=== PATIENT | female | born 1955 | race Caucasian/White ===

== ENCOUNTER 2019-06-17 01:18 | Day surgery (SDC) | payer OTHER, SELFPAY ==
[2019-06-10 16:11] VITALS: BMI 31.0
[2019-06-17 11:07] VITALS: BP 117/67; PULSE 71; RESP 18; TEMP 35.8; O2SAT 97; BMI 32.0
[2019-06-17] MEDS: LACTATED RINGERS 1,000 ML 150 ML IV CONT (11:16)
--- NOTE | 2019-06-17 11:41 | WPDANESEPPF ---
Anes - Initial Pre Proc Eval Procedure: Operation Date: 06/17/19 12:00 Proposed Procedures p Screening Colonoscopy - Ad Champagne MD Date/Time: 06/17/19 11:41 Surgeon: Ad Champagne MD Pre Op Diagnosis: Neoplasm Screening Patient Data Age: 64 Gender: F Height: 5 ft 4 in Weight: 84.6 kg Last Vital Signs Temp 35.8 C L 06/17/19 11:07 Pulse 71 06/17/19 11:07 Resp 18 06/17/19 11:07 BP 117/67 06/17/19 11:07 Pulse Ox 97 06/17/19 11:07 Allergies Allergy/AdvReac Type Severity Reaction Status Date / Time No Known Allergies Allergy Mild Verified 06/17/19 11:03 Home Medications Medication Instructions Recorded Confirmed Type atorvastatin 10 mg tablet 10 mg PO DAILY #30 tablet 05/02/19 06/10/19 Rx bumetanide 1 mg tablet 1 mg PO DAILY 05/02/19 06/10/19 History carvedilol 25 mg tablet 25 mg PO Q12H 05/02/19 06/10/19 History cholecalciferol (vitamin D3) 50 2,000 unit PO DAILY 05/02/19 06/10/19 History mcg (2,000 unit) tablet ramipril 2.5 mg capsule 2.5 mg PO DAILY 05/02/19 06/10/19 History calcium carbonate-vitamin D3 1 tablet PO DAILY 06/10/19 06/10/19 History [Calcium 500 + D] cholecalciferol (vitamin D3) 50 mcg PO DAILY 06/10/19 06/10/19 History [Vitamin D3] ferrous sulfate 27 mg PO DAILY 06/10/19 06/10/19 History irxlfbbl-gew-WX-lycopen-lutein 1 tablet PO DAILY 06/10/19 06/10/19 History [Centrum Silver] omega 4-iox-qno-fish oil [Fish Oil] 1 cap PO DAILY 06/10/19 06/10/19 History vitamin B complex [B 1 tablet PO DAILY 06/10/19 06/10/19 History Complex-Vitamin B12] Patient hx anesthesia problems: none Family hx anesthesia problems: none PMFSH Past Medical History Medical History (Updated 06/17/19 @ 11:45 by Silvino Mac MD) Cardiomyopathy HTN (hypertension) Hyperlipidemia Obesity Surgical History Surgical History Hx of cholecystectomy (~1980) Family History Family History Mother Hypertension Family history of elevated blood lipids Family history of neuropathy Sibling Hypertension Grandparent Family history of lung cancer Father Family history of lung cancer, Onset Age: 71 Other Family history of cardiovascular disease No family history of cardiovascular disease Social History Social History Smoking status: Never smoker Alcohol intake: current Anes - Eval Final PreProcedure Day of Procedure 06/17/19 11:41 Patient weight: obese Heart: regular rate and rhythm Lungs: clear to auscultation Airway: Mallampati scale class II Neurological: alert and oriented Last oral intake: >/= 8 hours ASA classification: III Emergent: no Anesthetic plan: proceed Anesthesia type and monitoring: general GIVS and standard monitoring Informed Consent: The patient's anesthetic plan and its attendant risks and benefits were discussed with the patient/family/POA. Questions were solicited and answers provided to the satisfaction of the patient/family/POA.
--- NOTE | 2019-06-17 12:45 | PM.HPGS ---
History of Present Illness History of Present Illness Consent: Risks, benefits, and alternatives have been discussed and questions answered. Patient agrees to proceed with procedure. Chief complaint: Neoplasm Screening Narrative: Jessy Mae is a 64 year old female her last colonoscopy 10 years ago but mother just diagnosed with colon cancer Review of Systems Constitutional: Constitutional: Denies headache(s) and Denies weakness Eyes: Eyes: Denies blurry vision ENT: Reports Normal hearing present, Denies headache(s) and Denies neck pain Cardiovascular: Cardiovascular: Denies chest pain and Denies dyspnea Respiratory: Respiratory: Denies dyspnea Gastrointestinal: Gastrointestinal: Reports no additional gastrointestinal complaints Genitourinary: Genitourinary: Denies dysuria Musculoskeletal: Musculoskeletal: Denies neck pain Integumentary/Breasts: Skin/Breast: Denies dry skin Neurologic: Reports Normal hearing present, Denies headache(s) and Denies weakness Psychiatric: Psychiatric: Denies anxiety Endocrine: Endocrine: Denies change in body appearance Hematologic/Lymphatic: Hematologic/Lymphatic: Denies easy bleeding Allergic/Immunologic: Allergic/Immunologic: Denies urticaria PMFSH Past Medical History Medical History (Updated 06/17/19 @ 12:45 by Ad Champagne MD) Cardiomyopathy Family history of colon cancer in mother HTN (hypertension) Hyperlipidemia Obesity Surgical History Surgical History Hx of cholecystectomy (~1980) Family History Family History Mother Hypertension Family history of elevated blood lipids Family history of neuropathy Sibling Hypertension Grandparent Family history of lung cancer Father Family history of lung cancer, Onset Age: 71 Other Family history of cardiovascular disease No family history of cardiovascular disease Social History Social History Smoking status: Never smoker Alcohol intake: current Meds Home Medications and Allergies Home Medications Medication Instructions Recorded Confirmed Type atorvastatin 10 mg tablet 10 mg PO DAILY #30 tablet 05/02/19 06/10/19 Rx bumetanide 1 mg tablet 1 mg PO DAILY 05/02/19 06/10/19 History carvedilol 25 mg tablet 25 mg PO Q12H 05/02/19 06/10/19 History cholecalciferol (vitamin D3) 50 2,000 unit PO DAILY 05/02/19 06/10/19 History mcg (2,000 unit) tablet ramipril 2.5 mg capsule 2.5 mg PO DAILY 05/02/19 06/10/19 History calcium carbonate-vitamin D3 1 tablet PO DAILY 06/10/19 06/10/19 History [Calcium 500 + D] cholecalciferol (vitamin D3) 50 mcg PO DAILY 06/10/19 06/10/19 History [Vitamin D3] ferrous sulfate 27 mg PO DAILY 06/10/19 06/10/19 History yaxgtvly-ewr-NX-lycopen-lutein 1 tablet PO DAILY 06/10/19 06/10/19 History [Centrum Silver] omega 3-blx-lhj-fish oil [Fish Oil] 1 cap PO DAILY 06/10/19 06/10/19 History vitamin B complex [B 1 tablet PO DAILY 06/10/19 06/10/19 History Complex-Vitamin B12] Allergies Allergy/AdvReac Type Severity Reaction Status Date / Time No Known Allergies Allergy Mild Verified 06/17/19 11:03 Vital Signs Vital Signs - 24 hr 06/17/19 11:07 Temperature 96.5 F L Pulse Rate 71 Respiratory Rate 18 Blood Pressure 117/67 Pulse Oximetry 97 Exam Const: General: comfortable and no acute distress HENMT: General nose exam: Normal nares present Eyes: General: appearance normal, both eyes and all related structures Neck: Neck: no JVD Resp: Auscultation: clear to auscultation bilaterally Cardio: Rate: regular rate Rhythm: regular rhythm GI: Inspection: non-distended GI Palp: Yes Soft to palpation Skin: General skin exam: normal color Neuro: General: gait normal Speech: normal speech Extrem: General: normal to inspection Psych: Mental Sta
[2019-06-17 13:13] VITALS: BP 90/54; PULSE 74; RESP 18
[2019-06-17 13:23] VITALS: BP 108/64; PULSE 66; RESP 15; O2SAT 98
[2019-06-17 13:33] VITALS: BP 101/58; PULSE 67; RESP 19; O2SAT 100
== END 2019-06-17 13:35 | disposition home or self-care (01) ==
PROVIDERS: PCP Family Medicine; Visit Provider Internal Medicine Gastroenterology
PROC: 0DJD8ZZ Inspection of Lower Intestinal Tract, Via Natural or Artificial Opening Endoscopic (ICD-10-PCS; CPT 45378; principal; 2019-06-17 12:00)
DX: Z12.11 Encounter for screening for malignant neoplasm of colon (principal); D12.3 Benign neoplasm of transverse colon; D12.8 Benign neoplasm of rectum; K57.30 Diverticulosis of large intestine without perforation or abscess without bleeding; I10 Essential (primary) hypertension; E78.5 Hyperlipidemia, unspecified; I42.9 Cardiomyopathy, unspecified; Z68.32 Body mass index [BMI] 32.0-32.9, adult
CPT/HCPCS: 45385; 88305; J2704; J7120

== ENCOUNTER 2021-02-23 14:19 | Outpatient (CLI) | payer MEDICARE, SELFPAY ==
--- NOTE | ~2021-02-23 | MM_ITS ---
EXAMINATION: MM screening [facility] BI w katie HISTORY: Screening TECHNIQUE: Craniocaudal and mediolateral oblique 3-D tomosynthesis images were obtained and synthetic 2-D images were generated. CAD analysis was submitted and interpreted. COMPARISON: Comparison to multiple prior studies sequentially, with oldest reviewed study dated 11/2013. BREAST PARENCHYMAL COMPOSITION: There are scattered areas of fibroglandular density. FINDINGS: There is focal architectural distortion in the lower central aspect of the right breast ant eriorly. The left breast is stable without evidence for malignancy. IMPRESSION: 1. Architectural distortion lower central aspect of the right breast. 2. Additional mammographic views and possible breast ultrasound are recommended. BI-RADS Category 0: Incomplete: Needs additional imaging evaluation. Reviewed, dictated and finalized at location A. IMPRESSION: 1. Architectural distortion lower central aspect of the right breast. 2. Additional mammographic views and possible breast ultrasound are recommended . BI-RADS Category 0: Incomplete: Needs additional imaging evaluation.
== END 2021-02-23 14:20 | disposition home or self-care (01) ==
LOC: ANHIMG 14:23
PROVIDERS: PCP Family Medicine; Visit Provider Family Medicine
DX: Z12.31 Encounter for screening mammogram for malignant neoplasm of breast (principal); R92.8 Other abnormal and inconclusive findings on diagnostic imaging of breast
CPT/HCPCS: 77063; 77067

== ENCOUNTER 2021-03-14 11:12 | Outpatient (CLI) | payer MEDICARE, SELFPAY ==
--- NOTE | ~2021-03-14 | MMUS_ITS ---
EXAMINATION: MM diagnostic [facility]ott RT w katie, US breast RT limited HISTORY: Possible right breast architectural distortion on screening mammogram TECHNIQUE: Additional 3-D tomosynthesis images of the right breast were performed and synthetic 2-D i mages were generated. CAD analysis was submitted and interpreted. High resolution limited right breas t ultrasound was performed. COMPARISON: 02/23/2021, 10/17/2018, 08/03/2017 FINDINGS: MAMMOGRAPHIC FINDINGS: There is a return to baseline fibroglandular appearance with spot compression of the right breast in the area questioned on screening mammogram. ULTRASOUND: There are small cysts in the lower outer quadrant of the breast. There is a questionable 4 mm hypoech oic mass at the 8:00 location 3 cm from the nipple. Differential also includes complicated cyst versu s fibroglandular tissue. Mildly dilated subareolar ducts are noted. IMPRESSION: 1. Probably benign sonographically detected complicated cyst versus fibroglandular tissue at the 8:00 location 3 cm from the nipple. 2. Recommend 6 month follow-up right breast ultrasound. BI-RADS category 3, probably benign findings. Reviewed, dictated and finalized at location A. 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 Probably benign sonographically detected complicated cyst versus fibroglandu lar tissue at the 8:00 location 3 cm from the nipple. 2. Recommend 6 month follow-up right breast ultrasound. BI-RADS category 3, probably benign findings.
== END 2021-03-14 11:13 | disposition home or self-care (01) ==
LOC: ANHIMG 11:14
PROVIDERS: PCP Family Medicine; Visit Provider Family Medicine
DX: R92.8 Other abnormal and inconclusive findings on diagnostic imaging of breast (principal)
CPT/HCPCS: 76642; 77061; 77065; G0279

== ENCOUNTER 2021-11-02 12:46 | Outpatient (CLI) | payer MEDICARE, SELFPAY ==
--- NOTE | ~2021-11-02 | US_ITS ---
EXAMINATION: US breast RT limited HISTORY: Six-month follow-up for probably benign cyst versus fibroglandular tissue of the right breas t TECHNIQUE: Limited right breast ultrasound is performed. FINDINGS: There is a 3 mm cyst at 8:00 location 3 cm from the nipple. The previously described questi onable hypoechoic mass at the o'clock location 3 cm from the nipple is no longer identified. IMPRESSION: Interval resolution of the previously described questionable mass of the o'clock location of the righ t breast. Routine screening mammography is recommended, due in February. BI-RADS Category 2: Benign finding(s). Reviewed, dictated and finalized at location A. IMPRESSION: Interval resolution of the previously described questionable mass of the o'cloc k location of the right breast. Routine screening mammography is recommended, d ue in February. BI-RADS Category 2: Benign finding(s).
== END 2021-11-02 12:47 | disposition home or self-care (01) ==
PROVIDERS: PCP Family Medicine; Visit Provider Family Medicine
DX: N60.01 Solitary cyst of right breast (principal)
CPT/HCPCS: 76642

== ENCOUNTER → 2022-04-05 11:02 | Outpatient (CLI) | payer MEDICARE, SELFPAY ==
--- NOTE | ~2022-04-05 | XR_ITS ---
Left Shoulder Technique: AP external rotation and Grashey views were obtained. Clinical History: Pain Findings: No fracture or dislocation is seen. Osseous alignment appears anatomic. The glenohumeral an d acromioclavicular joint spaces are preserved. Soft tissues are unremarkable. Impression: No significant abnormality seen. Reviewed, dictated and finalized at location [] CHONDRIAL DISORDERS COUNSELOR Impression: No significant abnormality seen.
== END ==
PROVIDERS: PCP Family Medicine; Visit Provider Family Medicine
DX: M25.512 Pain in left shoulder (principal)
CPT/HCPCS: 73030

== ENCOUNTER → 2022-08-24 12:02 | Outpatient (CLI) | payer MEDICARE, SELFPAY ==
--- NOTE | ~2022-08-24 | DEXA_ITS ---
Bone Density Report Name: ILEANA LUU Age: 67 Sex: Female Ethnicity: White Date of : 1955 Indication: postmenopausal; screening for osteoporosis; parental hip fracture; hysterectomy; Referring Provider: Jazmine Lozano Study: Bone densitometry was performed. Exam Date: August 24, 2022 Accession number: [id number] Bone Density: Region BMD T-score Z-score Classification AP Spine (L1, L2, L3) 1.025 0.1 1.9 Normal Femoral Neck (Left) 0.653 -1.8 -0.2 Osteopenia Total Hip (Left) 0.951 0.1 1.4 Normal Femoral Neck (Right) 0.795 -0.5 1.1 Normal Total Hip (Right) 1.008 0.5 1.9 Normal Total Hip Mean 0.980 0.3 1.7 Normal World Health Organization criteria for BMD impression classify patients as: Normal (T-score at or above -1.0), Osteopenia (T-score between -1.0 and -2.5), or Osteoporosis (T-score at or below -2.5). 10-year Fracture Risk(1): Major Osteoporotic Fracture 17% Hip Fracture 1.6% Reported Risk Factors: [place] (), Neck BMD=0.653, BMI=32.3, parental fracture (1) FRAX(R) Version 3.08. Fracture probability calculated for an untreated patient. Fracture probability may be lower if the patient has received treatment. Clinical Information Provided by Patient: Parent has had a hip fracture Has used the following medications: Vitamin D, Calcium, MTV Has the following medical conditions: Hysterectomy Patient maximum height was 64.5 Menopause Age: 55 No regular weight bearing exercise Drinks caffeinated beverages Onset of menses at age 12 Number of children 2 Impression: The patient has low bone mass, based on the Left Femoral Neck T-score. The patient has an estimated ten-year risk of hip fracture of 1.6% and an estimated ten-year risk of major fracture of 17%, based on the WHO FRAX algorithm. The patient has risk factors, including: parental hip fracture. Discussion: BONE DENSITY IS LOW AT ONE OR MORE SKELETAL SITES. This patient's lowest T-score is low at one or more skeletal sites. It meets the World Health Organization's (WHO) criteria for ?low bone mass? (T-score between -1.0 and -2.5). The patient's 10-year risk of fracture as calculated by FRAX is less than the threshold where pharmacological therapy is recommended by the National Osteoporosis Foundation (NOF). However, all treatment decisions require clinical judgment and consideration of individual patient factors, including patient preferences, comorbidities, previous drug use, risk factors not captured in the FRAX model (e.g., frailty, falls, vitamin D deficiency, increased bone turnover, interval significant decline in bone density) and possible under or overestimation of fracture risk by FRAX. The patient should follow a healthful lifestyle (good nutrition with adequate calcium and vitamin D, and appropriate weight-beari
--- NOTE | ~2022-08-24 | MM_ITS ---
EXAMINATION: MM screening [facility] BI w katie HISTORY: Screening mammogram TECHNIQUE: Craniocaudal and mediolateral oblique 3-D tomosynthesis images were obtained and synthetic 2-D images were generated. CAD analysis was submitted and interpreted. COMPARISON: 03/14/2021, 02/23/2021, 10/17/2018 BREAST PARENCHYMAL COMPOSITION: There are scattered areas of fibroglandular density. FINDINGS: There is a stable asymmetry of the breast on the mediolateral oblique view. No suspicious m ass, calcification, or architectural distortion are identified in either breast to suggest malignancy . There has been no suspicious interval change. IMPRESSION: 1. No mammographic evidence of malignancy. 2. Recommend routine screening mammography in one year. BI-RADS Category 2: Benign finding(s). Reviewed, dictated and finalized at location A.
== END ==
PROVIDERS: PCP Family Medicine; Visit Provider Family Medicine
DX: Z12.31 Encounter for screening mammogram for malignant neoplasm of breast (principal); Z78.0 Asymptomatic menopausal state; M85.852 Other specified disorders of bone density and structure, left thigh
CPT/HCPCS: 77063; 77067; 77080

== ENCOUNTER → 2022-09-15 09:09 | Outpatient (CLI) | payer MEDICARE, SELFPAY ==
--- NOTE | ~2022-09-15 | XR_ITS ---
XR chest 2V 09/15/2022 09:24 Indication: Cough for 5 days. Fever. Hypertension. Cardiomyopathy. Procedure: PA and lateral views of the chest Comparison: 11/16/2011 Findings: Borderline heart size. Pacemaker leads in expected position. No focal air space disease, pu lmonary edema, pleural effusion or suspected pneumothorax. Impression: 1: No acute cardiopulmonary disease. Reviewed, dictated and finalized at location B. Impression: 1: No acute cardiopulmonary disease.
== END ==
PROVIDERS: PCP Family Medicine; Visit Provider Family Medicine
DX: R05.9 Cough, unspecified (principal)
CPT/HCPCS: 71046

== ENCOUNTER 2022-09-15 09:22 | Outpatient (CLI) | payer MEDICARE, SELFPAY ==
[2022-09-15 11:36] LABS: Hematocrit 42.9 % (37.0-47.0); Hemoglobin 13.6 g/dL (12.0-15.0); Mean Corpuscular HGB Conc 31.7 g/dl (32-36); Mean Corpuscular Hemoglobin 30.5 pg (26-34); Mean Corpuscular Volume 96.2 fl (80-100); Mean Platelet Volume 10.4 fl (7.4-10.4); Platelet Count Result 174 k/mm3 (150-375); Red Blood Count 4.46 M/mm3 (4.2-5.4); Red Cell Distribution Width 13.3 % (11.5-14.5); White Blood Count 4.3 K/mm3 (4.5-10.0)
[2022-09-15 11:47] LABS: Alanine Aminotransferase 27 U/L (6-35); Albumin Level 4.2 g/dL (3.5-5.1); Alkaline Phosphatase 92 U/L (38-126); Anion Gap 3 mmol/L (8-16); Aspartate Amino Transferase 41 U/L (14-36); Bilirubin,Total 0.9 mg/dL (0.2-1.3); Blood Urea Nitrogen 12 mg/dL (7-17); Carbon Dioxide 31 mmol/L (22-30); Chloride 103 mmol/L (98-107); Cholesterol 132 mg/dL (0-200); Estimated Glomerular Filt Rate > 60; Glucose 102 mg/dL (65-110); HDL Direct 43 mg/dL; Potassium 4.4 mmol/L (3.4-5.0); Sodium 137 mmol/L (137-145); Triglycerides 153 mg/dL (<150)
[2022-09-15 11:58] LABS: LDL Cholesterol Direct 57 mg/dL
[2022-09-15 12:01] LABS: Hemoglobin A1C 5.5 % (<5.7)
[2022-09-21 14:55] LABS: Vitamin D 1,25 (OH)2 Total 43 pg/mL (18-72); Vitamin D2 1,25 (OH)2 <8 pg/mL; Vitamin D3 1,25 (OH)2 43 pg/mL
== END 2022-09-15 09:23 | disposition home or self-care (01) ==
LOC: ANHGOSHLAB 09:24
PROVIDERS: PCP Family Medicine; Visit Provider Family Medicine
DX: E55.9 Vitamin D deficiency, unspecified (principal); E66.9 Obesity, unspecified; E78.2 Mixed hyperlipidemia; E88.81 Metabolic syndrome and other insulin resistance; I10 Essential (primary) hypertension; R79.89 Other specified abnormal findings of blood chemistry; Z79.899 Other long term (current) drug therapy
CPT/HCPCS: 36415; 80053; 80061; 82652; 83036; 84443; 85027

== ENCOUNTER 2023-02-27 17:34 | Emergency (ER) | payer MEDICARE, SELFPAY ==
[2023-02-27 17:51] VITALS: BP 138/88; PULSE 79; RESP 16; TEMP 36.6; O2SAT 98
[2023-02-27 17:54] VITALS: BP 138/88; PULSE 79; RESP 16; TEMP 36.6; O2SAT 98
--- NOTE | 2023-02-27 19:11 | ED.GENADULT ---
HPI - General Adult General Chief complaint: Eye Problems Stated complaint: right eye red Source: patient Mode of arrival: ambulatory Limitations: no limitations History of Present Illness HPI narrative: Patient presents for evaluation of right eye irritation. Symptom onset today. She reports redness and thick yellow-green drainage from the right eye. She denies any visual disturbance. She wears glasses but not contacts. She has been in close proximity with three individuals who all have pink eye. Related Data Home Medications Medication Instructions Recorded Confirmed carvedilol 25 mg tablet (Coreg) 25 mg PO Q12H 05/02/19 01/22/23 cholecalciferol (vitamin D3) 50 2,000 unit PO DAILY 05/02/19 01/22/23 mcg (2,000 unit) tablet calcium carbonate 500 mg-vitamin 1 tablet PO DAILY 06/10/19 01/22/23 D3 5 mcg (200 unit) tablet (Calcium 500 + D) ferrous sulfate 27 mg iron tablet 27 mg PO DAILY 06/10/19 01/22/23 ecmiiogu-bqm-aters acid 0.4 1 tablet PO DAILY 06/10/19 01/22/23 mg-lycopene 300 mcg-lutein 250 mcg tablet (Centrum Silver) omega 7-pfs-qpe-fish oil 1,000 mg 1 cap PO DAILY 06/10/19 01/22/23 (120 mg-180 mg) capsule (Fish Oil) vitamin B complex (B 1 tablet PO DAILY 06/10/19 01/22/23 Complex-Vitamin B12 tablet) [facility] 02/27/23 02/27/23 sacubitril 24 mg-valsartan 26 mg tablet 02/27/23 tablet (Entresto) Allergies Allergy/AdvReac Type Severity Reaction Status Date / Time No Known Allergies Allergy Mild Verified 02/27/23 17:53 Review of Systems Review of Systems: CONSTITUTIONAL: Denies fever, chills, or sweats. EYES: Reports right eye redness with thick yellow-green drainage from the eye. Denies visual changes ENT: Denies rhinorrhea, congestion, sore throat, or otalgia. CARDIOVASCULAR: Denies chest pain, palpitations, or edema. RESPIRATORY: Denies cough or dyspnea. GASTROINTESTINAL: Denies abdominal pain, nausea, vomiting, or diarrhea. GENITOURINARY: Denies dysuria or hematuria. SKIN: Denies rash or itching. MUSCULOSKELETAL: Denies back pain, joint pain, or myalgia. NEUROLOGIC: Denies headache, numbness, dizziness, or weakness. PSYCHIATRIC: Denies anxiety or depression. [facility] Past Medical History Medical History Cardiac defibrillator in place (~02/22/20) Cardiomyopathy Family history of colon cancer in mother Hepatitis C antibody test negative (12/04/16) HTN (hypertension) Hyperlipidemia Obesity Surgical History Surgical History H/O: hysterectomy (~03/01/12) BRYON/BSO History of nephrectomy, left (~2011) Hx of cholecystectomy (~1980) Family History Family History Mother Hypertension Family history of elevated blood lipids Family history of neuropathy Sibling Hypertension Grandparent Family history of lung cancer Father Family history of lung cancer, Onset Age: 71 Other Family history of cardiovascular disease No family history of cardiovascular disease Social History Social History Smoking status: Never smoker Alcohol intake: current Substance use: never Substance use type: does not use Lack of Transportation: No Lack of Food: Never True Current Housing: I Have Housing Concerned About Future Housing: No Difficulty Paying Gas/Electric Bills: No Difficulty Paying for Meds: No Currently Unemployed: No Education: High School Diploma/GED Difficulty w/ Childcare or Family Care: No Living arrangements: with family Additional living arrangements comments: Occupation/Education: retired Gender identity (if verbalized by the patient): Female Agree to blood products: Yes Exam Narrative: GENERAL: Well-appearing, well-nourished, and in no acute distress. HEAD: Normoceph
== END 2023-02-27 19:16 | disposition home or self-care (01) ==
PROVIDERS: Emergency Provider Nurse Practitioner; PCP Family Medicine
DX: H10.9 Unspecified conjunctivitis (principal); I10 Essential (primary) hypertension; E78.5 Hyperlipidemia, unspecified; E66.9 Obesity, unspecified; Z68.32 Body mass index [BMI] 32.0-32.9, adult; Z95.810 Presence of automatic (implantable) cardiac defibrillator; Z90.5 Acquired absence of kidney
CPT/HCPCS: 99213; G0463

== ENCOUNTER 2023-09-03 09:05 | Outpatient (CLI) | payer MEDICARE, SELFPAY ==
--- NOTE | ~2023-09-03 | MM_ITS ---
EXAMINATION: MM screening [facility] BI w katie HISTORY: Screening mammogram TECHNIQUE: Craniocaudal and mediolateral oblique 3-D tomosynthesis images were obtained and synthetic 2-D images were generated. CAD analysis was submitted and interpreted. COMPARISON: 08/24/2022 bilateral screening mammogram 11/02/2021 Limited right breast ultrasound examination 03/14/2021 diagnostic right mammogram and Limited right breast ultrasound 03/12/2021 Bilateral screening mammogram examination BREAST PARENCHYMAL COMPOSITION: There are scattered areas of fibroglandular density. FINDINGS: Left pacemaker device overlies the left axillary area. Biopsy marker on the left; history of prior benign left breast stereotactic biopsy in 1999. There is no evidence of suspicious mass, calcification, or architectural distortion to suggest malignancy in e ither breast. There has been no suspicious interval change. IMPRESSION: 1. No mammographic evidence of malignancy. 2. Recommend routine screening mammography in one year. BI-RADS Category 1: Negative Reviewed, dictated and finalized at location A.
== END 2023-09-03 09:06 | disposition home or self-care (01) ==
LOC: ANHIMG 09:08
PROVIDERS: PCP Family Medicine; Visit Provider Family Medicine
DX: Z12.31 Encounter for screening mammogram for malignant neoplasm of breast (principal)
CPT/HCPCS: 77063; 77067

== ENCOUNTER 2024-05-19 13:46 | Outpatient (CLI) | payer MEDICARE, SELFPAY ==
--- OUTSIDE RECORDS SUMMARY | 2024-05-19 14:38 | XMS_ITS | Referral Summary ---
Author Organization [facility] D Address [address] [place] [address] Care Team Providers Care Mink Rancher Name Role Phone Stellakarlachata Jazmine Guardado Primary Care Provider [phone] Encounters Date Type Department Care Team Description 05/16/2024 Telephone [facility] [address] [facility] 8th [place] [address] [place] [address] Caren Spain MD 05/01/2024 8:30 AM CREDIT ADMINISTRATION SPECIALIST Ancillary Procedure [facility] [address] [place] [address] 3 [address] [place] [id number] Chronic systolic heart failure (CMS/HCC) (HCC) 04/25/2024 11:05 AM CREDIT ADMINISTRATION SPECIALIST Lab [facility] [address] [place] [address] Chronic systolic heart failure (CMS/HCC) (HCC) 04/25/2024 10:00 AM CREDIT ADMINISTRATION SPECIALIST Office Visit [facility] [address] [place] [address] Medical Office Building [address] [place] [phone] Caren Spain MD Chronic systolic heart failure (CMS/HCC) (HCC) (Primary Dx); PVC (premature ventricular contraction); LBBB (left bundle branch block); Primary osteoarthritis of both knees 03/26/2024 Orders Only [facility] [address] [facility] 8th [place] [address] [place] [address] Henrique Zuluaga MD from Last 3 Months Allergies No known active allergies Medications calcium carbonate-vitami n D3 (CALCIUM 600 + D,3,) 600 mg calcium- 200 unit capsule 0 0 5 Active multivitamin tablet tablet take 1 tablet by oral route every day with food 0 0 5 Active yrxaq-1u-fdy-epa -fish oil (OMEGA 3) 350-400 mg capsule 0 0 5 Active ferrous sulfate (IRON) 325 mg (65 mg iron) capsule, extended release 0 0 5 Active cholecalciferol (VITAMIN D3) 2,000 unit capsule 0 0 3 Active cyanocobalamin, vitamin B-12, 5,000 mcg tablet, sublingualIndica tions:Prevention of Vitamin B12 Deficiency [address] 1 tablet under the tongue nightly Active atorvastatin (LIPITOR) 10 mg tabletIndication s:hyperlipidemia Take 1 tablet (10 mg total) by mouth nightly Active sacubitriL-valsa rtan (ENTRESTO) 49-51 mg tabletIndication s:chronic heart failure Take 1 tablet by mouth 2 (two) times a day 60 tablet 11 4 07/24/19 25 Active spironolactone (ALDACTONE) 25 mg tablet Take 1 tablet (25 mg total) by mouth daily 90 tablet 3 4 08/05/19 25 Active carvediloL (COREG) 25 mg tablet TAKE 1 TABLET BY MOUTH TWICE DAILY WITH MEALS 180 tablet 3 4 Active dapagliflozin propanediol (FARXIGA) 10 mg tablet Take 1 tablet (10 mg total) by mouth daily 14 tablet 5 Active aspirin 81 mg chewable tablet Take 1 tablet (81 mg total) by mouth daily 30 tablet 4 04/25/19 25 Discontinu ed(Therapy completed) dapagliflozin propanediol (FARXIGA) 10 mg tablet Take 1 tablet (10 mg total) by mouth daily 28 tablet 4 04/25/19 25 Discontinu ed(Charanlica te order) dapagliflozin propanediol (FARXIGA) 10 mg tablet Take 1 tablet (10 mg total) by mouth daily for 14 days 14 tablet 4 05/13/19 25 Discontinu ed(Patient Reported) Hospital, Clinic, or Other Facility Administered Medication Ordered Dose Route Frequency Start Date End Date Status perflutren protein-a (OPTISON) 3 mL in sodium chloride 0.9% 8 mL syringe 1 - 8 mL IV Once in imaging 12/19/2023 Active perflutren protein-a (OPTISON) 3 mL in sodium chloride 0.9% 8 mL syringe 1 - 8 mL IV Once in imaging 05/01/2024 05/01/2024 Ended Active Problems Problem Noted Date Diagnosed Date PVC (premature ventricular contraction) 08/09/19 24 Assessment & Plan (10/23/2023 10:18 AM CDT): Now s/p ablation done on 10/21. Monitor on telemetry overnight. Started 81mg ASA on 7 AM. -Telemetry overnight with sinus rhythma, AsVP and rare PVCs - EP post-op eval: okay to d/c - recs: stop amiodarone, and start 81 mg ASA every day for 30 days - Outpatient follow up scheduled for 11/18 Anxiety 03/01/2023 Osteoarthritis of both knees 07/26/2022 Assessment & Plan (10/22/2023 4:50 PM CDT): Prn analgesia Osteoarthritis of knee 03/01/2022 Hyperlipidemia 09/10/2020 Assessment & Plan (10/22/2023 4:49 PM CDT): statin Assessment & Plan (03/01/2022 2:46 PM CREDIT ADMINISTRATION SPECIALIST): Well controlled with an LDL of 16 mg/dL. Continue low intensity Lipitor. Assessment & Plan (02/25/2021 11:44 AM CDT): She is on chronic lipid-lowering therapy. LDL 41 on 09/09/2020. Continue atorvastatin 10 mg daily. Assessment & Plan (09/10/2020 8:21 AM CDT): On low-dose atorvastatin, LDL is 41. Nonfasting triglycerides are elevated. Continue atorvastatin 10 mg daily. Presence of cardiac resynchr onization therapy defibrillator (SAMPLE GRADER-D) 03/04/2020 Overview (03/04/2020): Medtronic [place] HF QUAD SAMPLE GRADER-D implanted on 03/03/20 for NICM/CHF/LBBB. Toney/Victor Manuel Membreno Assessment & Plan (02/25/2021 11:45 AM CDT): Monitored through the arrhythmia Center. Assessment & Plan (09/10/2020 8:20 AM CDT): Followed through Dr. Ziegler. Chronic systolic heart failure (CMS/HCC) 020 Assessment & Plan (02/25/2021 11:43 AM CDT): Heart failure is compensated on current medications which were not changed. Assessment & Plan (09/10/2020 8:20 AM CDT): No evidence of congestive heart failure at this time. LBBB (left bundle branch block) 01/19/2017 Assessment & Plan (02/25/2021 11:44 AM CDT): Hemodynamic effect reversed with cardiac resynchronization. Assessment & Plan (09/10/2020 8:20 AM CDT): Given improvement in each ejection fraction with resynchronization therapy, left bundle branch block was a contributor to her cardiomyopathy. Assessment & Plan (01/30/2020 11:07 AM CDT): Longstanding and nonischemic. Assessment & Plan (01/27/2019 10:04 AM CDT): Longstanding and not ischemic. Assessment & Plan (01/21/2018 10:25 AM CDT): Longstanding. She has been evaluated by Dr. Ziegler in the past for consideration of resynchronization therapy, and he did not think it was indicated as long as her EF was above 35%. Assessment & Plan (01/19/2017 6:13 PM CDT): Longstanding and nonischemic. Cardiomyopathy 07/10/2014 Overview (07/28/2016): Cardiomyopathy Etiology Unknown Assessment & Plan (10/22/2023 4:49 PM CDT): Continue home meds Assessment & Plan (03/01/2022 2:45 PM CREDIT ADMINISTRATION SPECIALIST): With restored LV function. Continue Altace and carvedilol. Advised her that she could take her Bumex on an as-needed basis. Assessment & Plan (02/25/2021 11:43 AM CDT): Ejection fraction is now normal with cardiac resynchronization. Continue carvedilol 25 mg b.i.d. and ramipril 2.5 mg daily. Continue Bumex 1 mg daily. (Compliance data looks as if she has not been getting these filled but she said that somehow she ended up with a large stock of medications and did not need refills for a while, but says she is very compliant with her medications) Assessment & Plan (09/10/2020 8:20 AM CDT): Cardiomyopathy has nearly resolved with cardiac resynchronization therapy. Continue current medications, including carvedilol and Altace. 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 LV ejection fraction is now 32%. The patient has a left bundle branch block pattern with a QRS duration of 160 msec. I recommended that she undergo placement of a biventricular pacing ICD, both for the primary prevention of sudden cardiac arrest as well as for cardiac resynchronization. I explained the risks and benefits, and the patient would like to proceed. My office will make appropriate arrangements. From: Raghu Wilde AE, JP, Ellenbogen KA, Marta PAIGE III, Brenda Mckinney RA, Rancho PECK, Tara Florian, Jeremy GONZALEZ, Alexis ARANA, Enoch MARTINEZ, Elizabeth MARCOS, Page RL, Jessa FELIX, Jose MAYER, Augustus ROGER, Jesica AMES. ACC/AHA/HRS 2008 guidelines for device-based therapy of cardiac rhythm abnormalities: a report of the [place] College of Cardiology/Swedish Heart Association Task Force on Practice Guidelines (Writing Committee to Revise the ACC/AHA/NASPE 2002 Guideline Update for Implantation of Cardiac Pacemakers and Antiarrhythmia Devices). J Am Rudy Cardiol 2008;51:e1- 62. Class I: ICD therapy is indicated in patients with nonischemic DCM who have an LVEF less than or equal to 35% and who are in NYHA functional Class II or III. (Level of Evidence: B) From: Raghu Wilde AE, JP, Mya COHN, Marta PAIGE III, Brenda Mckinney RA, Rancho PECK, Tara Florian, Jeremy GONZALEZ, Alexis ARANA, Enoch MARTINEZ, lEizabeth MARCOS, Page RL, Jessa FELIX, Jose MAYER, Augustus ROGER, [place] 2012 ACCF/AHA/HRS focused update incorporated into the ACCF/AHA/HRS 2008 guidelines for device-based therapy of cardiac rhythm abnormalities: a report of the [place] College of Cardiology Foundation/Swedish Heart Association Task Force on Practice Guidelines and the Heart Rhythm Society. J Am Rudy Cardiol 2013;61:e6-75. Class I: SAMPLE GRADER is indicated for patients who have LVEF less than or equal to 35%, sinus rhythm, LBBB with a QRS duration greater than or equal to 150 ms, and NYHA class II, ([phone]) III, or ambulatory IV ([phone]); symptoms on GDMT. (Level of Evidence: A for NYHA class III/IV; Level of Evidence: B for NYHA class II) Assessment & Plan (01/30/2020 11:05 AM CDT): Long history of cardiomyopathy. This is felt to be related to her chronic left bundle branch block. She is on appropriate medication. Despite this, her EF has dropped to 32%. I believe she would benefit from cardiac resynchronization therapy and will refer her back to Dr. Ziegler. Continue current medications. Assessment & Plan (01/27/2019 10:03 AM CDT): Moderate cardiomyopathy, stable. No evidence of congestive heart failure. Explained to her and her that her cardiomyopathy is not severe enough to be limiting her ability to exercise, but deconditioning will contribute to her shortness of breath. I told her I wanted her to take a 20 minutes walk or bike ride on a daily basis. Assessment & Plan (01/21/2018 10:24 AM CDT): Moderate left ventricular dysfunction persists, without symptoms or evidence of congestive heart failure. While her ejection fraction is lower this year than last year, visually her echo does not look too different. Assessment & Plan (01/19/2017 6:13 PM CDT): Echocardiogram today shows slight improvement in her ejection fraction. At this point there is no reason to consider biventricular pacing. Her ejection fraction is not so low as to account for her exertional dyspnea. I suspect that her dyspnea is more related to deconditioning and recommended that she become more active. Immunizations Name Administration Dates Next Due Influenza, Quadrivalent, Spl it, Preservative Free, Intramuscular 2018 Tdap 12/16/2018 Social History Tobacco Use Types Packs/Day Years Used Date Smoking Tobacco: Never Smokeless Tobacco: Never Tobacco Cessation:Counseling Given: Not Answered Alcohol Use Standard Drinks/Week Comments Yes 0 (1 standard drink = 0.6 oz pur e alcohol) AUDIT-C Answer Date Recorded Q1: How often do you have a drink containing alc ohol? 2-4 times a month 10/19/2023 Q2: How many drinks containi ng alcohol do you have on a typical day when you are drinking? 1 or 2 10/19/2023 Frequency of Binge Drinking Not on file 09/22 Personal Safety Answer Date Recorded Have you ever been in or are you currently in a harmful physical or emotional relationship or is someone making you feel afraid or unsafe? Denies 10/22/2023 Comments No Sex and Gender Information Value Date Recorded Sex Assigned at Not on file Legal Sex Female 4:02 PM CREDIT ADMINISTRATION SPECIALIST Gender Identity Female 02/13/2020 7:45 AM CDT Sexual Orientation Straight 02/13/2020 7: 45 AM CDT Last Filed Vital Signs Vital Sign Reading Time Taken Comments Blood Pressure 127/91 04/25/2024 9:42 AM CREDIT ADMINISTRATION SPECIALIST Pulse 65 04/25/2024 10:35 AM CREDIT ADMINISTRATION SPECIALIST Temperature 36.6 ??C (97.9 ??F) 10/23/2023 6:40 AM CD T Respiratory Rate 17 10/23/2023 6:40 AM CDT Oxygen Saturation 98% 04/25/2024 9:42 AM CREDIT ADMINISTRATION SPECIALIST Inhaled Oxygen Concentration - - Weight 85.7 kg (189 lb) 04/25/2024 9:42 AM CREDIT ADMINISTRATION SPECIALIST Height 162.6 cm (5' 4 ) 04/25/2024 9:42 AM CREDIT ADMINISTRATION SPECIALIST Body Mass Index 32.44 04/25/2024 9:42 AM CREDIT ADMINISTRATION SPECIALIST Plan of Treatment Not on file Medical Devices Implanted Type Area Vocational Teacher Device Identifier Shelf Expiration Date Model / Serial / Lot Medtronic Inc [id number] Cardiac [place] Hf 2 Chamber Df4 Inline [facility] Is4 - [id number] - [id number] Implanted:Qty: 1 on 03/03/2020 by True Ziegler MD at [facility] ICD Medtronic Inc [id number] 07/04/2021 DTP [id number] / [id number] 2S / Medtronic Cardiac Rhythm Mgmt [id number] Sprint Quattro Secure 62cm Tripolar Screw In Extendable - [id number] - [id number] Implanted:Qty: 1 on 03/03/2020 by True Ziegler MD at [facility] Lead Medtronic Inc [id number] 11/11/2021 [id number] / [id number] 5V / Medtronic Cardiac Rhythm Mgmt 5076-52 Capsurefix Novus 6.2fr 2mm 52cm Bipolar Screw In Implantable Latex Free - [id number] - [id number] Implanted:Qty: 1 on 03/03/2020 by True Ziegler MD at [facility] Lead Medtronic Inc [id number] 12/23/2021 507 6-52 / [id number] / Medtronic Inc [id number] Lead Attain Stability Quad Mri Surescan Lv 88mm - [id number] - [id number] Implanted:Qty: 1 on 03/03/2020 by True Ziegler MD at [facility] Lead Medtronic Inc [id number] 08/28/2021 [id number] / [id number] 1V / [employer]iva [employer] Inc Device Vascular Closure Femoral Artery Bioabsorbable Dual Method Vascade 6-7fr Collagen 547-204d-04q - [id number] - [id number] Implanted:Qty: 1 on 10/22/2023 by Henrique Zuluaga MD at [facility] Vascular Closure Device [employer] Inc 07/24/2025 [id number] -05U / [id number] / [id number] [employer] Inc Vascade Mvp 6-12fr Venous Closure [id number] - [id number] - [id number] Implanted:Qty: 1 on 10/22/2023 by Henrique Zuluaga MD at [facility] Vascular Closure Device [employer] 06/26/2025 [id number] -[id number] / [id number] / [id number] [employer] Vascade Mvp 6-12fr Venous Closure [id number] - [id number] - [id number] Implanted:Qty: 1 on 10/22/2023 by Henrique Zuluaga MD at [facility] Vascular Closure Device [employer] 06/26/2025 [id number] -[id number] / [id number] / [id number] Procedures Procedure Name Priority Date/Time Associated Diagnosis Comments TRANSTHORACIC ECHO (TTE) COMPLETE W DOPPLER/CF W CONTRAST Routine 05/01/2024 9:27 AM CREDIT ADMINISTRATION SPECIALIST Chronic systolic heart failure (CMS/HCC) (HCC) EGFR Routine 04/25/2024 11:11 AM CREDIT ADMINISTRATION SPECIALIST Chronic systolic heart failure (CMS/HCC) (HCC) COMPREHENSIVE METABOLIC PANEL Routine 04/25/2024 11:11 AM CREDIT ADMINISTRATION SPECIALIST Chronic systolic heart failure (CMS/HCC) (HCC) DEVICE CHECK - REMOTE Routine 03/26/2024 11:47 PM CREDIT ADMINISTRATION SPECIALIST from Last 3 Months Results * TRANSTHORACIC ECHO (TTE) COMPLETE W DOPPLER/CF W CONTRAST (05/01/2024 9:27 AM CREDIT ADMINISTRATION SPECIALIST) LV EF 55 % CARDIOREPORT Anatomical Region Laterality Modality Ultrasound 05/01/2024 8:30 AM CREDIT ADMINISTRATION SPECIALIST Narrative 05/01/2024 2:40 PM CREDIT ADMINISTRATION SPECIALIST Patient name: Jessy Mae Date of test: 05/01/2024 Type of test: TTE w/Doppler [facility] #: 0 Date of : 1955 (F) Scale Model Maker: COTY Benton Referring Physician: CAREN SPAIN MD Contrast Agent: 0.4 ml Optison Administered, (2.6 ml wasted). Contrast Administered by: Kaykay Kenny RN Supervised/Interpreted by: Sebastian Colon MD Diagnosis: Location: [facility] Reason for test: Chronic Heart Failure MV Structure: Normal, ?MV Motion: Normal, ?? Mitral Annulus: Normal AV Structure: tricuspid and is Normal, ?? AV Motion: Normal Aotic root: Normal, ?TM: Normal, ?? PV: Normal Valvular Vegetations: none seen, ?Mass/Thrombi: none seen RA: Normal Measurements: ?M-Mode ?Normal ? Aotic Root: ? <3.8 ? LA: ? <3.8 ? RV: ? <2.8 ? LV(ED): ? <5.7 ? LV(ES): ? Variable ?2D Linear Normal ? Aotic Root: 3.7 cm ?<3.6 ? Ao Indexed: 1.9 cm/M2 <2.0 ? LA: ? <3.8 ? RV: ? 3.2 cm ?<4.2 ? LV(ED): ? 4.5 cm ?<5.3 ? LV(ES): ? 3.2 cm ?<3.5 ?2D Vol. ?? Normal ?Indexed ?? Indexed Normal RA: ? 32.0 ml ? 16.8 ml/M2 ?9-33 ? LA: ? 41.0 ml ? 21.5 ml/M2 ?16-34 ? RV: ? <11.6 ? LV(ED): ? 102.0 ml ??46-106 ?53.4 ml/M2 ?<62 ? LV(ES): ? 46.0 ml ?? 14-42 ? 24.1 ml/M2 ?<25 ?3D Vol. ? Indexed Normal LV(ED): ? 54.5 mL/m2 ?? <62 ? LV(ES): ? 23.6 mL/m2 ?? <24 ? LV EF: 55 % ?? (Normal: >=54%) ?? LV Septum: 1.3 cm ?(Normal: <0.9 cm) Wall Motion Scoring (1=Normal 2=Hypo 3=Akinetic 4=Dyskin./Aneurysm 0=Not visualized) Parasternal Long [place]:MAS=1 BAS=1 MIL=1 DAMON=1 Parasternal Short [place]:MAS=1 MIS=1 AK=1 MIL=1 MAL=1 MA=1 Apical 4 Chambers:=1 MIS=1 BIS=1 BAL=1 MAL=1 AL=1 AC=1 Apical 2 Chambers:AI=1 AK=1 BI=1 BA=1 MA=1 AA=1 AC=1 LV Global Longitudinal Strain: RV Global Longitudinal Strain: LV Function: Normal LV Ejection Fraction, ??(EF=55%) RV Function: Normal Septal Motion: Normal Pericardial Effusion: none seen Atrial Septum: Normal DOPPLER/COLOR FLOW DOPPLER RESULTS: Diastolic Function: Grade I, altered relax. w/N. LA pres. Tricuspid Valve: normal TV Pulmonic Valve: normal PV AV Regurgitation: No AR seen AV Stenosis: no AV Area: ??cm2 AV Pressure Gradient (mmHg): Mean: 0, Peak:0 MV Regurgitation: No MR seen MV Stenosis: no MS MV Area: ??cm2 MV Pressure Gradient (mmHg): Mean: 0 MV ERO: ??cm Regurg. Vol.: ??ml/beat Regurg. Frac.: ??% PA Pressure: 20 mmHg DOPPLER/COLOR FOLOW DOPPLER COMMENTS: No AR seen, No MR seen, no , no MS, normal TV, normal PV. Diastolic function: Grade I, altered relax. w/N. LA pres. CONTRAST: 0.4 ml Optison Administered, (2.6 ml wasted). SUMMARY: Normal LV and RV size and systolic function. Prominent anterior epicardial fat seen. LA is normal. Concentric LV remodeling. Normal Inferior vena cava. No significant valvular abnormalities noted. Confirmed on ??05/01/2024 - 14:40:19 by Sebastian Colon MD By signing this report, the attending tribal council member certifies that he or she has personally supervised and interpreted the echocardiogram and has reviewed and or edited and agrees with the written comments contained within the report. Procedure Note Sebastian Colon MD - 05/01/2024 Patient name: Jessy Mae Date of test: 05/01/2024 Type of test: TTE w/Doppler [facility] #: 0 Date of : 1955 (F) Scale Model Maker: COTY Benton Referring Physician: CAREN SPAIN MD Contrast Agent: 0.4 ml Optison Administered, (2.6 ml wasted). Contrast Administered by: Kaykay Kenny RN Supervised/Interpreted by: Sebastian Colon MD Diagnosis: Location: [facility] Reason for test: Chronic Heart Failure MV Structure: Normal, MV Motion: Normal, Mitral Annulus: Normal AV Structure: tricuspid and is Normal, AV Motion: Normal Aotic root: Normal, TM: Normal, PV: Normal Valvular Vegetations: none seen, Mass/Thrombi: none seen RA: Normal Measurements: M-Mode Normal Aotic Root: <3.8 LA: <3.8 RV: <2.8 LV(ED): <5.7 LV(ES): Variable 2D Linear Normal Aotic Root: 3.7 cm <3.6 Ao Indexed: 1.9 cm/M2 <2.0 LA: <3.8 RV: 3.2 cm <4.2 LV(ED): 4.5 cm <5.3 LV(ES): 3.2 cm <3.5 2D Vol. Normal Indexed Indexed Normal RA: 32.0 ml 16.8 ml/M2 9-33 LA: 41.0 ml 21.5 ml/M2 16-34 RV: <11.6 LV(ED): 102.0 ml 46-106 53.4 ml/M2 <62 LV(ES): 46.0 ml 14-42 24.1 ml/M2 <25 3D Vol. Indexed Normal LV(ED): 54.5 mL/m2 <62 LV(ES): 23.6 mL/m2 <24 LV EF: 55 % (Normal: >=54%) LV Septum: 1.3 cm (Normal: <0.9 cm) Wall Motion Scoring (1=Normal 2=Hypo 3=Akinetic 4=Dyskin./Aneurysm 0=Not visualized) Parasternal Long [place]:MAS=1 BAS=1 MIL=1 DAMON=1 Parasternal Short [place]:MAS=1 MIS=1 AK=1 MIL=1 MAL=1 MA=1 Apical 4 Chambers:=1 MIS=1 BIS=1 BAL=1 MAL=1 AL=1 AC=1 Apical 2 Chambers:AI=1 AK=1 BI=1 BA=1 MA=1 AA=1 AC=1 LV Global Longitudinal Strain: RV Global Longitudinal Strain: LV Function: Normal LV Ejection Fraction, (EF=55%) RV Function: Normal Septal Motion: Normal Pericardial Effusion: none seen Atrial Septum: Normal DOPPLER/COLOR FLOW DOPPLER RESULTS: Diastolic Function: Grade I, altered relax. w/N. LA pres. Tricuspid Valve: normal TV Pulmonic Valve: normal PV AV Regurgitation: No AR seen AV Stenosis: no AV Area: cm2 AV Pressure Gradient (mmHg): Mean: 0, Peak:0 MV Regurgitation: No MR seen MV Stenosis: no MS MV Area: cm2 MV Pressure Gradient (mmHg): Mean: 0 MV ERO: cm Regurg. Vol.: ml/beat Regurg. Frac.: % PA Pressure: 20 mmHg DOPPLER/COLOR FOLOW DOPPLER COMMENTS: No AR seen, No MR seen, no , no MS, normal TV, normal PV. Diastolic function: Grade I, altered relax. w/N. LA pres. CONTRAST: 0.4 ml Optison Administered, (2.6 ml wasted). SUMMARY: Normal LV and RV size and systolic function. Prominent anterior epicardial fat seen. LA is normal. Concentric LV remodeling. Normal Inferior vena cava. No significant valvular abnormalities noted. Confirmed on 05/01/2024 - 14:40:19 by Sebastian Colon MD By signing this report, the attending tribal council member certifies that he or she has personally supervised and interpreted the echocardiogram and has reviewed and or edited and agrees with the written comments contained within the report. us Caren Spain MD CV ECHO PROCEDURES Final R esult * eGFR (04/25/2024 11:11 AM CREDIT ADMINISTRATION SPECIALIST) [facility] eGFR 70 >=60 mL/min/1. 73 m2 Comment: Interpretive Data Reference Interval Normal ?>/= 90 mL/min/1.73m2 Mildly decreased* ? 60 - 89 mL/min/1.73m2 Mildly to moderately decreased ?45 - 59 mL/min/1.73m2 Moderately to severely decreased ??30 - 44 mL/min/1.73m2 Severely decreased ?15 - 29 mL/min/1.73m2 Kidney Failure ?< 15 ??mL/min/1.73m2 *Relative to young adult level Estimated glomerular filtration rate is determined by the 2020 CKD-EPI equation recommended by the National Kidney Foundation (A Unifying Approach to GFR Estimation: Recommendations of the NKF-ASK Task Force on Reassessing the Inclusion of Race in Diagnosing Kidney Disease, JASN 2020). The CKD-EPI equation should not be used for patients with unstable renal function and has not been validated in children and those over 70. Current interpretive data was last reviewed 2021. Blood 04/25/2024 11:1 1 AM CREDIT ADMINISTRATION SPECIALIST 04/25/2024 12:02 PM CREDIT ADMINISTRATION SPECIALIST us Caren Spain MD LAB BLOOD ORDERABLES Final Result [facility] [address] [facility]. [place] [address] * Comprehensive metabolic panel (04/25/2024 11:11 AM CREDIT ADMINISTRATION SPECIALIST) Sodium 140 135 - 145 mmol/L Potassium, pl 4.5 3.3 - 4.9 mmol/L [facility] Chloride 103 97 - 110 mmol/L [facility] CO2 26 22 - 32 mmol/L [facility] Anion gap 11 2 - 15 mmol/L [facility] BUN 19 6 - 25 mg/dL [facility] Creatinine 0.90 0.60 - 1.10 mg/dL [facility] Glucose 102 70 - 199 mg/dL [facility] Comment: Interpretive Data Fasting glucose >/= 126 mg/dl is diagnostic for diabetes. ?? Fasting is defined as no caloric intake for at least 8 hours. Fasting glucose between 100 mg/dl to 125 mg/dl is diagnostic of prediabetes. In a patient with classic symptoms of hyperglycemia or hyperglycemic crisis, a random glucose >/= 200 mg/dl is diagnostic for diabetes. In the absence of unequivocal hyperglycemia, results should be confirmed by repeat testing. The classification and Diagnosis of Diabetes Diabetes Care 2021; 46: S19-S40. Current interpretive data was last revised 2022. Calcium 9.8 8.5 - 10.3 mg/dL [facility] Bilirubin, total 1.0 0.1 - 1.2 mg/dL [facility] Protein, pl 7.1 6.5 - 8.5 g/dL [facility] Albumin 4.4 3.5 - 5.0 g/dL [facility] Alk phos 86 40 - 130 Units/L [facility] ALT 18 7 - 45 Units/L [facility] AST 19 10 - 45 Units/L [facility] Blood 04/25/2024 11:1 1 AM CREDIT ADMINISTRATION SPECIALIST 04/25/2024 12:02 PM CREDIT ADMINISTRATION SPECIALIST us Caren Spain MD LAB BLOOD ORDERABLES Final Result RICK SOLOMONCH [id number] [facility]. [place] [address] * DEVICE CHECK - REMOTE (03/26/2024 11:47 PM CREDIT ADMINISTRATION SPECIALIST) Anatomical Region Laterality Modality Other 03/26/2024 11:4 7 PM CREDIT ADMINISTRATION SPECIALIST Narrative 04/02/2024 2:02 PM CREDIT ADMINISTRATION SPECIALIST Interpretation Summary: Battery and Leads (BL) Normal parameters noted on battery and lead(s) --- 7.1 yrs remaining longevity (implanted 2019). ?Lead impedance, sensing, and threshold trends stable and appropriate. ?? No short V-V intervals. Presenting Rhythm (NE) Atrial Sensing-Ventricular Pacing (-STONEWORKING BELT SANDER) --- /STONEWORKING BELT SANDER 77 to 85 bpm. Arrhythmic events (AE) Nonsustained VT event(s) identified --- Since 12/27/23: ?? One NSVT episode, 2 sec. Anticoagulation ??(AC) Anticoagulation is not clinically indicated Patient is not on anticoagulant therapy Transmission Information (TI) Device Summary Report Follow Up (FU) Patient's primary treating physician will be apprised of findings Procedure Note Henrique Zuluaga MD - 04/02/2024 Interpretation Summary: Battery and Leads (BL) Normal parameters noted on battery and lead(s) --- 7.1 yrs remaininglongevity (implanted 2019). Lead impedance, sensing, and thresholdtrends stable and appropriate. No short V-V intervals. Presenting Rhythm (NE) Atrial Sensing-Ventricular Pacing (-STONEWORKING BELT SANDER) --- /STONEWORKING BELT SANDER 77 to 85 bpm. Arrhythmic events (AE) Nonsustained VT event(s) identified --- Since 12/27/23: One NSVT episode,2 sec. Anticoagulation (AC) Anticoagulation is not clinically indicated Patient is not on anticoagulant therapy Transmission Information (TI) Device Summary Report Follow Up (FU) Patient's primary treating physician will be apprised of findings Henrique Zuluaga MD CV CARDIAC SERVI RAQUEL PROCEDURES Final Result from Last [address] [facility]ICARE [facility] Member Subscriber Plan / Payer (Ef fective 2020-) Name:Jessy Mae Relation to Subscriber:Self Name:Jessy Mae Payer ID:[id number] Group ID:Not on file Type:COMMERCIAL Address: [facility] [address] [id number] [facility]ARE [facility] Advance Directives For more information, please contact: [phone] * Full Code (Latest Code Status on File) Date Activated Date Inactivated Comments 10/22/2023 4:46 PM 10/23/2023 3:25 PM Care Teams Mink Rancher Relationship Specialty Start Date End Date Jazmine Lozano DO PCP - General Family Medicine 01/30/20
--- OUTSIDE RECORDS SUMMARY | 2024-05-19 14:38 | XMS_ITS | Encounter Summary ---
Author Organization [facility] Address [address] [place] [address] Phone Care Team Providers Care Litigator Name Role Phone Jazmine Lozano Primary Care Provider [phone]- [phone] Encounter Details Date Type Department Care Team (Late st Contact Info) Description 05/16/2024 Telephone [facility] Cardiology [address] [facility] Advanced [address] 8th [place] [address] [place] [address] Caren Louis MD [address] [place] [address] Social History Tobacco Use Types Packs/Day Years Used Date Smoking Tobacco: Never Smokeless Tobacco: Never Alcohol Use Standard Drinks/Week Comments Yes 0 [...] on file Legal Sex Female 4:02 PM MATE CHIEF Gender Identity Female 02/13/2020 7:45 AM CDT Sexual Orientation Straight 02/13/2020 7: 45 AM CDT documented as of this encounter Miscellaneous Notes * Telephone Encounter - DionisioXiomara walker - 05/19/2024 11:12 AM CST Cira with Pre [facility]est[facility]PAT calling to let you know they did not receive the last OV note nor the Echo. Pls send again. Pls also let her know if able to locate pt's most recent EKG tracing. Confirmed CHIEF * Telephone Encounter - Jennifer King - 05/16/2024 2:47 PM CST Missy Hernandez in [place] calling stating pt is having knee replacement with them in May and they need the following faxed to them at [phone] Office notes from 04/25/24 Tracing of EKG from 04/25/24 And echo 05/01/24 CHIEF documented in this encounter Plan of Treatment Not on file documented as of this encounter Visit Diagnoses Not on filedocumented in this encounter Care Teams Litigator Relationship Specialty Start Date End Date Jazmine Lozano DO PCP - General Family Medicine 01/30/20 documented as of this encounter
--- OUTSIDE RECORDS SUMMARY | 2024-05-19 14:38 | XMS_ITS | Clinical Summary ---
[facility] Organization [facility] Address [address] [place] [address] Care Team Providers Care Cinder Pitman Name Role Phone Stellakarlachata Jazmine Debby Primary Care Provider +1- [phone] Allergies No known active allergies Medications calcium carbonate-vitami n D3 (CALCIUM 600 + D,3,) 600 mg calcium- 200 unit capsule 0 0 5 Active multivitamin tablet tablet take 1 tablet by oral route every day with food 0 0 5 Active caozf-2w-abp-epa -fish oil (OMEGA 3) 350-400 mg capsule [...] daily 28 tablet 4 04/25/19 25 Discontinu ed(Duplica te order) dapagliflozin propanediol (FARXIGA) 10 mg [...] on telemetry overnight. Started 81mg ASA on 7/2 AM. -Telemetry overnight with sinus rhythma, AsVP [...] statin Assessment & Plan (03/01/2022 2:46 PM GAS MAKER): Well controlled with an LDL of 16 mg/dL. Continue low intensity Lipitor. Assessment & Plan (02/25/2021 11:44 AM CDT): She is on chronic lipid-lowering therapy. LDL 41 on 09/09/2020. Continue atorvastatin 10 mg daily. Assessment & Plan (09/10/2020 8:21 AM CDT): On low-dose atorvastatin, LDL is 41. Nonfasting triglycerides are elevated. Continue atorvastatin 10 mg daily. Presence of cardiac resynchr onization therapy defibrillator (DENTAL APPLIANCE FIXER-D) 03/04/2020 Overview (03/04/2020): Medtronic Jacumba HF QUAD DENTAL APPLIANCE FIXER-D implanted on 03/03/20 for NICM/CHF/LBBB. Toney/Victor Manuel Membreno Assessment & Plan (02/25/2021 11:45 AM CDT): Monitored through the arrhythmia Center. Assessment & Plan (09/10/2020 8:20 AM CDT): Followed through Dr. Ziegler. Chronic systolic heart failure ([facility]) 020 Assessment & Plan (02/25/2021 11:43 AM [...] meds Assessment & Plan (03/01/2022 2:45 PM GAS MAKER): With restored LV function. Continue Altace and [...] Altace. 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 LV ejection [...] KA, Marta PAIGE III, Brenda Mckinney RA, Tara Vickers AM, Jeremy GONZALEZ, Alexis ARANA, Enoch MARTINEZ, Elizabeth MARCOS, Page RL, Jessa FELIX, Jose MAYRE, Augustus ROGER, [place]. ACC/AHA/HRS 2008 guidelines for device-based therapy of cardiac rhythm abnormalities: a report of the [place] College of Cardiology/[place] Heart Association Task Force on Practice Guidelines [...] Evidence: B) From: Raghu Wilde AE, JP, Ellenbogen KA, Estes NAM III, Brenda Mckinney RA, Gillinov AM, Gregoratos G, Hammill SC, Alexis ARANA, Enoch MARTINEZ, Elizabeth MARCOS, Page RL, Jessa FELIX, Jose MAYER, Augustus ROGER, [place] 2012 ACCF/AHA/HRS focused update incorporated into the ACCF/AHA/HRS 2008 guidelines for device-based therapy of cardiac rhythm abnormalities: a report of the [place] College of Cardiology Foundation/[place] Heart Association Task Force on Practice Guidelines and the Heart Rhythm Society. J Am Rudy Cardiol 2013;61:e6-75. Class I: DENTAL APPLIANCE FIXER is indicated for patients who have LVEF [...] and recommended that she become more active. Encounters Date Type Department Care Team Description 05/16/2024 Telephone [facility] Cardiology [address] 8th [place] [address] [place] [address] Caren Spain MD 05/01/2024 8:30 AM GAS MAKER Ancillary Procedure Heart Care Mobile [address] [facility] [address] [place] [id number] Chronic systolic heart failure (CMS/HCC) (HCC) 04/25/2024 11:05 AM GAS MAKER Lab [facility] [address] [place] [address] [address] Chronic systolic heart failure (CMS/HCC) (HCC) 04/25/2024 10:00 AM GAS MAKER Office Visit [facility] Cardiology [address] [facility] [address] [place] [id number] Caren Spain MD Chronic systolic heart failure (CMS/HCC) (HCC) (Primary Dx); PVC (premature ventricular contraction); LBBB (left bundle branch block); Primary osteoarthritis of both knees 03/26/2024 Orders Only [facility] Cardiology [address] [facility] [address] 8th [place] [address] [place] [address] Henrique Zuluaga MD from Last 3 Months Immunizations Name Administration Dates Next Due Influenza, Quadrivalent, Spl it, Preservative Free, Intramuscular 2018 Tdap 12/16/2018 Surgical History Surgery Date Site/Laterality Comments CHOLECYSTECTOMY Cholecystectomy NEPHRECTOMY Left Nephrectomy HYSTERECTOMY Hysterectomy TOTAL ABDOMINAL HYSTERECTOMY Hysterectomy, total INSERT / REPLACE / REMOVE PACEMAKER Medical History Medical History Date Comments Hx Other Medical Diverticulosis Hx Other Medical diverticulosis; Comments: [facility] 07/10/2014 - Hx Other Medical nephrectomy; Co mments: [facility] 07/10/2014 - Cardiomyopathy (HCC) Left bundle branch block Hyperlipidemia Arthritis Heart disease January 2009 Chronic kidney disease November 2011 Hypertension Family History Medical History Relation Name Comments Cancer Father Lucho Jyotsna Arthritis Mother Mother Cancer Mother Mother Stent Mother's Brother 2 Coronary Stent Placement; Heart disease Mother's Brother 3 Darin Zahida Anesthesia problems Neg Hx Relation Name Status Comments Father Lucho Rodriguezdredge Mother Mother Mother's Brother 1 Alive Mother's Brother 2 Mother's Brother 3 Darin Zahida Social History Tobacco Use Types Packs/Day Years [...] on file Legal Sex Female 4:02 PM GAS MAKER Gender Identity Female 02/13/2020 7:45 AM CDT Sexual Orientation Straight 02/13/2020 7: 45 AM CDT Obstetrics History Last Filed Vital Signs Vital Sign Reading Time Taken Comments Blood Pressure 127/91 04/25/2024 9:42 AM GAS MAKER Pulse 65 04/25/2024 10:35 AM GAS MAKER Temperature 36.6 ??C (97.9 ??F) 10/23/2023 6:40 AM CD T Respiratory Rate 17 10/23/2023 6:40 AM CDT Oxygen Saturation 98% 04/25/2024 9:42 AM GAS MAKER Inhaled Oxygen Concentration - - Weight 85.7 kg (189 lb) 04/25/2024 9:42 AM GAS MAKER Height 162.6 cm (5' 4 ) 04/25/2024 9:42 AM GAS MAKER Body Mass Index 32.44 04/25/2024 9:42 AM GAS MAKER Plan of Treatment Health Maintenance Due Date Last Done Comments Breast Cancer Screening-Mammogram 1955 Colon Cancer Screening-Colonoscopy 1955 Depression Screening 1955 Hepatitis C Screening 1955 Osteoporosis Screening-Bone Density Scan 1955 Pneumococcal vaccine 65+ (1 of 2 - PCV) 01/14/1962 Hepatitis B Screening 01/14/1974 Zoster Vaccine (1 of 2) 01/14/2006 Well Visit 65+ 01/14/2021 Influenza Vaccine (#1) 2023 2018 Fall Risk Assessment 10/22/2024 10/23/2023 DTaP/Tdap/Td Vaccine (2 - Td or Tdap) 12/16/2028 Medical Devices Implanted Type Area Network Security Officer Device Identifier Shelf Expiration Date Model / Serial / Lot Medtronic Inc [id number] Cardiac Jacumba Hf 2 Chamber Df4 Inline Cnctr Is4 - [id number] - [id number] Implanted:Qty: 1 on 03/03/2020 by True Ziegler MD at [facility] ICD Medtronic Inc [id number] 07/04/2021 DTP [id number] / [id number] 2S / Medtronic Cardiac Rhythm Mgmt [id number] Sprint Quattro Secure 62cm Tripolar Screw In Extendable - [id number] - [id number] Implanted:Qty: 1 on 03/03/2020 by True Ziegler MD at [facility] Lead Medtronic Inc [id number] 11/11/2021 [id number] / [id number] 5V / Medtronic Cardiac Rhythm Mgmt 5076-52 Capsurefix Novus 6.2fr 2mm 52cm Bipolar Screw In Implantable Latex Free - [id number] - [id number] Implanted:Qty: 1 on 03/03/2020 by True Ziegler MD at [facility] Lead Medtronic Inc [id number] 12/23/2021 507 6-52 / [id number] / Medtronic Inc [id number] Lead Attain Stability Quad Mri Surescan Lv 88mm - [id number] - [id number] Implanted:Qty: 1 on 03/03/2020 by True Ziegler MD at [facility] Lead Medtronic Inc [id number] 08/28/2021 [id number] 888 / [id number] 1V / [employer] Device Vascular Closure Femoral Artery Bioabsorbable Dual Method Vascade 6-7fr Collagen 847-559g-[id number] - [id number] - [id number] Implanted:Qty: 1 on 10/22/2023 by Henriqeu Zuluaga MD at [facility] Vascular Closure Device [employer] 07/24/2025 [id number] -[id number] / [id number] / [id number] [employer] Vascade Mvp 6-12fr Venous Closure [id number] - [id number] - [id number] Implanted:Qty: 1 on 10/22/2023 by Henrique Zuluaga MD at [facility] Vascular Closure Device [employer] 06/26/2025 [id number] -10U / [id number] / [id number] [employer] Vascade Mvp 6-12fr Venous Closure [id number] - [id number] - [id number] Implanted:Qty: 1 on 10/22/2023 by Henrique Zuluaag MD at [facility] Vascular Closure Device [employer] 06/26/2025 [id number] -[id number] / [id number] / [id number] Procedures Procedure Name Priority Date/Time Associated Diagnosis Comments TRANSTHORACIC ECHO (TTE) COMPLETE W DOPPLER/CF W CONTRAST Routine 05/01/2024 9:27 AM GAS MAKER Chronic systolic heart failure (CMS/HCC) (HCC) EGFR Routine 04/25/2024 11:11 AM GAS MAKER Chronic systolic heart failure (CMS/HCC) (HCC) COMPREHENSIVE METABOLIC PANEL Routine 04/25/2024 11:11 AM GAS MAKER Chronic systolic heart failure (CMS/HCC) (HCC) DEVICE CHECK - REMOTE Routine 03/26/2024 11:47 PM GAS MAKER from Last 3 Months Results * TRANSTHORACIC ECHO (TTE) COMPLETE W DOPPLER/CF W CONTRAST (05/01/2024 9:27 AM GAS MAKER) LV EF 55 % CARDIOREPORT Anatomical Region Laterality Modality Ultrasound 05/01/2024 8:30 AM GAS MAKER Narrative 05/01/2024 2:40 PM GAS MAKER Patient name: Jessy Mae Date of test: 05/01/2024 Type of test: TTE w/[facility] #: 0 Date of : 1955 (F) Explosion Welder: COTY Benton Referring Physician: CAREN SPAIN MD Contrast Agent: 0.4 ml Optison Administered, (2.6 ml wasted). Contrast Administered by: Kaykay Kenny RN Supervised/Interpreted by: Sebastian Colon MD Diagnosis: Location: [facility] Reason for test: Chronic Heart Failure MV [...] 2=Hypo 3=Akinetic 4=Dyskin./Aneurysm 0=Not visualized) Parasternal [place] Level:MAS=1 BAS=1 MIL=1 DAMON=1 Parasternal [place] Level:MAS=1 MIS=1 DE=1 MIL=1 MAL=1 MA=1 Apical 4 Chambers:=1 MIS=1 BIS=1 BAL=1 MAL=1 AL=1 AC=1 Apical 2 Chambers:AI=1 DE=1 BI=1 BA=1 MA=1 AA=1 AC=1 LV Global [...] MD By signing this report, the attending value analysis coordinator certifies that he or she has personally supervised and interpreted the echocardiogram and has reviewed and or edited and agrees with the written comments contained within the report. Procedure Note Sebastian Colon MD - 05/01/2024 Patient name: Jessy Mae Date of test: 05/01/2024 Type of test: TTE w/[facility] #: 0 Date of : 1955 (F) Explosion Welder: COTY Benton Referring Physician: CAREN SPAIN MD Contrast Agent: 0.4 ml Optison Administered, (2.6 ml wasted). Contrast Administered by: Kaykay Kenny RN Supervised/Interpreted by: Sebastian Colon MD Diagnosis: Location: [facility] Reason for test: Chronic Heart Failure MV [...] 2=Hypo 3=Akinetic 4=Dyskin./Aneurysm 0=Not visualized) Parasternal [place] Level:MAS=1 BAS=1 MIL=1 DAMON=1 Parasternal [place] Level:MAS=1 MIS=1 DE=1 MIL=1 MAL=1 MA=1 Apical 4 Chambers:=1 MIS=1 BIS=1 BAL=1 MAL=1 AL=1 AC=1 Apical 2 Chambers:AI=1 DE=1 BI=1 BA=1 MA=1 AA=1 AC=1 LV Global [...] MD By signing this report, the attending value analysis coordinator certifies that he or she has personally supervised and interpreted the echocardiogram and has reviewed and or edited and agrees with the written comments contained within the report. us Caren Spain MD CV ECHO PROCEDURES Final R esult * eGFR (04/25/2024 11:11 AM GAS MAKER) [facility] eGFR 70 >=60 mL/min/1. 73 m2 Comment: [...] reviewed 2021. Blood 04/25/2024 11:1 1 AM GAS MAKER 04/25/2024 12:02 PM GAS MAKER us Caren Spain MD LAB BLOOD ORDERABLES Final Result [facility] [address] [facility]. Department [place] [address] * Comprehensive metabolic panel (04/25/2024 11:11 AM GAS MAKER) Sodium 140 135 - 145 mmol/L Potassium, pl 4.5 3.3 - 4.9 mmol/L [facility] Chloride 103 97 - 110 mmol/L [facility] CO2 26 22 - 32 mmol/L [facility] Anion gap 11 2 - 15 mmol/L [facility] BUN 19 6 - 25 mg/dL [facility] Creatinine 0.90 0.60 - 1.10 mg/dL [facility] Glucose 102 70 - 199 mg/dL [facility] Comment: Interpretive Data Fasting glucose >/= 126 [...] classification and Diagnosis of Diabetes Diabetes Care 202; 46: S19-S40. Current interpretive data was last revised 2022. Calcium 9.8 8.5 - 10.3 mg/dL [facility] Bilirubin, total 1.0 0.1 - 1.2 mg/dL [facility] Protein, pl 7.1 6.5 - 8.5 g/dL [facility] Albumin 4.4 3.5 - 5.0 g/dL [facility] Alk phos 86 40 - 130 Units/L [facility] ALT 18 7 - 45 Units/L [facility]ICK SOLOMONW[facility] AST 19 10 - 45 Units/L [facility] Blood 04/25/2024 11:1 1 AM GAS MAKER 04/25/2024 12:02 PM GAS MAKER us Caren Spain MD LAB BLOOD ORDERABLES Final Result RICK BEASLEY [address] [facility]. Department [place] [address] * DEVICE CHECK - REMOTE (03/26/2024 11:47 PM GAS MAKER) Anatomical Region Laterality Modality Other 03/26/2024 11:4 7 PM GAS MAKER Narrative 04/02/2024 2:02 PM GAS MAKER Interpretation Summary: Battery and Leads (BL) Normal parameters noted on battery and lead(s) --- 7.1 yrs remaining longevity (implanted 2019). ?Lead impedance, sensing, and threshold trends stable and appropriate. ?? No short V-V intervals. Presenting Rhythm (MA) Atrial Sensing-Ventricular Pacing (-REWINDER OPERATOR) --- /REWINDER OPERATOR 77 to 85 bpm. Arrhythmic events (AE) [...] appropriate. No short V-V intervals. Presenting Rhythm (MA) Atrial Sensing-Ventricular Pacing (-REWINDER OPERATOR) --- /REWINDER OPERATOR 77 to 85 bpm. Arrhythmic events (AE) [...] Result from Last 3 Months Insurance MEDICARE [facility] MEDICARE [facility] MEDICARE [facility] MEDICARE AARP Advance Directives For more information, please contact: [phone] * Full Code (Latest Code Status on File) Date Activated Date Inactivated Comments 10/22/2023 4:46 PM 10/23/2023 3:25 PM Care Teams Cinder Pitman Relationship Specialty Start Date End Date Jazmine Lozano DO PCP - General Family Medicine 01/30/20
--- OUTSIDE RECORDS SUMMARY | 2024-05-19 14:38 | XMS_ITS | Data Portability ---
Author Organization [place] - [facility], Main Office Address [address] [place] [address] Care Team Providers Care Conservation Coordinator Name Role Phone SANTINO BLUM Primary Care Provider SANTINO BLUM Referring Provider [phone] Assessment Encounter Date Assessment Date Assessment LastModified by Organization Details LastModified Time 07/26/2022 07/26/2022 HPI: Patient returns. She is here for cortisone injections in both her knees. She has moderately severe osteoarthritis in the medial compartment of both knees. She does get good benefit from the injections. She wished to continue with injections. Physical exam: 67-year-old female alert pleasant. She has mild effusions of both knees. Range motion is from 0-130 degrees bilaterally. [id number]-fv-hwodrimp tenderness over both medial joint lines. ChloraPrep used on skin 20 mg Kenalog and 3 cc of 0.5% ropivacaine was injected into both knees. Risk of infection discussed. Impression: 67-year-old female who has moderately severe osteoarthritis of both knees. He continues get good relief from the injections. I will see her back in 3 months repeat injection. [email or web address] Not available 07/26/2022 16:20:56 11/03/2022 11/03/2022 HPI: Patient returns. She is here for cortisone injection in both her knees. Last shots for months ago. She does get good relief from the injections and wishes to continue with them. Physical exam: 67-year-old female alert pleasant. She walks well without limp her assistance. She has mild effusions in both knees. Range motion is from 0-135 bilaterally. Moderate tenderness over both medial joint lines to palpation. No swelling in either lower extremity. After ChloraPrep was used on skin 20 mg Kenalog and 3 cc of 0.5% ropivacaine was injected into both knees. Risk infection discussed. Impression: 67-year-old female who has severe medial compartment osteoarthritis in left knee and moderately severe medial compartment osteoarthritis in the right. She continues to get good benefit from the injections. I will see her back in 3 months repeat injection. Not available 11/03/2022 15:24:45 02/09/2023 02/09/2023 HPI: Patient returns. She is here for cortisone injection into both of her knees. Last shots were 3 months ago. She gets good benefit from the injections. She has severe medial compartment osteoarthritis in both knees. Physical exam: 68-year-old female alert. She walks well without limp or assistance. She has mild effusions in both knees. Range of motion is from 0-135 degrees bilaterally. Mild tenderness over both medial joint lines to palpation. There is no increased swelling in either lower extremity. After ChloraPrep was used on skin 20 mg Kenalog and 3 cc of 0.5% ropivacaine was injected into both knees. Impression: 68-year-old female who has severe medial compartment osteoarthritis in both knees. Shots continue to give her good relief. I will see her in 3 months. Not available 02/09/2023 15:55:07 05/16/2023 05/16/2023 HPI: Patient returns. She is here for cortisone injection into both of her knees. She has severe medial compartment osteoarthritis in both knees. Shots 3 months ago worked well for her and she wishes to continue with these. Physical exam: 68-year-old female alert pleasant. She has mild effusions in both knees. Range motion is from 0-135 degrees bilaterally. Mild tenderness over the medial joint line to palpation bilaterally. After ChloraPrep was used on skin 20 mg Kenalog and 3 cc of 0.5% ropivacaine was injected into both knees. Impression: 68-year-old female who has severe medial compartment osteoarthritis in both knees. Shots continue to give her good relief. We will see her in 3 months. Not available 05/17/2023 10:12:36 08/06/2023 08/06/2023 HPI: Patient returns. She is here for cortisone injections into both her knees. Last shots were 3 months ago. She gets good relief from the injections. She is severe medial compartment osteoarthritis in both knees. Physical exam: 68-year-old female alert pleasant. She has mild effusions in both knees. Range motion is from 0-135 degrees bilaterally. Mild tenderness over the medial joint lines to palpation. After alcohol prep 20 mg Kenalog and 3 cc of 0.5% ropivacaine was injected into both knees. Impression: 68-year-old female who has severe medial compartment osteoarthritis in both knees. Shots continue give her good relief. I will see her in 3 months. [email or web address] Not available 08/06/2023 16:03:28 Plan of Treatment Reminders Order Date Submit Date Provider Last Modified By Organization Details Last Modified Time Details Appointments None recorded. Lab None recorded. Referral None recorded. Procedures injection/a spiration joint/bursa (PROC) - in office procedure, administere d by provider 2022 023 [email or web address] In-Office Order, Internal Use Only DO Not Attach Compendium DO Not Attach Compendium, Do Not Delete/merge, [id number] 15:05:06 injection/a spiration joint/bursa (PROC) - in office procedure, administere d by provider 2022 023 [email or web address] In-Office Order, Internal Use Only DO Not Attach Compendium DO Not Attach Compendium, Do Not Delete/merge, [id number] 11:28:43 injection/a spiration joint/bursa (PROC) - in office procedure, administere d by provider 2022 023 In-Office Order, Internal Use Only DO Not Attach Compendium DO Not Attach Compendium, Do Not Delete/merge, [id number] 3 14:27:46 injection/a spiration joint/bursa (PROC) - in office procedure, administere d by provider 2023 024 [email or web address] In-Office Order, Internal Use Only DO Not Attach Compendium DO Not Attach Compendium, Do Not Delete/merge, [id number] 4 15:15:34 injection/a spiration joint/bursa (PROC) - in office procedure, administere d by provider 2023 024 [email or web address] In-Office Order, Internal Use Only DO Not Attach Compendium DO Not Attach Compendium, Do Not Delete/merge, [id number] 4 15:44:46 Surgeries None recorded. Imaging XR, knee 2022 023 [email or web address] [facility], [address], [place], [address], 16:22:06 Medication Orders Kenalog 10 mg/mL suspension for injection 2022 023 [facility]05, [address] [facility], [place], [place], [id number], 16:39:35 ropivacaine (PF) 5 mg/mL (0.5 %) injection solution 2022 023 [facility] #65713, [address], [place], [place], [id number], 14:25:52 Kenalog 10 mg/mL suspension for injection 2022 023 [facility] #91377, [address], [place], [place], [id number], 15:20:01 ropivacaine (PF) 5 mg/mL (0.5 %) injection solution 2022 023 [email or web address]212[facility], [address], [place], [place], [id number], 14:25:52 Kenalog 10 mg/mL suspension for injection 2022 023 [facility] #51564, [address], [place], [place], [id number], 15:53:58 ropivacaine (PF) 5 mg/mL (0.5 %) injection solution [address] [facility] [address] [facility]19462, [address] [facility], [place], [place], [id number], 3 15:53:58 Kenalog 10 mg/mL suspension for injection [address] [facility] #01788, [address], [place], [place], [id number], 4 15:36:20 ropivacaine (PF) 5 mg/mL (0.5 %) injection solution [address] [facility] #49479, [address] [facility], [place], [place], [id number], 4 15:36:20 Kenalog 10 mg/mL suspension for injection [address] [facility] #66873, [address] [facility], [place], [place], [id number], 4 16:04:57 Marcaine (PF) 0.5 % (5 mg/mL) injection solution [address] [facility] #68546, [address] [facility], [place], [place], [id number], 4 16:04:57 Patient TargetsNo targets recorded. Patient InstructionsNo instructions recorded. Reason for Referral None Reported. Results Created Date Observation Date Name Description Value Unit Range Abnormal Flag Note LastModifiedBy Organization Detail LastModifiedTime 11/04/19 23 XR, knee No observ ation record ed. [facility] [place] [address], [place], [address], 11/03/2022 15:23:46 Result Notes None recorded. Problems Name Problem SNOMED Code Status Onset Date Resolution Date Notes Provider Name and Address Organization Details Recorded Time Bilateral osteoarthr itis of knees 6129999204830 07 Active 2022 Sydney Michael, CHARLIE null, [place] - [facility] 3 15:03:35 Osteoarthr itis of knee 904910266 Active Not Available [facility] 3 04:53:00 Osteoarthr itis 494587544 Active Not Available [facility] 3 04:53:00 Problem Notes None recorded. Procedures Surgical History Date Name Laterality Status Provider Name and Address Organization Details Recorded Time Gallbladder Surgery completed Not Available [facility] 06/21/2022 04:43:40 Hysterectomy completed Not Available [facility] 06/21/2022 04:43:40 kidney excision completed Not Available [facility] 06/21/2022 04:43:40 Imaging Results Imaging Date Name Status LastModified by Organiz ation Details LastModified Time 11/03/2022 XR, knee completed [facility] [place] [address], [place], [address], 11/03/2022 15:23:46 Procedure Notes None recorded. Medical Equipment None Reported. Allergies No known drug allergies Medications Name Sig Start Date Stop Date Status Note LastModified by Organization Details LastModified Time carvedilol 25 mg tablet TK 1 T PO BID active Not Available Not Available No t Available atorvastati n 10 mg tablet TAKE 1 TABLET BY MOUTH DAILY active Not Available Not Available No t Available azithromyci n 250 mg tablet 02/09 completed Not Available Not Available Not Available amiodarone 200 mg tablet active Not Available Not Available Not Available benzonatate 200 mg capsule 12/31 completed Not Available Not Available Not Available bupivacaine HCl 0.5 % (5 mg/mL) injection solution In office injection administe red by the provider 01/06 completed Not Available Not Available Not Available spironolact one 25 mg tablet active Not Available Not Available Not Available Kenalog 10 mg/mL suspension for injection Take 4 mL by injection route. 2023 active ND: 0003- 0494- 20 Not Available Not Available Not Available benzonatate 100 mg capsule TAKE 1 CAPSULE BY MOUTH THREE TIMES DAILY NEEDED FOR COUGH 02/09 completed Not Available Not Available Not Available cephalexin 500 mg capsule TK ONE C PO QID TAT active Not Available Not Available No t Available erythromyci n 5 mg/gram (0.5 %) eye ointment APPLY 1/2 INCH IN EACH EYE 6 TIMES PER DAY active Not Available Not Available No t Available ramipril 2.5 mg capsule TK ONE C PO QD 02/09 completed Not Available Not Available Not Available bumetanide 1 mg tablet TK 1 T PO QD 02/09 completed Not Available Not Available Not Available methylpredn isolone 4 mg tablets in a dose pack FOLLOW PACKAGE DIRECTION S 02/09 completed Not Available Not Available Not Available fluticasone propionate 50 mcg/actuati on nasal spray,suspe nsion SHAKE LIQUID AND USE 1 SPRAY IN EACH NOSTRIL TWICE DAILY 02/09 completed Not Available Not Available Not Available ramipril 5 mg capsule 02/09 completed Not Available Not Available Not Available ramipril 10 mg capsule active Not Available Not Available N ot Available Marcaine (PF) 0.5 % (5 mg/mL) injection solution Take 6 mL by injection route. 2023 active Not Available Not Available Not Avai lable nitrofurant oin monohydrate /macrocryst als 100 mg capsule 01/08 completed Not Available Not Available Not Available Fish Oil 2018 active Not Available Not Available Not Avai lable iron 2019 active Not Available Not Available Not Avai lable Centrum Silver 2019 active Not Available Not Available Not Avai lable B-12 2019 active Not Available Not Available Not Avai lable lidocaine (PF) 10 mg/mL (1 %) injection solution In office injection administe red by the provider 01/06 completed [facility]: [phone]- [phone] Not Available Not Available Not Available lidocaine (PF) 5 mg/mL (0.5 %) injection solution In office injection administe red by the provider 01/06 completed Not Available Not Available Not Available Caltrate 600-D Plus Minerals 2019 active Not Available Not Available Not Avai lable Vitamin D3 50 mcg (2,000 unit) tablet Take 1 tablet by oral route. 06/07 completed Not Available Not Available Not Available Calcium 500 + D (D3) 06/07 completed Not Available Not Available Not Available GaviLyte-G 236 gram-22.74 gram-6.74 gram-5.86 gram oral solution 01/06 completed Not Available Not Available Not Available ropivacaine (PF) 5 mg/mL (0.5 %) injection solution Take 30 mg by injection route. 2023 active [facility] 24089 -064- 01 Not Available Not Available Not Available Entresto 49 mg-51 mg tablet active Not Available Not Available Not Available BinaxNOW COVID-19 Ag Self Test kit TEST DIRECTED TODAY 02/09 completed Not Available Not Available Not Available Vitals Date Recorded Body height Provider Name an d Address Organization Details Last Updated DateTime 07/26/2022 162.56 cm Sydney Rodriguez [facility] [employer] [facility] 07/26/2022 15:11:28 Date Recorded Body height Provider Name an d Address Organization Details Last Updated DateTime 11/03/2022 162.56 cm Sydney Rodriguez [facility] [employer] [facility] 11/03/2022 14:40:45 Date Recorded Body height Body mass index (BMI) Body weight Provider Name and Address Organization Details Last Updated DateTime 02/09/2023 160.02 cm 34.5 kg/m2 43733.51 g Sydney Rodriguez [facility] [employer] [facility] 02/09/2023 14:32:51 Date Recorded Body height Provider Name an d Address Organization Details Last Updated DateTime 05/16/2023 160.02 cm Trisha Franciss [facility] [employer] [facility] 05/16/2023 15:13:53 Date Recorded Body height Provider Name an d Address Organization Details Last Updated DateTime 08/06/2023 160.02 cm Lesley Jerrica [facility] [employer] [facility] 08/06/2023 15:36:10 Social History Question Answer Notes LastModified by Organizat ion Details LastModified Time Tobacco Smoking Status Never Smoker Niesha gatica, [facility] [employer] [facility] 05/16/2023 14:56:04 What Is Your Level Of Alcohol Consumption? Occasional [id number] Information not available 06/21/2022 Sex: Unknown Functional Status None recorded. Mental Status None recorded. Family History Relationship Description Onset Age of this Age Resolved Age Notes LastModified by Organization Details LastModified Time Unspecified Relation Heart disease [id number] Not available 06/21/2022 04:43:48 Unspecified Relation Hypertensive disorder [id number] Not available 06/21/2022 04:43:48 Unspecified Relation Family history of malignant neoplasm Not available 05/16 14:56:04 Medical History Condition Response BLINDNESS N KIDNEY STONES N MRSA N CARPAL TUNNEL SYNDROME N LUNG DISEASE/DISORDER N HISTORY OF DRUG ABUSE N RADIATION / CHEMOTHERAPY N COPD N SPORTS INJURY N ANKLE PAIN N BLOOD DISEASES N SCHIZOPHRENIA N SHINGLES N SHOULDER PAIN N BOWEL PROBLEMS N DEPRESSION (INCLUDING POST ) N STROKE/TIA N ULCERS N KNEE PAIN N BENIGN PROSTATIC HYPERPLASIA N OBESITY N GERD/NAUSEA N ANEURYSM N URINARY/BLADDER/KIDNEY PROBLEMS N CORONARY ARTERY DISEASE (CAD) N ADDICTION CONCERNS N USE OF BLOOD THINNERS N SKIN PROBLEMS N EMPHYSEMA N MUSCLE,JOINT OR BONE PROBLEMS N DVT N STOMACH ULCERS N BLOOD CLOTS N USE OF NSAIDS N CONCUSSION OR SPINAL TRAUMA N NEUROPATHY N AIDS/HIV N FRACTURES N HYPERTENSION N ELBOW PAIN N TOURETTE'S N Metal allergy N ANXIETY DISORDER N BLOOD TRANSFUSION N ANEMIA/BLOOD DISORDER N BIPOLAR DISORDER N BRONCHITIS N OSTEOARTHRITIS N TUBERCULOSIS N FOOT PROBLEM N HEART VALVE DISORDERS N ALLERGIES/HAYFEVER N SOFT TISSUE INJURY N INFECTIOUS DISEASE N HEART ARRHYTHMIA N INSOMNIA N HIGH CHOLESTEROL / HYPERLIPIDEMIA N RHEUMATOID ARTHRITIS N EDEMA N CHRONIC PAIN SYNDROME N CAROTID BLOCKAGE N BACK / NECK PROBLEMS N HAVE YOU BEEN HOSPITALIZED OR SEEN IN [facility] IN THE PAST YEAR ? N BURSITIS N HERNIATED DISC N DIALYSIS N FIBROMYALGIA N OSTEOPOROSIS N ARTHRITIS Y NO SIGNIFICANT PAST MEDICAL HISTORY N PERIPHERAL NEUROPATHY N DIABETES, TYPE N HEARTBURN / REFLUX N HEPATITIS / LIVER DISEASE N GOUT N ALZHEIMER'S DISEASE N SLEEP DISORDER N HERPES N HEADACHES/MIGRAINES N SEIZURES/EPILEPSY N VASCULAR DISEASE N Blood Disorder N HIP PAIN N DIZZINESS N HEAD TRAUMA OR INJURY N HEART DISEASE/HEART PROBLEMS Y MULTIPLE SCLEROSIS N CANCER: SPECIFY N CARDIAC ARRHYTHMIA N ANESTHESIA COMPLICATIONS N ATRIAL FIBRILLATION N AUTOIMMUNE DISEASE N Gynecological HistoryNo gynecological history recorded. Obstetrics History GPAL:G 0 P 0 0 0 0 Past Encounters Encounter ID Performer Location Encounter Start Date Encounter Closed Date Diagnosis/Indication Diagnosis SNOMED-CT Code Diagnosis ICD10 Code Diagnosis Note [id number] [facility] [place] [address] [place] [address] 09/17/2020 00:00:00 09/17/2020 16:29:15 [id number] [facility] [place] [address] [place] [address] 12/24/2020 00:00:00 12/24/2020 10:52:32 [id number] [facility] [place] [address] [place] [address] 03/23/2021 00:00:00 03/23/2021 11:53:37 [id number] [facility] [place] [address] [place] [address] 06/29/2021 00:00:00 06/29/2021 16:05:12 [id number] [facility] [place] [address] [place] [address] 10/05/2021 00:00:00 10/05/2021 12:17:30 [id number] [facility] [place] [address] [place] [address] 01/06/2022 00:00:00 01/06/2022 15:55:38 [id number] [facility] [place] [address] [place] [address] 04/07/2022 00:00:00 04/07/2022 14:49:23 [id number] NANCI Wade [facility] [place] [address] [place] [address] 07/26/2022 14:57:06 07/26/2022 17:05:08 Bilateral osteoarthritis of knees 6939568188 55771 M17.0 [id number] NANCI Wade [facility] [place] [address] [place] [address] 11/03/2022 14:33:06 11/03/2022 16:22:05 Bilateral osteoarthritis of knees 2653022072 08033 M17.0 [id number] NANCI Wade [facility] [place] [address] [place] [address] 02/09/2023 14:04:56 02/09/2023 15:55:55 Bilateral osteoarthritis of knees 7681794011 12577 M17.0 [id number] NANCI Wade [facility] [place] [address] [place] [address] 05/16/2023 14:43:46 05/17/2023 13:48:12 Bilateral osteoarthritis of knees 0313374700 40020 M17.0 Osteoarthr itis of knee 948878138 M17.9 Osteoarthritis 012639039 M17.0 [id number] NANCI Wade [facility] [place] [address] [place] [address] 08/06/2023 15:19:36 08/06/2023 16:28:42 Bilateral osteoarthritis of knees 9339699741 03970 M17.0 Health Concerns Section Related Observation LastModified by Organization Detai ls LastModified Time None Recorded Concern Status LastModified by Organization Details LastModified Time None Recorded Advance Directives Directive None Recorded Payers Encounter Date Sequence Insurance Name Policy Number Policy Marion Covered Member ID Marion Member ID Guarantor Name 07/26/2022 1 [place] Jessy Mae [id number] Jessy Mae 07/26/2022 2 [employer] (MEDICARE SUPPLEMENT) Jessy Mae [id number] Jessy Mae 11/03/2022 1 [place] Mae [id number] Jessy Mae 11/03/2022 2 [employer] (MEDICARE SUPPLEMENT) Jessy Mae [id number] Jessy Mae 02/09/2023 1 [place] [id number] Jessy Mae 02/09/2023 2 [employer] (MEDICARE SUPPLEMENT) Jessy Mae [id number] Jessy Mae 05/16/2023 1 [place] Mae [id number] Jessy Mae 05/16/2023 2 [facility] (MEDICARE SUPPLEMENT) Jessy Mae [id number] Jessy Mae 08/06/2023 1 [place] Jessy Mae [id number] Jessy Mae 08/06/2023 2 [facility] [employer] (MEDICARE SUPPLEMENT) Jessy Mae [id number] Jessy Mae OBGyn Episode No OBEpisode recorded.
--- NOTE | 2024-05-19 15:10 | ECG_ITS ---
Test Date: 2024-05-19 15:18:55 Measurements Intervals [place] Rate: 67 P: 43 VA: 166 QRS: 260 QRSD: 107 T: 50 QT: 399 QTc: 424 Interpretive Statements ELECTRONIC VENTRICULAR PACEMAKER ABNORMAL RHYTHM ECG No previous ECG available for comparison Electronically Signed On 05-19-2024 21:11:58 [employer]TEGRATION DEVELOPER by Nii Chan M.D.
[2024-05-19 15:31] LABS: Basophils Percent Auto 0.5 % (0.2-1.2); Eosinophils Absolute Auto 0.2 K/mm3 (0-0.3); Eosinophils Percent Auto 3.5 % (0-4.4); Hematocrit 41.9 % (37.0-47.0); Hemoglobin 13.7 g/dL (12.0-15.0); Immature Granulocyte Absolute 0.03 K/mm3 (0.00-0.031); Immature Granulocyte Percent A 0.5 % (0-0.5); Lymphocytes Absolute Auto 1.88 K/mm3 (0.9-3.2); Lymphocytes Percent Auto 28.4 % (18.3-44.2); Mean Corpuscular HGB Conc 32.7 g/dl (32-36); Mean Corpuscular Hemoglobin 31.6 pg (26-34); Mean Corpuscular Volume 96.8 fl (80-100); Mean Platelet Volume 10.4 fl (7.4-10.4); Monocytes Absolute Auto 0.8 K/mm3 (0.1-0.6); Monocytes Percent Auto 11.3 % (2.6-8.5); Neutrophils Absolute Auto 3.7 K/mm3 (1.3-6.7); Neutrophils Percent Auto 55.8 % (45.5-73.1); Platelet Count Result 205 k/mm3 (150-375); Red Blood Count 4.33 M/mm3 (4.2-5.4); Red Cell Distribution Width 12.5 % (11.5-14.5); White Blood Count 6.6 K/mm3 (4.5-10.0)
[2024-05-19 15:46] LABS: Urine Cotinine NEGATIVE
[2024-05-19 15:57] LABS: Hemoglobin A1C 5.6 % (<5.7)
[2024-05-19 16:00] LABS: Albumin Level 4.2 g/dL (3.5-5.1); Anion Gap 10 mmol/L (4-12); Blood Urea Nitrogen 24 mg/dL (7-17); Calcium 9.1 mg/dL (8.4-10.2); Carbon Dioxide 25 mmol/L (22-30); Chloride 104 mmol/L (98-107); Estimated Glomerular Filt Rate 59; Glucose 85 mg/dL (65-110); Potassium 4.1 mmol/L (3.4-5.0); Sodium 139 mmol/L (137-145)
== END 2024-05-19 13:47 | disposition home or self-care (01) ==
LOC: ANHSURGERY 13:53
PROVIDERS: PCP Family Medicine; Visit Provider Orthopaedic Surgery
DX: M17.0 Bilateral primary osteoarthritis of knee (principal); Z01.818 Encounter for other preprocedural examination; Z95.0 Presence of cardiac pacemaker; R94.31 Abnormal electrocardiogram [ECG] [EKG]
CPT/HCPCS: 80048; 80307; 82040; 83036; 85025; 87081; 93005

== ENCOUNTER 2024-06-09 01:23 | Day surgery (SDC) | payer MEDICARE, SELFPAY ==
--- NOTE | 2024-05-19 13:52 | PC.NURSE ---
Report to the Outpatient Waiting Room, entrance under the green pavilion located off [facility], at time _6 AM on date _06/09/24 . Planned Procedure Time: __7:30 AM .? Time changes happen often and if your time is changed the preop area will call you the afternoon before. - You and your visitor will be asked to self-screen and do not enter if you have any COVID symptoms. Please call surgeon if you need to reschedule. - A mask is optional within the hospital at this time. Patients may have clear liquids (water, carbonated beverages, clear teas, apple juice) until 3 hours prior to surgery( 4:30 AM) with a maximum of 20 ounces. - No food from midnight until time of surgery and no smoking. This includes no chewing gum, candy or mints. Take only the following medications with a SIP of water on the morning of surgery: __CARVEDILOL DO NOT STOP ANY OF YOUR OTHER PRESCRIPTION MEDICATIONS PRIOR TO SURGERY EXCEPT THE FOLLOWING Medications to discontinue per physician NONE Please no make-up, nail kiswahili, hairspray, perfume, deodorant, or body powder the day of surgery.? No jewelry (including any body piercings) or valuables the day of surgery, leave them at home.? Please take a shower or bath the night before, or the morning of, surgery with an antibacterial soap.? Wear comfortable, loose fitting clothing.? Children are encouraged to wear pajamas. - Jewelry must be removed prior to entering the operating room.? Rings and piercings that are not removed may be cut off. - The hospital will not accept responsibility for valuables.? - Please leave all valuables, including medications, at home the day of surgery. If you are going home after surgery, a licensed bus driver must drive you home.? - NO public transportation without another adult if you receive anesthesia. - We recommend that an adult stay with you for 24 hours following discharge. - We also recommend that you do not drive, make important decision, drink alcoholic beverages, or take any drugs that were not prescribed by your health care provider for at least 24 hours after your discharge time. Hold all vitamins and supplements for __3____ days per __ANESTHESIA LAST DOSE 06/05/24 . Follow any additional instructions given to you from your surgeon. VERBAL AND WRITTEN instructions given to _PATIENT and asked if any additional questions and then verbalized understanding. Patient advised to call surgeon office or pre surgery nurse liaison [phone] if any additional questions.
[2024-05-19 13:59] VITALS: BMI 33.9
[2024-05-19 14:51] VITALS: BP 119/64; PULSE 70; RESP 18; TEMP 36.6; O2SAT 97
--- NOTE | 2024-06-06 09:21 | P.HP_ITS ---
H&P: HPI History of Present Illness Date/Time: 06/06/24 09:21 Chief Complaint: Bilateral knee DJD Narrative: 69-year-old female who presents today for left total knee arthroplasty and cortisone injection the right knee. Patient has been having symptoms in both knees for years. She has been treating this nonsurgically with cortisone injections every 3 months. She is getting less improvement from the injections. Last injections were almost 4 months ago. She has been taking aspirin on a fairly regular basis. She avoids anti-inflammatories. She has had a history of nephrectomy. Patient has advanced medial compartment osteoarthritis in both knees. She feels this point she is ready proceed with total knee arthroplasty on the left. She would like to have a cortisone injection the right knee to help with her symptoms in the right knee while she is recovering from the left. Review of Systems Review of Systems: All systems reviewed & are unremarkable except as noted in HPI and below PMFSH Past Medical History Medical History Cardiac defibrillator in place (~02/22/20) Cardiomyopathy Family history of colon cancer in mother Hepatitis C antibody test negative (12/04/16) HTN (hypertension) Hyperlipidemia Obesity Pacemaker Surgical History Surgical History H/O cardiac radiofrequency ablation H/O: hysterectomy (~03/01/12) BRYON/BSO History of cardiac radiofrequency ablation (RFA) History of nephrectomy, left (~2011) Hx of cholecystectomy (~1980) Family History Family History Mother Hypertension Family history of elevated blood lipids Family history of neuropathy Sibling Hypertension Grandparent Family history of lung cancer Father Family history of lung cancer, Onset Age: 71 Other Family history of cardiovascular disease No family history of cardiovascular disease Social History Social History (Updated 03/24/24 @ 13:21 by Jessica Cerna CMA) Smoking status: Never smoker Second hand tobacco smoke exposure: Yes Additional smoking assessment comments: DENIES ANY FORM OF TOBACCO USE Alcohol intake: current Alcohol use details: 2 DRINKS PER MONTH Substance use: never Substance use type: does not use Do You Feel Safe in your Home?: Yes Lack of Transportation: No Lack of Food: Never True Current Housing: I Have Housing Concerned About Future Housing: No Difficulty Paying Gas/Electric Bills: No Difficulty Paying for Meds: No Currently Unemployed: No Education: High School Diploma/GED Difficulty w/ Childcare or Family Care: No Living arrangements: with family Additional living arrangements comments: Occupation/Education: retired 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 Gender identity (if verbalized by the patient): Female Spiritual care concerns: No Agree to blood products: Yes Meds Home Medications and Allergies Home Medications ?Medication ?Instructions ?Recorded ?Confirmed ?Type carvedilol 25 mg tablet (Coreg) 25 mg PO Q12H 05/02/19 05/19/24 History cholecalciferol (vitamin D3) 50 2,000 unit PO DAILY 05/02/19 05/19/24 History mcg (2,000 unit) tablet calcium 500 mg (as 1 tablet PO DAILY 06/10/19 05/19/24 History carbonate)-vitamin D3 5 mcg (200 unit) tablet (Calcium 500 + D) ferrous sulfate 27 mg iron tablet 27 mg PO DAILY 06/10/19 05/19/24 History judjdutj-ipc-kmgsj acid 0.4 1 tablet PO DAILY 06/10/19 05/19/24 History mg-lycopene 300 mcg-lutein 250 mcg tablet (Centrum Silver) omega 3-xbd-ztt-fish oil 1,000 mg 1 cap PO DAILY 06/10/19 05/19/24 History (120 mg-180 mg) capsule (Fish Oil) vitamin B complex (B 1 tablet PO DAILY 06/10/19 05/19/24 History Complex-Vitamin B12 tablet) sacubitril 24 mg-valsartan 26 mg tablet 02/27/23 03/25/24 History tablet (Entresto) spironolactone 25 mg tablet 25 mg PO DAILY 11/06/23 05/19/24 History dapagliflozin propanediol 5 mg 5 mg PO DAILY 02/06/24 05/19/24 History tablet (Farxiga) atorvastatin 10 mg tablet See Rx Instructions .Route 03/19/24 05/19/24 Rx .COMPLEX #90 tabs acetaminophen 500 mg tablet 1,000 mg PO Q6H PRN pain 05/19/24 05/19/24 History (Acetaminophen Extra Strength) dapagliflozin propanediol 10 mg 10 mg PO DAILY 05/19/24 05/19/24 History tablet (Farxiga) sacubitril 49 mg-valsartan 51 mg 1 tablet PO BID 05/19/24 05/19/24 History tablet (Entresto) Allergies Allergy/AdvReac Type Severity Reaction Status Date / Time No Known Allergies Allergy Mild Verified 05/19/24 14:00 Exam Narrative: 69-year-old female alert pleasant. She is 5 ft 3 and 191 lb BMI is 33.3. Left knee has trace effusion. Moderate medial pseudolaxity to valgus stress. Moderate medial joint line tenderness. Range of motion is from 3-140 degrees. Hip range of motion is full without discomfort, negative Stinchfield maneuver. 2+ dorsalis pedis pulse palpable. Normal sensation to the left lower extremity. No edema in either lower extremity. Normal quad strength. Resp: Auscultation: clear to auscultation bilaterally Cardio: Rate: regular rate Rhythm: regular rhythm Assessment and Plan Assessment and plan (1) Bilateral primary osteoarthritis of knee: Code(s): M17.0 - Bilateral primary osteoarthritis of knee Status: Acute Plan 69-year-old female who has severe medial compartment osteoarthritis in both knees. At this point left knee is more symptomatic than the right. She does not feel that nonsurgical treatment is working well for her. She would like to proceed with total knee arthroplasty at this point. Surgical procedures well as risks and complications were discussed in detail all questions were answered we will proceed. Patient will see her primary care doctor for pre-surgical clearance. She has seen her flour broker at [facility]. She had her recent echo which showed ejection fraction 55%. Normal left ventricular function. She has been cleared from a cardiac standpoint. Patient's nasal swab was negative. Hemoglobin 13.7 platelets are 205. Creatinine 0.94 GFR was 59.
[2024-06-09] VITALS (15 sets, daily range): BP systolic 98–139; BP diastolic 54–82; PULSE 60–82; RESP 13–22; TEMP 36.1–36.6; O2SAT 92–100; BMI 33.9
--- NOTE | ~2024-06-09 | XR_ITS ---
EXAMINATION: [id number] DATE: 06/09/2024 10:59 INDICATION: Postoperative evaluation following knee arthroplasty. TECHNIQUE: Anteroposterior and lateral views of the left knee were obtained. COMPARISON: None. FINDINGS: Left total knee arthroplasty without patellar resurfacing appears well seated and in near anatomic al ignment. No fractures identified. Expected postoperative subcutaneous and intra-articular gas. IMPRESSION: 1. Left total knee arthroplasty, negative for postoperative purposes. Reviewed, dictated and finalized at location A. TELLER
--- OUTSIDE RECORDS SUMMARY | 2024-06-09 01:28 | XMS_ITS | Encounter Summary ---
Author Organization [facility] Address [address] [place] [address] Phone Care Team Providers Care Fiber Drier Operator Name Role Phone Jazmine Lozano Primary Care Provider [phone]- [phone] Encounter Details Date Type Department Care Team (Late st Contact Info) Description 05/16/2024 Telephone [facility] Cardiology [address] Advanced [facility] [address] [place] [address] [place] [address] Caren Louis MD [address] [place] [address] Social History Tobacco Use Types [...] on file Legal Sex Female 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 Confirmed SHOVELER * Telephone Encounter - Jennifer King - 05/16/2024 2:47 PM CST [facility] in [place] calling stating pt is having knee replacement with them in May and they need the following faxed to them at [phone] Office notes from 04/25/24 Tracing of EKG from 04/25/24 And echo 05/01/24 SHOVELER documented in this encounter Plan of Treatment Not on file documented as of this encounter Visit Diagnoses Not on filedocumented in this encounter Care Teams Fiber Drier Operator Relationship Specialty Start Date End Date Jazmine Lozano DO PCP - General Family Medicine 01/30/20 documented as of this encounter
--- OUTSIDE RECORDS SUMMARY | 2024-06-09 01:28 | XMS_ITS | Referral Summary ---
Author Organization [facility] D Address [address] [place] [address] Care Team Providers Care Step Down Nurse Name Role Phone Jazmine Lozaon Primary Care Provider +1- [phone] Encounters Date Type Department Care Team Description 05/26/2024 Telephone [facility] [address] [facility] [address]th [place] [address] [place] [address] Jenna Armstrong 05/26/2024 Telephone [facility] [address] [facility] 8th [place] [address] [place] [address] Caren Spain MD 05/23/2024 Telephone [facility] [address] [facility] 8th [place] [address] [place] [address] Henrique Zuluaga MD 05/22/2024 Orders Only [facility] Transplant Heart [address] [facility] [address] Mailstop [phone] [place] [address] Mary Pulido RN Chronic systolic heart failure (CMS/HCC) (HCC) (Primary Dx) 05/22/2024 9:49 AM FAMILY RESOURCE MANAGEMENT SPECIALIST - 05/22/2024 11:59 PM FAMILY RESOURCE MANAGEMENT SPECIALIST Hospital Encounter [facility] [address] [place] [address] Caren Spain MD Chronic systolic heart failure (CMS/HCC) (HCC) Discharge Disposition: Discharge to home or self care 05/16/2024 Telephone [facility] [address] [facility] 8th [place] [address] [place] [address] Caren Spain MD 05/01/2024 8:30 AM FAMILY RESOURCE MANAGEMENT SPECIALIST Ancillary Procedure [facility] [address] [place] [address] 3 [address] [place] [address] Chronic systolic heart failure (CMS/HCC) (HCC) 04/25/2024 11:05 AM FAMILY RESOURCE MANAGEMENT SPECIALIST Lab [facility] [address] [place] [address] Chronic systolic heart failure (CMS/HCC) (HCC) 04/25/2024 10:00 AM FAMILY RESOURCE MANAGEMENT SPECIALIST Office Visit [facility] [address] [place] [address] Caren Spain MD Chronic systolic heart failure (CMS/HCC) ([facility]) (Primary Dx); PVC (premature ventricular contraction); LBBB (left bundle branch block); Primary osteoarthritis of both knees 03/26/2024 Orders Only [facility] [address] [facility] 8th [place] [address] [place] [address] Henrique Zuluaga MD from Last 3 Months Allergies No known active allergies Medications calcium carbonate-vitami n D3 (CALCIUM 600 + D,3,) 600 mg calcium- 200 unit capsule 0 0 5 Active multivitamin tablet tablet take 1 tablet by oral route every day with food 0 0 5 Active djwdn-3p-gmx-epa -fish oil (OMEGA 3) 350-400 mg capsule [...] tablet (10 mg total) by mouth daily 21 tablet 5 Active dapagliflozin propanediol (FARXIGA) 10 mg tablet Take 1 tablet (10 mg total) by mouth daily for 14 days 14 tablet 4 05/13/19 25 Discontinu ed(Patient Reported) dapagliflozin propanediol (FARXIGA) 10 mg tablet Take 1 tablet (10 mg total) by mouth daily 14 tablet 5 05/22/19 25 Discontinu ed(Reorder ) Hospital, Clinic, or Other Facility Administered Medication Ordered Dose Route Frequency Start Date End Date Status perflutren protein-a (OPTISON) 3 mL in sodium chloride 0.9% 8 mL syringe 1 - 8 mL IV Once in imaging 12/19/2023 Active Active Problems Problem Noted Date Diagnosed Date [...] statin Assessment & Plan (03/01/2022 2:46 PM FAMILY RESOURCE MANAGEMENT SPECIALIST): Well controlled with an LDL of [...] Presence of cardiac resynchr onization therapy defibrillator (WATCH TECHNICIAN-D) 03/04/2020 Overview (03/04/2020): Medtronic Lufkin HF QUAD WATCH TECHNICIAN-D implanted on 03/03/20 for NICM/CHF/LBBB. Toney/Victor Manuel Membreno Assessment & Plan (02/25/2021 11:45 AM CDT): Monitored through the arrhythmia Center. Assessment & Plan (09/10/2020 8:20 AM CDT): Followed through Dr. Ziegler. Chronic systolic heart failure ([facility]) 020 Assessment & Plan (02/25/2021 11:43 AM [...] meds Assessment & Plan (03/01/2022 2:45 PM FAMILY RESOURCE MANAGEMENT SPECIALIST): With restored LV function. Continue Altace [...] Altace. 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 LV ejection [...] cardiac rhythm abnormalities: a report of the [place] College of Cardiology/[place] Heart Association Task Force on Practice Guidelines [...] Brenda Mckinney RA, Gillinov AM, Gregoratos G, Jeremy GONZALEZ, Alexis ARANA, Enoch MARTINEZ, Elizabeth MARCOS, Page RL, Jessa FELIX, Jose MAYER, Augustus ROGER, [place] 2012 ACCF/AHA/HRS focused update incorporated into the ACCF/AHA/HRS 2008 guidelines for device-based therapy of cardiac rhythm abnormalities: a report of the [place] College of Cardiology Foundation/[place] Heart Association Task Force on Practice Guidelines and the Heart Rhythm Society. J Am Rudy Cardiol 2013;61:e6-75. Class I: WATCH TECHNICIAN is indicated for patients who have LVEF [...] recommended that she become more active. Immunizations Immunization Administration Dates Next Due Influenza, Quadrivalent, Spl [...] on file Legal Sex Female 4:02 PM FAMILY RESOURCE MANAGEMENT SPECIALIST Gender Identity Female 02/13/2020 7:45 AM CDT Sexual Orientation Straight 02/13/2020 7: 45 AM CDT Last Filed Vital Signs Vital Sign Reading Time Taken Comments Blood Pressure 129/71 05/22/2024 10:15 AM FAMILY RESOURCE MANAGEMENT SPECIALIST Pulse 67 05/22/2024 10:15 AM FAMILY RESOURCE MANAGEMENT SPECIALIST Temperature 36.6 C (97.9 F) 10/23/2023 6:40 AM CDT Respiratory Rate 17 10/23/2023 6:40 AM CDT Oxygen Saturation 98% 04/25/2024 9:42 AM FAMILY RESOURCE MANAGEMENT SPECIALIST Inhaled Oxygen Concentration - - Weight 85.7 kg (189 lb) 04/25/2024 9:42 AM FAMILY RESOURCE MANAGEMENT SPECIALIST Height 162.6 cm (5' 4 ) 04/25/2024 9:42 AM FAMILY RESOURCE MANAGEMENT SPECIALIST Body Mass Index 32.44 04/25/2024 9:42 AM FAMILY RESOURCE MANAGEMENT SPECIALIST Plan of Treatment Not on file Medical Devices Implanted Type Area Lifter Driver Device Identifier Shelf Expiration Date Model / Serial / Lot Medtronic Inc [id number] Cardiac Lufkin Hf 2 Chamber Df4 Inline Cnctr Is4 - [id number] - [id number] Implanted:Qty: 1 on 03/03/2020 by True Ziegler MD at [facility] ICD Medtronic Inc [id number] 07/04/2021 DTP [id number] / [id number] 2S / Medtronic Cardiac Rhythm Mgmt [id number] Sprint Quattro Secure 62cm Tripolar Screw In Extendable - [id number] - [id number] Implanted:Qty: 1 on 03/03/2020 by True Ziegler MD at [facility] Lead Medtronic Inc [id number] 11/11/2021 [id number] / [id number] / Medtronic Cardiac Rhythm Mgmt [id number] Capsurefix Novus 6.2fr 2mm 52cm Bipolar Screw In Implantable Latex Free - [id number] - [id number] Implanted:Qty: 1 on 03/03/2020 by True Ziegler MD at [facility] Lead Medtronic Inc [id number] 12/23/2021 507 6-52 / [id number] / Medtronic Inc [id number] Lead Attain Stability Quad Mri Surescan Lv 88mm - [id number] - [id number] Implanted:Qty: 1 on 03/03/2020 by True Ziegler MD at [facility] Lead Medtronic Inc [id number] 08/28/2021 [id number] / [id number] 1V / [employer] Device Vascular Closure Femoral Artery Bioabsorbable Dual Method Vascade 6-7fr Collagen [id number] - [id number] - [id number] Implanted:Qty: 1 on 10/22/2023 by Henrique Zuluaga MD at [facility] Vascular Closure Device [employer] 07/24/2025 [id number] -[id number] / [id number] / [id number] [employer] Vascade Mvp 6-12fr Venous Closure [id number] - [id number] - [id number] Implanted:Qty: 1 on 10/22/2023 by Henrique Zuluaga MD at [facility] Vascular Closure Device [employer] 06/26/2025 [id number] -[id number] / [id number] / [id number] [employer] Vascade Mvp 6-12fr Venous Closure [id number] - [id number] - [id number] Implanted:Qty: 1 on 10/22/2023 by Henrique Zuluaga MD at [facility] Vascular Closure Device [employer] 06/26/2025 [id number] -[id number] / [id number] / [id number] Procedures Procedure Name Priority Date/Time Associated Diagnosis Comments CT HEART MORPHOLOGY AND CORONARY ARTERIES W CONTRAST Schedule Routine, Read Routine (OP Routine) 05/22/2024 10:43 AM FAMILY RESOURCE MANAGEMENT SPECIALIST Chronic systolic heart failure (CMS/HCC) (HCC) TRANSTHORACIC ECHO (TTE) COMPLETE W DOPPLER/CF W CONTRAST Routine 05/01/2024 9:27 AM FAMILY RESOURCE MANAGEMENT SPECIALIST Chronic systolic heart failure (CMS/HCC) (HCC) EGFR Routine 04/25/2024 11:11 AM FAMILY RESOURCE MANAGEMENT SPECIALIST Chronic systolic heart failure (CMS/HCC) (HCC) COMPREHENSIVE METABOLIC PANEL Routine 04/25/2024 11:11 AM FAMILY RESOURCE MANAGEMENT SPECIALIST Chronic systolic heart failure (CMS/HCC) (HCC) DEVICE CHECK - REMOTE Routine 03/26/2024 11:47 PM FAMILY RESOURCE MANAGEMENT SPECIALIST from Last 3 Months Results * CTA Heart and Coronary Arteries W Morphology when Performed (05/22/2024 10:43 AM FAMILY RESOURCE MANAGEMENT SPECIALIST) Anatomical Region Laterality Modality Chest N/A Computed Tomogra phy 05/22/2024 11:4 2 AM FAMILY RESOURCE MANAGEMENT SPECIALIST Impressions 05/22/2024 11:52 AM FAMILY RESOURCE MANAGEMENT SPECIALIST 1. Minimal eccentric calcified plaque noted within the proximal RCA and LAD with <25% stenosis. No anomalous coronary artery or dissection. 2. Calcium score is 1. 3. Small hiatal hernia. Dictated by: Katherine West MD, MPH The radiology attending physician has personally reviewed this study, and had reviewed and/or edited this written report and agrees with it. Electronically signed by: Constantine Clemens M.D. Narrative 05/22/2024 11:52 AM FAMILY RESOURCE MANAGEMENT SPECIALIST EXAMINATION: CORONARY CT ANGIOGRAM HISTORY: Chest pain/anginal equivalent. Intermediate CAD risk. TECHNIQUE: CT angiography of the coronary arteries was performed after the administration of 93 mL of Optiray 350. Images were also obtained precontrast for the purposes of calcium scoring. Prior to the examination, 0.8 mg nitroglycerin was administered sublingually. The patient's heart rate at the time of the examination was 75 beats per minute. Images were transferred to a 3D workstation for additional post-processing. FINDINGS: Limited evaluation secondary to respiratory motion in this paced patient. The coronary arteries are right system dominant. There is no anomalous coronary origin or course. No focal caliber change or irregularity to suggest coronary artery dissection. Right coronary system: Minimal eccentric calcified plaque is noted within the proximal right coronary artery with <25th% stenosis. Otherwise, no significant calcified or noncalcified atherosclerotic disease. Left coronary system: Minimal eccentric plaque is noted in the proximal left anterior descending artery with <25% stenosis. Otherwise, no significant calcified or noncalcified atherosclerotic disease. The calculated calcium score is 1. Other findings: Triple lead left subclavian approach pacemaker/defibrillator with leads terminating in the right atrium, right ventricle and coronary sinus. No suspicious pulmonary nodule. No pulmonary consolidation. No pleural effusion. No pneumothorax. Heart size is within normal limits. Trace pericardial fluid. Partially thrombosed pseudoaneurysm of a subsegmental branch of the superior segmental right lower lobe pulmonary artery. No significant atherosclerotic calcifications of the thoracic aorta. Patulous esophagus. Small hiatal hernia. Procedure Note Constantine Clemens MD - 05/22/2024 EXAMINATION: CORONARY CT ANGIOGRAM HISTORY: Chest pain/anginal equivalent. Intermediate CAD risk. TECHNIQUE: CT angiography of the coronary arteries was performed after the administration of 93 mL of Optiray 350. Images were also obtained precontrast for the purposes of calcium scoring. Prior to the examination, 0.8 mg nitroglycerin was administered sublingually. The patient's heart rate at the time of the examination was 75 beats per minute. Images were transferred to a 3D workstation for additional post-processing. FINDINGS: Limited evaluation secondary to respiratory motion in this paced patient. The coronary arteries are right system dominant. There is no anomalous coronary origin or course. No focal caliber change or irregularity to suggest coronary artery dissection. Right coronary system: Minimal eccentric calcified plaque is noted within the proximal right coronary artery with <25th% stenosis. Otherwise, no significant calcified or noncalcified atherosclerotic disease. Left coronary system: Minimal eccentric plaque is noted in the proximal left anterior descending artery with <25% stenosis. Otherwise, no significant calcified or noncalcified atherosclerotic disease. The calculated calcium score is 1. Other findings: Triple lead left subclavian approach pacemaker/defibrillator with leads terminating in the right atrium, right ventricle and coronary sinus. No suspicious pulmonary nodule. No pulmonary consolidation. No pleural effusion. No pneumothorax. Heart size is within normal limits. Trace pericardial fluid. Partially thrombosed pseudoaneurysm of a subsegmental branch of the superior segmental right lower lobe pulmonary artery. No significant atherosclerotic calcifications of the thoracic aorta. Patulous esophagus. Small hiatal hernia. IMPRESSION: 1. Minimal eccentric calcified plaque noted within the proximal RCA and LAD with <25% stenosis. No anomalous coronary artery or dissection. 2. Calcium score is 1. 3. Small hiatal hernia. Dictated by: Katherine West MD, MPH The radiology attending physician has personally reviewed this study, and had reviewed and/or edited this written report and agrees with it. Electronically signed by: Constantine Clemens M.D. us Caren Spain MD IMG CT PROCEDURES Final Re sult * TRANSTHORACIC ECHO (TTE) COMPLETE W DOPPLER/CF W CONTRAST (05/01/2024 9:27 AM FAMILY RESOURCE MANAGEMENT SPECIALIST) LV EF 55 % CARDIOREPORT Anatomical Region Laterality Modality Ultrasound 05/01/2024 8:30 AM FAMILY RESOURCE MANAGEMENT SPECIALIST Narrative 05/01/2024 2:40 PM FAMILY RESOURCE MANAGEMENT SPECIALIST Patient name: Jessy Mae Date of test: 05/01/2024 Type of test: TTE w/Doppler Hospital #: 0 Date of : 1955 (F) Chief Of Hospital Medicine: COTY Benton Referring Physician: CAREN SPAIN MD Contrast Agent: 0.4 ml Optison Administered, (2.6 ml wasted). Contrast Administered by: Kaykay Deubner, RN Supervised/Interpreted by: Sebastian Colon MD Diagnosis: Location: [facility] Reason for test: Chronic Heart Failure MV [...] 2=Hypo 3=Akinetic 4=Dyskin./Aneurysm 0=Not visualized) Parasternal Long Caldwell:MAS=1 BAS=1 MIL=1 DAMON=1 Parasternal Short Caldwell:MAS=1 MIS=1 ND=1 MIL=1 MAL=1 MA=1 Apical 4 Chambers:=1 MIS=1 BIS=1 BAL=1 MAL=1 AL=1 AC=1 Apical 2 Chambers:AI=1 ND=1 BI=1 BA=1 MA=1 AA=1 AC=1 LV Global [...] MD By signing this report, the attending print buyer certifies that he or she has personally supervised and interpreted the echocardiogram and has reviewed and or edited and agrees with the written comments contained within the report. Procedure Note Sebastian Colon MD - 05/01/2024 Patient name: Jessy Mae Date of test: 05/01/2024 Type of test: TTE w/Doppler Hospital #: 0 Date of : 1955 (F) Chief Of Hospital Medicine: COTY Benton Referring Physician: CAREN SPAIN MD Contrast Agent: 0.4 ml Optison Administered, (2.6 ml wasted). Contrast Administered by: Kaykay Kenny RN Supervised/Interpreted by: Sebastian Colon MD Diagnosis: Location: [facility] Reason for test: Chronic Heart Failure MV [...] 2=Hypo 3=Akinetic 4=Dyskin./Aneurysm 0=Not visualized) Parasternal Long Caldwell:MAS=1 BAS=1 MIL=1 DAMON=1 Parasternal Short Caldwell:MAS=1 MIS=1 ND=1 MIL=1 MAL=1 MA=1 Apical 4 Chambers:=1 MIS=1 BIS=1 BAL=1 MAL=1 AL=1 AC=1 Apical 2 Chambers:AI=1 ND=1 BI=1 BA=1 MA=1 AA=1 AC=1 LV Global [...] MD By signing this report, the attending print buyer certifies that he or she has personally supervised and interpreted the echocardiogram and has reviewed and or edited and agrees with the written comments contained within the report. Caren Spain MD CV ECHO PROCEDURES Final R esult * eGFR (04/25/2024 11:11 AM FAMILY RESOURCE MANAGEMENT SPECIALIST) eGFR 70 >=60 mL/min/1. 73 m2 Comment: Interpretive Data Reference Interval Normal >/= 90 mL/min/1.73m2 Mildly decreased* 60 - 89 mL/min/1.73m2 Mildly to moderately decreased 45 - 59 mL/min/1.73m2 Moderately to severely decreased 30 - 44 mL/min/1.73m2 Severely decreased 15 - 29 mL/min/1.73m2 Kidney Failure < 15 mL/min/1.73m2 *Relative to young adult level Estimated glomerular filtration rate is determined by the 2020 CKD-EPI equation recommended by the National Kidney Foundation (A Unifying Approach to GFR Estimation: Recommendations of the NKF-ASK Task Force on Reassessing the Inclusion of Race in Diagnosing Kidney Disease, JASN 202). The CKD-EPI equation should not be used for patients with unstable renal function and has not been validated in children and those over 70. Current interpretive data was last reviewed 2021. Blood 04/25/2024 11:1 1 AM FAMILY RESOURCE MANAGEMENT SPECIALIST 04/25/2024 12:02 PM FAMILY RESOURCE MANAGEMENT SPECIALIST Caren Spain MD LAB BLOOD ORDERABLES Final Result [facility] [id number] [facility]. Department of [employer] [place], [place] [id number] * Comprehensive metabolic panel (04/25/2024 11:11 AM FAMILY RESOURCE MANAGEMENT SPECIALIST) Sodium 140 135 - 145 mmol/L [...] >/= 126 mg/dl is diagnostic for diabetes. Fasting is defined as no caloric intake [...] [facility] Blood 04/25/2024 11:1 1 AM FAMILY RESOURCE MANAGEMENT SPECIALIST 04/25/2024 12:02 PM FAMILY RESOURCE MANAGEMENT SPECIALIST us Caren Spain MD LAB BLOOD ORDERABLES Final Result [facility] [id number] [facility]. [place] [address] * DEVICE CHECK - REMOTE (03/26/2024 11:47 PM FAMILY RESOURCE MANAGEMENT SPECIALIST) Anatomical Region Laterality Modality Other 03/26/2024 11:4 7 PM FAMILY RESOURCE MANAGEMENT SPECIALIST Narrative 04/02/2024 2:02 PM FAMILY RESOURCE MANAGEMENT SPECIALIST Interpretation Summary: Battery and Leads (BL) Normal parameters noted on battery and lead(s) --- 7.1 yrs remaining longevity (implanted 2019). Lead impedance, sensing, and threshold trends stable and appropriate. No short V-V intervals. Presenting Rhythm (TN) Atrial Sensing-Ventricular Pacing (-LAUNDRY WORKER) --- /LAUNDRY WORKER 77 to 85 bpm. Arrhythmic events (AE) Nonsustained VT event(s) identified --- Since 12/27/23: One NSVT episode, 2 sec. Anticoagulation (AC) Anticoagulation is not clinically [...] appropriate. No short V-V intervals. Presenting Rhythm (TN) Atrial Sensing-Ventricular Pacing (-LAUNDRY WORKER) --- /LAUNDRY WORKER 77 to 85 bpm. Arrhythmic events (AE) Nonsustained VT event(s) identified --- Since 12/27/23: One NSVT episode,2 sec. Anticoagulation (AC) Anticoagulation is not clinically indicated Patient is not on anticoagulant therapy Transmission Information (TI) Device Summary Report Follow Up (FU) Patient's primary treating physician will be apprised of findings us Henrique Zuluaga MD CV CARDIAC SERVI RAQUEL PROCEDURES Final Result from Last 3 Months Insurance MEDICARE [facility]ICARE [facility] MEDICARE [facility] MEDICARE [facility] Advance Directives For more information, please contact: [phone] * Full Code (Latest Code Status on File) Date Activated Date Inactivated Comments 10/22/2023 4:46 PM 10/23/2023 3:25 PM Care Teams Step Down Nurse Relationship Specialty Start Date End Date Jazmine Lozano DO PCP - General Family Medicine 01/30/20
--- OUTSIDE RECORDS SUMMARY | 2024-06-09 01:28 | XMS_ITS | Encounter Summary ---
Author Organization [facility] Address [address] [place] [address] Phone Care Team Providers Care Local Delivery Truck Driver Name Role Phone Jazmine Lozano Primary Care Provider +1- [phone] Encounter Details Date Type Department Care Team (Late st Contact Info) Description 05/26/2024 Telephone [facility] Cardiology [address] [facility] Advanced Medicine 8th [place] [address] [place] [address] Caren Louis MD [address] [place] [address] Social History Tobacco Use Types [...] on file Legal Sex Female 4:02 PM ANGLE BENDER Gender Identity Female 02/13/2020 7:45 AM CDT Sexual Orientation Straight 02/13/2020 7: 45 AM CDT documented as of this encounter Miscellaneous Notes * Telephone Encounter - Xiomara Nichole - 05/26/2024 10:44 AM CST Margareth Pls refer to Enc dated 05/23/24 re: CRMD form Tylor Riojaston with [facility] stating only half of the CRMD form came thru on their fax machine. It has streak amos all thru the paper. Suggested to have our IT dept clean the fax machine. E BENDER documented in this encounter Plan of Treatment Not on file documented as of this encounter Visit Diagnoses Not on filedocumented in this encounter Care Teams Local Delivery Truck Driver Relationship Specialty Start Date End Date Jazmine Lozano DO PCP - General Family Medicine 01/30/20 documented as of this encounter
--- OUTSIDE RECORDS SUMMARY | 2024-06-09 01:28 | XMS_ITS | Data Portability ---
Author Organization [place] - [facility], Main Office Address [address] [place] [address] Care Team Providers Care Eligibility Analyst Name Role Phone SANTINO BLUM Primary Care Provider [phone] SANTINO BLUM Referring Provider [phone] Assessment Encounter Date Assessment Date Assessment LastModified [...] Range motion is from 0-130 degrees bilaterally. Tuwg-bd-lqeedcig tenderness over both medial joint lines. ChloraPrep [...] DO Not Attach Compendium, Do Not Delete/merge, [id number] 4 15:44:46 injection/a spiration joint/bursa (PROC) - in office procedure, administere d by provider 2023 024 [email or web address] In-Office Order, Internal Use Only DO Not Attach Compendium DO Not Attach Compendium, Do Not Delete/merge, [id number] 4 15:15:34 injection/a spiration joint/bursa (PROC) - in office procedure, administere d by provider 2022 023 [email or web address] In-Office Order, Internal Use Only DO Not Attach Compendium DO Not Attach Compendium, Do Not Delete/merge, [id number] 3 14:27:46 injection/a spiration joint/bursa (PROC) - in office procedure, administere d by provider 2022 023 [email or web address] In-Office Order, Internal Use Only DO Not Attach Compendium DO Not Attach Compendium, Do Not Delete/merge, [id number] 3 11:28:43 injection/a spiration joint/bursa (PROC) - in office procedure, administere d by provider 2022 023 [email or web address] In-Office Order, Internal Use Only DO Not Attach Compendium DO Not Attach Compendium, Do Not Delete/merge, [id number] 3 15:05:06 Surgeries None recorded. Imaging XR, knee 2022 023 [email or web address] [facility], [address], [place], [address], 3 16:22:06 Medication Orders Kenalog 10 mg/mL suspension for injection 2023 024 [facility][id number], [address], [place], [place], [id number], 4 16:04:57 Marcaine (PF) 0.5 % (5 mg/mL) injection solution 2023 024 [facility] #30462, [address], [place], [place], [id number], 4 16:04:57 Kenalog 10 mg/mL suspension for injection 2023 024 [facility] #09411, [address], [place], [place], [id number], 4 15:36:20 ropivacaine (PF) 5 mg/mL (0.5 %) injection solution 2023 024 [facility] #75929, [address], [place], [place], [id number], 4 15:36:20 Kenalog 10 mg/mL suspension for injection 2022 023 [facility] #00064, [address], [place], [place], [id number], 3 15:53:58 ropivacaine (PF) 5 mg/mL (0.5 %) injection solution 2022 023 [facility]18697, [address], [place], [place], [id number], 15:53:58 Kenalog 10 mg/mL suspension for injection 2022 023 [facility] #[id number], [address], [place], [place], [id number], 15:20:01 ropivacaine (PF) 5 mg/mL (0.5 %) injection solution [address] [facility]01932, [address] , [place], [place], [id number], 3 14:25:52 Kenalog 10 mg/mL suspension for injection 2022 023 [facility] #[id number], [address], [place], [place], [id number], 3 16:39:35 ropivacaine (PF) 5 mg/mL (0.5 %) injection solution [address] [facility] #24290, [address], [place], [place], [id number], 14:25:52 Patient TargetsNo targets recorded. Patient InstructionsNo instructions recorded. Reason for Referral None Reported. Results Created Date Observation Date Name Description Value Unit Range Abnormal Flag Note LastModifiedBy Organization Detail LastModifiedTime 11/04/19 23 XR, knee No observ ation record ed. [facility] [place] [address], [place], [address], 11/03/2022 15:23:46 Result Notes None recorded. Problems Name Problem SNOMED Code Status Onset Date Resolution Date Notes Provider Name and Address Organization Details Recorded Time Bilateral osteoarthr itis of knees 3453208917085 07 Active 2022 Sydney Michael, CHARLIE null, [place] - [facility] 3 15:03:35 Osteoarthr itis of knee 241380088 Active Not Available [facility] 3 04:53:00 Osteoarthr itis 171038827 Active Not Available [facility] 3 04:53:00 Problem Notes None recorded. Procedures Surgical History Date Name Laterality Status Provider Name and Address Organization Details Recorded Time Gallbladder Surgery completed Not Available [facility] 06/21/2022 04:43:40 Hysterectomy completed Not Available [facility] 06/21/2022 04:43:40 kidney excision completed Not Available [facility] 06/21/2022 04:43:40 Imaging Results Imaging Date Name Status LastModified by Organiz ation Details LastModified Time 11/03/2022 XR, knee completed [facility] [place] [address], [place], [address], 11/03/2022 15:23:46 Procedure Notes None recorded. Medical [...] administe red by the provider 01/06 completed [facility]: [phone] Not Available Not Available [...] 30 mg by injection route. 2023 active [facility] [phone] Not Available Not Available Not Available Entresto 49 mg-51 mg tablet active Not Available Not Available Not Available [employer] COVID-19 Ag Self Test kit TEST DIRECTED TODAY 02/09 completed Not Available Not Available Not Available Vitals Date Recorded Body height Provider Name an d Address Organization Details Last Updated DateTime 07/26/2022 162.56 cm Sydney Rodriguez [facility] [employer] [facility] 07/26/2022 15:11:28 Date Recorded Body height Provider Name an d Address Organization Details Last Updated DateTime 11/03/2022 162.56 cm Sydney Rodriguez [facility] [employer] [facility] 11/03/2022 14:40:45 Date Recorded Body height Body mass index (BMI) Body weight Provider Name and Address Organization Details Last Updated DateTime 02/09/2023 160.02 cm 34.5 kg/m2 89690.51 g Sydney Rodriguez [facility] [employer] [facility] 02/09/2023 14:32:51 Date Recorded Body height Provider Name an d Address Organization Details Last Updated DateTime 05/16/2023 160.02 cm Trisha Franciss [facility] [employer] [facility] 05/16/2023 15:13:53 Date Recorded Body height Provider Name an d Address Organization Details Last Updated DateTime 08/06/2023 160.02 cm Lesley Jerrica [facility] [employer] [facility] 08/06/2023 15:36:10 Social History Question Answer Notes LastModified by Organizat ion Details LastModified Time Tobacco Smoking Status Never Smoker Niesha gatica, [facility] [employer] [facility] 05/16/2023 14:56:04 What Is Your Level Of Alcohol Consumption? Occasional [id number] Information not available 06/21/2022 Sex: Unknown Functional Status None recorded. Mental Status None recorded. Family History Relationship Description Onset Age of this Age Resolved Age Notes LastModified by Organization Details LastModified Time Unspecified Relation Heart disease [id number] Not available 06/21/2022 04:43:48 Unspecified Relation Hypertensive disorder [id number] Not available 06/21/2022 04:43:48 Unspecified Relation Family history of malignant neoplasm [email or web address] Not available 05/16 14:56:04 Medical History Condition Response BLINDNESS N KIDNEY STONES N MRSA N CARPAL TUNNEL SYNDROME N LUNG DISEASE/DISORDER N HISTORY OF DRUG ABUSE N COPD N RADIATION / CHEMOTHERAPY N SPORTS INJURY N ANKLE PAIN N BLOOD DISEASES N SCHIZOPHRENIA N SHINGLES N BOWEL PROBLEMS N SHOULDER PAIN N DEPRESSION (INCLUDING POST ) N STROKE/TIA [...] N NEUROPATHY N AIDS/HIV N FRACTURES N ELBOW PAIN N HYPERTENSION N TOURETTE'S N ANXIETY DISORDER N Metal allergy N BLOOD TRANSFUSION N ANEMIA/BLOOD DISORDER N BIPOLAR DISORDER N BRONCHITIS N OSTEOARTHRITIS N TUBERCULOSIS N FOOT PROBLEM N HEART VALVE DISORDERS N ALLERGIES/HAYFEVER N SOFT TISSUE INJURY N INFECTIOUS DISEASE N HEART ARRHYTHMIA N INSOMNIA N RHEUMATOID ARTHRITIS N HIGH CHOLESTEROL / HYPERLIPIDEMIA N EDEMA N CHRONIC PAIN SYNDROME N CAROTID BLOCKAGE N BACK / NECK PROBLEMS N HAVE YOU BEEN HOSPITALIZED OR SEEN IN [facility] ER IN THE PAST YEAR ? N BURSITIS N HERNIATED DISC N DIALYSIS N FIBROMYALGIA N OSTEOPOROSIS N ARTHRITIS Y NO SIGNIFICANT PAST MEDICAL HISTORY N PERIPHERAL NEUROPATHY N DIABETES, TYPE N HEARTBURN / REFLUX N HEPATITIS / LIVER DISEASE N GOUT N SLEEP DISORDER N ALZHEIMER'S DISEASE N HERPES N SEIZURES/EPILEPSY N HEADACHES/MIGRAINES N VASCULAR DISEASE N HIP PAIN N Blood Disorder N DIZZINESS N HEAD TRAUMA OR INJURY N HEART DISEASE/HEART PROBLEMS Y MULTIPLE SCLEROSIS N CARDIAC ARRHYTHMIA N CANCER: SPECIFY N ANESTHESIA COMPLICATIONS N ATRIAL FIBRILLATION N AUTOIMMUNE DISEASE N Gynecological HistoryNo gynecological history recorded. Obstetrics History GPAL:G 0 P 0 0 0 0 Past Encounters Encounter ID Performer Location Encounter Start Date Encounter Closed Date Diagnosis/Indication Diagnosis SNOMED-CT Code Diagnosis ICD10 Code Diagnosis Note [id number] [facility] [place] [address] [place] [address] 09/17/2020 00:00:00 09/17/2020 16:29:15 [id number] [facility] [place] [address] [place] [address] 12/24/2020 00:00:00 12/24/2020 10:52:32 [id number] [facility] [place] [address] [place] [address] 03/23/2021 00:00:00 03/23/2021 11:53:37 [id number] [facility] [place] [address] [place] [address] 06/29/2021 00:00:00 06/29/2021 16:05:12 [id number] [facility] [place] [address] [place] [address] 10/05/2021 00:00:00 10/05/2021 12:17:30 [id number] [facility] [place] [address] [place] [address] 01/06/2022 00:00:00 01/06/2022 15:55:38 [id number] [facility] [place] [address] [place] [address] 04/07/2022 00:00:00 04/07/2022 14:49:23 [id number] NANCI Wade [facility] [place] [address] [place] [address] 07/26/2022 14:57:06 07/26/2022 17:05:08 Bilateral osteoarthritis of knees 2869485948 73116 M17.0 [id number] NANCI Wade [facility] [place] [address] [place] [address] 11/03/2022 14:33:06 11/03/2022 16:22:05 Bilateral osteoarthritis of knees 5405724945 54339 M17.0 [id number] NANCI Wade [facility] [place] [address] [place] [address] 02/09/2023 14:04:56 02/09/2023 15:55:55 Bilateral osteoarthritis of knees 4374442261 28474 M17.0 [id number] NANCI Wade [facility] [place] [address] [place] [address] 05/16/2023 14:43:46 05/17/2023 13:48:12 Bilateral osteoarthritis of knees 3170011431 90487 M17.0 Osteoarthr itis of knee 540026371 M17.9 Osteoarthritis 460374715 M17.0 [id number] NANCI Wade [facility] [place] [address] [place] [address] 08/06/2023 15:19:36 08/06/2023 16:28:42 Bilateral osteoarthritis of knees 2083432734 07839 M17.0 Health Concerns Section Related Observation LastModified by Organization Detai ls LastModified Time None Recorded Concern Status LastModified by Organization Details LastModified Time None Recorded Advance Directives Directive None Recorded Payers Encounter Date Sequence Insurance Name Policy Number Policy Marion Covered Member ID [place] Member ID Guarantor Name 07/26/2022 1 [place] Jessy Mae [id number] Jessy Mae 07/26/2022 2 [employer] (MEDICARE SUPPLEMENT) Jessy Mae [id number] Jessy Mae 11/03/2022 1 [place] Mae [id number] Jessy Mae 11/03/2022 2 [employer] (MEDICARE SUPPLEMENT) Jessy Mae [id number] Jessy Mae 02/09/2023 1 [place] [id number] Jessy Mae 02/09/2023 2 [employer] (MEDICARE SUPPLEMENT) Jessy Mae [id number] Jessy Mae 05/16/2023 1 [place] Mae [id number] Jessy Mae 05/16/2023 2 [facility] OPT[facility] (MEDICARE SUPPLEMENT) Jessy Mae [id number] Jessy Mae 08/06/2023 1 [place] Jessy Mae [id number] Jessy Mae 08/06/2023 2 [facility] [employer] OPTIONS (MEDICARE SUPPLEMENT) Jessy Mae [id number] Jessy Mae OBGyn Episode No OBEpisode recorded.
--- OUTSIDE RECORDS SUMMARY | 2024-06-09 01:28 | XMS_ITS | Clinical Summary ---
Author Organization [facility] D Address [address] [place] [address] Care Team Providers Care Recycling Operations Manager Name Role Phone Stellakarlachata Jazmine Debby Primary Care Provider [phone]- [phone] Allergies No known active allergies Medications calcium carbonate-vitami n D3 (CALCIUM 600 + D,3,) 600 mg calcium- 200 unit capsule 0 0 5 Active multivitamin tablet tablet take 1 tablet by oral route every day with food 0 0 5 Active eamir-4y-ryo-epa -fish oil (OMEGA 3) 350-400 mg capsule [...] on telemetry overnight. Started 81mg ASA on 72 AM. -Telemetry overnight with sinus rhythma, AsVP [...] statin Assessment & Plan (03/01/2022 2:46 PM REGISTERED NURSE POST PARTUM): Well controlled with an LDL of 16 mg/dL. Continue low intensity Lipitor. Assessment & Plan (02/25/2021 11:44 AM CDT): She is on chronic lipid-lowering therapy. LDL 41 on 09/09/2020. Continue atorvastatin 10 mg daily. Assessment & Plan (09/10/2020 8:21 AM CDT): On low-dose atorvastatin, LDL is 41. Nonfasting triglycerides are elevated. Continue atorvastatin 10 mg daily. Presence of cardiac resynchr onization therapy defibrillator (MARKET RESEARCH COORDINATOR-D) 03/04/2020 Overview (03/04/2020): Medtronic Aubrey HF QUAD MARKET RESEARCH COORDINATOR-D implanted on 03/03/20 for NICM/CHF/LBBB. Toney/Victor Manuel Membreno Assessment & Plan (02/25/2021 11:45 AM CDT): Monitored through the arrhythmia Center. Assessment & Plan (09/10/2020 8:20 AM CDT): Followed through Dr. Ziegler. Chronic systolic heart failure ([facility]) 020 Assessment & Plan (02/25/2021 11:43 AM [...] meds Assessment & Plan (03/01/2022 2:45 PM REGISTERED NURSE POST PARTUM): With restored LV function. Continue Altace and [...] Altace. Assessment & Plan (02/23/2020 4:47 PM REGISTERED NURSE POST PARTUM): Severe nonischemic dilated cardiomyopathy with [place] heart Association class 2 symptoms. LV ejection [...] KA, Estes NAM III, Brenda Mckinney RA, Tara Vickers AM, Jeremy GONZALEZ, Alexis ARANA, Enoch MARTINEZ, Elizabeth MARCOS, Adrienne GRANT, Jessa FELIX, Jose MAYER, Augustus ROGER, Jesica AMES. ACC/AHA/HRS 2008 guidelines for device-based therapy of cardiac rhythm abnormalities: a report of the [place] College [employer]iology/[place] Heart Association Task Force on Practice Guidelines [...] cardiac rhythm abnormalities: a report of the [place] College [employer] Cardiology Foundation/[place] Heart Association Task Force on Practice Guidelines and the Heart Rhythm Society. J Am Rudy Cardiol 2013;61:e6-75. Class I: MARKET RESEARCH COORDINATOR is indicated for patients who have LVEF [...] Type Department Care Team Description 05/26/2024 Telephone [facility] [address]th [place] [address] [place] [address] Jenna Armstrong 05/26/2024 Telephone [facility]iology [address] [facility] 8th [place] [address] [place] [address] Caren Spain MD 05/23/2024 Telephone [facility] 8th [place] [address] [place] [address] Henrique Zuluaga MD 05/22/2024 9:49 AM REGISTERED NURSE POST PARTUM - 05/22/2024 11:59 PM REGISTERED NURSE POST PARTUM Hospital Encounter [facility] [address] [place] [address] Caren Spain MD Chronic systolic heart failure (CMS/HCC) (HCC) Discharge Disposition: Discharge to home or self care 05/22/2024 Orders Only [facility] Transplant Heart [address] [facility] [address] Mailstop [phone] [place] [address] Mary Pulido RN Chronic systolic heart failure (CMS/HCC) (HCC) (Primary Dx) 05/16/2024 Telephone [facility] Cardiology [facility] [address]th [place] [address] [place] [address] Caren Spain MD 05/01/2024 8:30 AM REGISTERED NURSE POST PARTUM Ancillary Procedure [facility] [address] [place] [address] [address] [place] [address] Chronic systolic heart failure (CMS/HCC) (HCC) 04/25/2024 11:05 AM REGISTERED NURSE POST PARTUM Lab [facility] [address] [place] [address] Chronic systolic heart failure (CMS/HCC) (HCC) 04/25/2024 10:00 AM REGISTERED NURSE POST PARTUM Office Visit [facility] Cardiology [address] [place] [address] Medical Office Building [address] [place] [address] Caren Spain MD Chronic systolic heart failure (CMS/HCC) (HCC) (Primary Dx); PVC (premature ventricular contraction); LBBB (left bundle branch block); Primary osteoarthritis of both knees 03/26/2024 Orders Only [facility]iology [facility] [address]th [place] [address] [place] [address] Henrique Zuluaga MD from Last 3 Months Immunizations Immunization Administration Dates Next Due Influenza, Quadrivalent, Spl it, Preservative Free, Intramuscular 2018 Tdap 12/16/2018 Surgical History Surgery Date Site/Laterality Comments CHOLECYSTECTOMY Cholecystectomy NEPHRECTOMY Left Nephrectomy HYSTERECTOMY Hysterectomy TOTAL ABDOMINAL HYSTERECTOMY Hysterectomy, total INSERT / REPLACE / REMOVE PACEMAKER Medical History Medical History Date Comments Hx Other Medical Diverticulosis Hx Other Medical diverticulosis; Comments: [facility] 07/10/2014 - Hx Other Medical nephrectomy; Co mments: [facility] 07/10/2014 - Cardiomyopathy (HCC) Left bundle branch block Hyperlipidemia Arthritis Heart disease January 2009 Chronic kidney disease November 2011 Hypertension Family History Medical History Relation Name Comments Cancer Father Lucho Jyotsna Arthritis Mother Mother Cancer Mother Mother Stent Mother's Brother 2 Coronary Stent Placement; Heart disease Mother's Brother 3 Darin Zahida Anesthesia problems Neg Hx Relation Name Status Comments Father Lucho Jyotsna Mother Mother Mother's Brother 1 Alive Mother's [...] on file Legal Sex Female 4:02 PM REGISTERED NURSE POST PARTUM Gender Identity Female 02/13/2020 7:45 AM CDT Sexual Orientation Straight 02/13/2020 7: 45 AM CDT Obstetrics History Last Filed Vital Signs Vital Sign Reading Time Taken Comments Blood Pressure 129/71 05/22/2024 10:15 AM REGISTERED NURSE POST PARTUM Pulse 67 05/22/2024 10:15 AM REGISTERED NURSE POST PARTUM Temperature 36.6 C (97.9 F) 10/23/2023 6:40 AM CDT Respiratory Rate 17 10/23/2023 6:40 AM CDT Oxygen Saturation 98% 04/25/2024 9:42 AM REGISTERED NURSE POST PARTUM Inhaled Oxygen Concentration - - Weight 85.7 kg (189 lb) 04/25/2024 9:42 AM REGISTERED NURSE POST PARTUM Height 162.6 cm (5' 4 ) 04/25/2024 9:42 AM REGISTERED NURSE POST PARTUM Body Mass Index 32.44 04/25/2024 9:42 AM REGISTERED NURSE POST PARTUM Plan of Treatment Health Maintenance Due Date [...] Tdap) 12/16/2028 Medical Devices Implanted Type Area Credit Risk Review Officer Device Identifier Shelf Expiration Date Model / Serial / Lot Medtronic Inc [id number] Cardiac Aubrey Hf 2 Chamber Df4 Inline Cnctr Is4 - [id number] - [id number] Implanted:Qty: 1 on 03/03/2020 by True Ziegler MD at [facility] ICD Medtronic Inc [id number] 07/04/2021 DTP [id number] / [id number] 2S / Medtronic Cardiac Rhythm Mgmt [id number] Sprint Quattro Secure 62cm Tripolar Screw In Extendable - [id number] - [id number] Implanted:Qty: 1 on 03/03/2020 by True Ziegler MD at [facility] Lead Medtronic Inc [id number] 11/11/2021 693 [id number] / [id number] 5V / Medtronic Cardiac Rhythm Mgmt 5076-52 Capsurefix Novus 6.2fr 2mm 52cm Bipolar Screw In Implantable Latex Free - [id number] - [id number] Implanted:Qty: 1 on 03/03/2020 by True Ziegler MD at [facility] Lead Medtronic Inc [id number] 12/23/2021 507 6-52 / [id number] / Medtronic Inc [id number] Lead Attain Stability Quad Mri Surescan Lv 88mm - [id number] - [id number] Implanted:Qty: 1 on 03/03/2020 by True Ziegler MD at [facility] Lead Medtronic Inc [id number] 08/28/2021 [id number] 888 / [id number] 1V / [employer] Device Vascular Closure Femoral Artery Bioabsorbable Dual Method Vascade 6-7fr Collagen [id number] - [id number] - [id number] Implanted:Qty: 1 on 10/22/2023 by Henrique Zuluaga MD at [facility] Vascular Closure Device [employer] 07/24/2025 [id number] -[id number] / [id number] / [id number] [employer] Vascade Mvp 6-12fr Venous Closure [id number] - [id number] - [id number] Implanted:Qty: 1 on 10/22/2023 by Henrique Zuluaga MD at [facility] Vascular Closure Device [employer] 06/26/2025 [id number] -10U / [id number] / [id number] [employer] Vascade Mvp 6-12fr Venous Closure [id number] - [id number] - [id number] Implanted:Qty: 1 on 10/22/2023 by Henrique Zuluaga MD at [facility] Vascular Closure Device [employer] 06/26/2025 [id number] -[id number] / [id number] / [id number] Procedures Procedure Name Priority Date/Time Associated Diagnosis Comments CT HEART MORPHOLOGY AND CORONARY ARTERIES W CONTRAST Schedule Routine, Read Routine (OP Routine) 05/22/2024 10:43 AM REGISTERED NURSE POST PARTUM Chronic systolic heart failure (CMS/HCC) (HCC) TRANSTHORACIC ECHO (TTE) COMPLETE W DOPPLER/CF W CONTRAST Routine 05/01/2024 9:27 AM REGISTERED NURSE POST PARTUM Chronic systolic heart failure (CMS/HCC) (HCC) EGFR Routine 04/25/2024 11:11 AM REGISTERED NURSE POST PARTUM Chronic systolic heart failure (CMS/HCC) (HCC) COMPREHENSIVE METABOLIC PANEL Routine 04/25/2024 11:11 AM REGISTERED NURSE POST PARTUM Chronic systolic heart failure (CMS/HCC) (HCC) DEVICE CHECK - REMOTE Routine 03/26/2024 11:47 PM REGISTERED NURSE POST PARTUM from Last 3 Months Results * CTA Heart and Coronary Arteries W Morphology when Performed (05/22/2024 10:43 AM REGISTERED NURSE POST PARTUM) Anatomical Region Laterality Modality Chest N/A Computed Tomogra phy 05/22/2024 11:4 2 AM REGISTERED NURSE POST PARTUM Impressions 05/22/2024 11:52 AM REGISTERED NURSE POST PARTUM 1. Minimal eccentric calcified plaque noted within [...] Constantine Clemens M.D. Narrative 05/22/2024 11:52 AM REGISTERED NURSE POST PARTUM EXAMINATION: CORONARY CT ANGIOGRAM HISTORY: Chest pain/anginal [...] Patulous esophagus. Small hiatal hernia. Procedure Note Short, Constantine Sosa MD - 05/22/2024 EXAMINATION: CORONARY CT ANGIOGRAM [...] W DOPPLER/CF W CONTRAST (05/01/2024 9:27 AM REGISTERED NURSE POST PARTUM) LV EF 55 % CARDIOREPORT Anatomical Region Laterality Modality Ultrasound 05/01/2024 8:30 AM REGISTERED NURSE POST PARTUM Narrative 05/01/2024 2:40 PM REGISTERED NURSE POST PARTUM Patient name: Jessy Mae Date of test: 05/01/2024 Type of test: TTE w/Doppler Hospital #: 0 Date of : 1955 (F) Bootmaker: COTY Benton Referring Physician: CAREN SPAIN MD Contrast Agent: 0.4 ml Optison Administered, (2.6 ml wasted). Contrast Administered by: Kaykay Kenny RN Supervised/Interpreted by: Sebastian Colon MD Diagnosis: Location: [facility] Reason for test: Chronic Heart Failure [...] 2=Hypo 3=Akinetic 4=Dyskin./Aneurysm 0=Not visualized) Parasternal [place]:MAS=1 BAS=1 MIL=1 DAMON=1 Parasternal [place]:MAS=1 MIS=1 MA=1 MIL=1 MAL=1 MA=1 Apical 4 Chambers:=1 MIS=1 BIS=1 BAL=1 MAL=1 AL=1 AC=1 Apical 2 Chambers:AI=1 MA=1 BI=1 BA=1 MA=1 AA=1 AC=1 LV Global [...] MD By signing this report, the attending perinatal instructor certifies that he or she has personally supervised and interpreted the echocardiogram and has reviewed and or edited and agrees with the written comments contained within the report. Procedure Note Sebastian Colon MD - 05/01/2024 Patient name: Jessy Mae Date of test: 05/01/2024 Type of test: TTE w/Doppler [facility] #: 0 Date of : 1955 (F) Bootmaker: COTY Benton Referring Physician: CAREN SPAIN MD Contrast Agent: 0.4 ml Optison Administered, (2.6 ml wasted). Contrast Administered by: Kaykay Kenny RN Supervised/Interpreted by: Sebastian Colon MD Diagnosis: Location: [facility] Reason for test: Chronic Heart Failure [...] 2=Hypo 3=Akinetic 4=Dyskin./Aneurysm 0=Not visualized) Parasternal [place]:MAS=1 BAS=1 MIL=1 DAMON=1 Parasternal [place]:MAS=1 MIS=1 MA=1 MIL=1 MAL=1 MA=1 Apical 4 Chambers:=1 MIS=1 BIS=1 BAL=1 MAL=1 AL=1 AC=1 Apical 2 Chambers:AI=1 MA=1 BI=1 BA=1 MA=1 AA=1 AC=1 LV Global [...] MD By signing this report, the attending perinatal instructor certifies that he or she has personally supervised and interpreted the echocardiogram and has reviewed and or edited and agrees with the written comments contained within the report. us Caren Spain MD CV ECHO PROCEDURES Final R esult * eGFR (04/25/2024 11:11 AM REGISTERED NURSE POST PARTUM) eGFR 70 >=60 mL/min/1. 73 m2 Comment: [...] reviewed 2021. Blood 04/25/2024 11:1 1 AM REGISTERED NURSE POST PARTUM 04/25/2024 12:02 PM REGISTERED NURSE POST PARTUM us Caren Spain MD LAB BLOOD ORDERABLES Final Result [facility] [address] [facility]. Department [place] [address] * Comprehensive metabolic panel (04/25/2024 11:11 AM REGISTERED NURSE POST PARTUM) Pathologist [facility] Sodium 140 135 - 145 mmol/L Potassium, pl 4.5 3.3 - 4.9 mmol/L [facility] Chloride 103 97 - 110 mmol/L [facility] CO2 26 22 - 32 mmol/L [facility] Anion gap 11 2 - 15 mmol/L [facility] BUN 19 6 - 25 mg/dL [facility] Creatinine 0.90 0.60 - 1.10 mg/dL [facility] Glucose 102 70 - 199 mg/dL [facility] Comment: Interpretive Data Fasting glucose >/= [...] [facility] Blood 04/25/2024 11:1 1 AM REGISTERED NURSE POST PARTUM 04/25/2024 12:02 PM REGISTERED NURSE POST PARTUM us Caren Spain MD LAB BLOOD ORDERABLES Final Result [facility] [address] [facility]. Department [place] [address] * DEVICE CHECK - REMOTE (03/26/2024 11:47 PM REGISTERED NURSE POST PARTUM) Anatomical Region Laterality Modality Other 03/26/2024 11:4 7 PM REGISTERED NURSE POST PARTUM Narrative 04/02/2024 2:02 PM REGISTERED NURSE POST PARTUM Interpretation Summary: Battery and Leads (BL) Normal parameters noted on battery and lead(s) --- 7.1 yrs remaining longevity (implanted 2019). Lead impedance, sensing, and threshold trends stable and appropriate. No short V-V intervals. Presenting Rhythm (AK) Atrial Sensing-Ventricular Pacing (-AUTOMOTIVE COLLISION ESTIMATOR) --- /AUTOMOTIVE COLLISION ESTIMATOR 77 to 85 bpm. Arrhythmic events (AE) [...] appropriate. No short V-V intervals. Presenting Rhythm (AK) Atrial Sensing-Ventricular Pacing (-AUTOMOTIVE COLLISION ESTIMATOR) --- /AUTOMOTIVE COLLISION ESTIMATOR 77 to 85 bpm. Arrhythmic events (AE) [...] Result from Last 3 Months Insurance MEDICARE [facility] MEDICARE [facility] MEDICARE [facility] MEDICARE [facility] Advance Directives For more information, please contact: [phone] * Full Code (Latest Code Status on File) Date Activated Date Inactivated Comments 10/22/2023 4:46 PM 10/23/2023 3:25 PM Care Teams Recycling Operations Manager Relationship Specialty Start Date End Date Jazmine Lozano DO PCP - General Family Medicine 01/30/20
[2024-06-09] MEDS: ACETAMINOPHEN 500 MG TABLET 1000 MG PO (06:15)
[2024-06-09] MEDS: LACTATED RINGERS 1,000 ML 30 ML IV CONT ×2 (06:30→10:49)
[2024-06-09] MEDS: VANCOMYCIN 1,250 MG/NS 250 ML 1,250 MG/250 ML BAG 166.67 MG IVPB (06:55)
[2024-06-09] MEDS: TRANEXAMIC ACID 1,000MG/ISO100 1,000 MG/100 ML BAG 200 MG IVPB (07:00)
--- NOTE | 2024-06-09 07:14 | WPDHPUPDATE1 ---
History and Physical Update Update Date/Time: 06/09/24 07:14 History and Physical has been reviewed, including an updated exam of the patient. There are NO changes in the patient's condition. Risks, benefits, and alternatives have been discussed and questions answered. Patient agrees to proceed with procedure.
--- NOTE | 2024-06-09 07:28 | P.PNAN_ITS ---
Anes - Initial Pre Proc Eval Procedure: Operation Date: 06/09/24 07:30 Proposed Procedures p Left Total Knee Arthroplasty, Cortisone Injection Right Knee - Kasi Anderson MD Date/Time: 06/09/24 07:28 Surgeon: Kasi Anderson MD Pre Op Diagnosis: OA bilat knees Patient Data Age: 69 Gender: F Height: 1.61 m Weight: 88.2 kg Last Vital Signs Temp 97.1 F L 06/09/24 06:45 Pulse 82 06/09/24 06:45 Resp 16 06/09/24 06:45 BP 98/63 L 06/09/24 06:45 Pulse Ox 96 06/09/24 06:45 O2 Del Method Room Air 06/09/24 06:45 Allergies Allergy/AdvReac Type Severity Reaction Status Date / Time No Known Allergies Allergy Mild Verified 06/09/24 06:36 Home Medications ?Medication ?Instructions ?Recorded ?Confirmed ?Type carvedilol 25 mg tablet (Coreg) 25 mg PO Q12H 05/02/19 06/09/24 History cholecalciferol (vitamin D3) 50 2,000 unit PO DAILY 05/02/19 06/09/24 History mcg (2,000 unit) tablet calcium 500 mg (as 1 tablet PO DAILY 06/10/19 06/09/24 History carbonate)-vitamin D3 5 mcg (200 unit) tablet (Calcium 500 + D) ferrous sulfate 27 mg iron tablet 27 mg PO DAILY 06/10/19 06/09/24 History bmbttfxa-bvv-pmrwh acid 0.4 1 tablet PO DAILY 06/10/19 06/09/24 History mg-lycopene 300 mcg-lutein 250 mcg tablet (Centrum Silver) omega 1-ffl-ltt-fish oil 1,000 mg 1 cap PO DAILY 06/10/19 06/09/24 History (120 mg-180 mg) capsule (Fish Oil) vitamin B complex (B 1 tablet PO DAILY 06/10/19 06/09/24 History Complex-Vitamin B12 tablet) spironolactone 25 mg tablet 12.5 mg PO DAILY 11/06/23 06/09/24 History atorvastatin 10 mg tablet See Rx Instructions .Route 03/19/24 06/09/24 Rx .COMPLEX #90 tabs acetaminophen 500 mg tablet 1,000 mg PO Q6H PRN pain 05/19/24 06/09/24 History (Acetaminophen Extra Strength) dapagliflozin propanediol 10 mg 10 mg PO DAILY 05/19/24 06/09/24 History tablet (Farxiga) sacubitril 49 mg-valsartan 51 mg 1 tablet PO BID 05/19/24 06/09/24 History tablet (Entresto) Patient hx anesthesia problems: none Family hx anesthesia problems: none Results Review: All pre-operative results and documents have been reviewed as part of the pre- operative evaluation. [facility] Past Medical History Medical History Cardiac defibrillator in place (~02/22/20) Cardiomyopathy Family history of colon cancer in mother Hepatitis C antibody test negative (12/04/16) HTN (hypertension) Hyperlipidemia Obesity Pacemaker Surgical History Surgical History H/O cardiac radiofrequency ablation H/O: hysterectomy (~03/01/12) BRYON/BSO History of cardiac radiofrequency ablation (RFA) History of nephrectomy, left (~2011) Hx of cholecystectomy (~1980) Family History Family History Mother Hypertension Family history of elevated blood lipids Family history of neuropathy Sibling Hypertension Grandparent Family history of lung cancer Father Family history of lung cancer, Onset Age: 71 Other Family history of cardiovascular disease No family history of cardiovascular disease Social History Social History (Updated 03/24/24 @ 13:21 by Jessica Cerna CMA) Smoking status: Never smoker Second hand tobacco smoke exposure: Yes Additional smoking assessment comments: DENIES ANY FORM OF TOBACCO USE Alcohol intake: current Alcohol use details: 2 DRINKS PER MONTH Substance use: never Substance use type: does not use Do You Feel Safe in your Home?: Yes Lack of Transportation: No Lack of Food: Never True Current Housing: I Have Housing Concerned About Future Housing: No Difficulty Paying Gas/Electric Bills: No Difficulty Paying for Meds: No Currently Unemployed: No Education: High School Diploma/GED Difficulty w/ Childcare or Family Care: No Living arrangements: with family Additional living arrangements comments: Occupation/Education: retired 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 Informed Consent: The patient's anesthetic plan and its attendant risks and benefits were discussed with the patient/family/POA. Questions were solicited and answers provided to the satisfaction of the patient/family/POA.
[2024-06-09] MEDS: ceFAZolin 2 GM/D5W 50 ML 2 GM/50 ML BAG IVPB ×2 (07:35→16:46)
[2024-06-09] MEDS: SODIUM CHLORIDE 0.9% IV 38.7 ML, MORPHINE SULFATE INJ (*CRX) 2 MG, ROPivacaine HCL 1% 2... INFILTRATE (07:55)
[2024-06-09] MEDS: methylPREDNISolone ACETATE 80 MG/ML VIAL IM (07:55)
[2024-06-09] MEDS: ceFAZolin SODIUM 1 GM VIAL 3 GM (08:26)
[2024-06-09] MEDS: ceFAZolin SODIUM 1 GM VIAL 2 GM IV PUSH (09:57)
[2024-06-09] MEDS: TRANEXAMIC ACID 1,000 MG/10 ML AMPUL 1000 MG IV PUSH (09:58)
--- NOTE | 2024-06-09 10:55 | ECG_ITS ---
Test Date: 2024-06-09 11:21:27 Measurements Intervals [place] Rate: 62 P: 64 MN: 146 QRS: -74 QRSD: 126 T: 71 QT: 482 QTc: 490 Interpretive Statements ELECTRONIC ATRIAL PACEMAKER WITH INHIBITION ELECTRONIC VENTRICULAR PACEMAKER BASELINE ARTIFACT- I, II, III, AVR, AVL, V1-V2 NO FURTHER INTERPRETATION IS POSSIBLE ATYPICAL ECG Compared to ECG 05/19/2024 15:18:55 No significant changes Electronically Signed On 06-09-2024 11:29:47 [facility] HEAD by Chang Mancuso D.O.
--- NOTE | 2024-06-09 10:56 | PM.OP ---
Procedure Note - Brief Procedure Note - Brief Date of procedure: 06/09/24 OA bilat knees Procedure performed: Left total knee arthroplasty Surgeon: NANCI Bajwa Findings: 69-year-old female underwent left total knee arthroplasty on 06/09. I was involved in the procedure overall including positioning the patient on the OR table in 1st assisting through the time surgery. Total time spent was 3 hours
--- NOTE | 2024-06-09 10:58 | W.PM.PROC2 ---
Procedure Note - Detailed Date of Procedure 06/09/24 Pre-op Diagnosis OA bilat knees Post-op Diagnosis Same Procedure Performed A cortisone injection right knee, left total knee arthroplasty Surgeon Kasi Anderson MD Anesthesia General Description of Procedure Patient was brought to the operating room and general anesthesia was administered. Upon attaching the eye surgeon it was noted that she appear to be in and out of atrial fibrillation with appearance and disappearance of the P-waves periodically. 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 Her tells me that she does not have history of atrial fibrillation but only the bigeminy so we will consult Cardiology for their opinion on diagnosis and management of possible atrial fibrillation now. Right knee was prepped with ChloraPrep and 80 mg of Depo-Medrol and 4 cc 1% lidocaine were injected into the right knee without difficulty through a lateral parapatellar approach. The left knee was prepped draped usual fashion. She received 2 g of Ancef weight based vancomycin 1 g of TXA preoperatively. A she was noted to have 1 or 2? of hyperextension and medial pseudolaxity preoperatively under anesthesia at the left knee. Limb was exsanguinated tourniquet to 250 mmHg. A 7 in longitudinal midline incision was used and a vastus medialis splitting approach utilized splitting the vastus medialis at the level of the superior pole of the patella. Partial excision of infrapatellar fat pad performed, quadriceps synovectomy performed and suprapatellar fat pad excised. The patella had minimal degenerative changes at the far medial aspect of the medial facet with spurring there which was debrided otherwise the articular cartilage was in good condition I felt most appropriate for non resurfacing. A limited lateral facetectomy was performed. There was severe eburnation and grooving and wear in the medial tibial plateau and the distal medial femoral condyle. Intramedullary guide annamaria inserted on femoral canal after aspiration of canal contents and using the 5 degree valgus cutting bushing, we could see that the the guide rested on the intact articular cartilage of the lateral femoral condyle and was 2 mm shy of the wear area of the medial femoral condyle. Because of her hyperextension I elected therefore to remove 7 mm of bone from the distal femur. This removed 7 laterally and 5 medially. However the depth of the cup relative to the trochlear sulcus looked very normal. Next the tibial plateau was cut. We resected 8 mm of bone from the lateral tibial plateau with a guide at 1 degree of varus because of the severe varus slope of her medial tibial plateau and this did not quite eliminate the defect the medial tibial plateau which persisted posteromedially. Meniscal remnants were excised and the PCL recessed. Flexion gap measured 7 mm medially and 12 mm laterally at 90? in the knee was tighter medially than laterally in extension course. A provisional removal of medial tibial osteophyte was performed without releasing medial capsule at this point. With this done at 90? the knee had a flexion gap of 8 mm medially and 12 mm laterally and in extension the difference in tightness was less than the medial side still being a little bit tighter. The the sizing guide was applied distal femur set at 5? of external rotation which matched Whitesides line. Posterior referencing pinholes were placed. The 62.5 was going to notch little bit so we applied the 65 and made the anterior cut. This confirmed that the 62.5 would notch little bit so we introduced a couple of degrees of flexion slope on the distal femoral cut we applied the 62.5 cutting block pinned it with the spring pins and AP and chamfer cuts were made in this fit nicely with a flush cut with the anterior cortex pinning line to line medially and the trial overhang laterally about 1 mm. Next the tibia was sized to a size 67. There was still a very large amount of overhanging osteophyte medially and posteromedially. This was punched at the proper rotation and a conservative removal of posteromedial osteophyte was performed from the tibial plateau without releasing the medial collateral ligament. On read trialing with the 10 insert we had appropriate stability to anterior drawer at 90? with 1mm medial and lateral opening at 90? and with the arthrotomy towel clipped this tightening the medial side anterior drawer. We lacked about 1 or 2? of extension. There was no play medially. Laterally the knee opened up 3 mm to varus stress. Posterior femoral osteophyte was removed from the medial femoral condyle. Therefore we revisited the removal of posteromedial osteophyte which was performed to about 2 mm from the posteromedial edge of the tibial tray trial which is centrally eliminated the posteromedial defect on the tibia. With this done the knee now came out to full extension with a 0.5 mm of medial opening in extension 3 mm lateral opening negative bounce and this maintained appropriate stability at 90? to anterior drawer and gravity flexion was to 130. Lug holes were drilled through the femoral trial and a step drill was used to make multiple perforations in the tibial plateau and distal femur for cement interdigitation. The bony surfaces were thoroughly irrigated and dried. Two batches of methylmethacrylate were mixed 1 with gentamicin powder cement immediately applied the size 67 vanguard tibia and the 62.5 left CR femoral component. Cement applied to tibia and the tibial component fully seated the cement applied the femur the femoral component fully seated and the knee brought into extension with 11 mm 5 1 insert for cement pressurization. Tourniquet was released at 105 minutes. The after cement hardening excess cement was sought for removed and hemostasis was achieved. We trialed the 10 insert which gave the same stability findings as above. We did trial the 11 and it was too tight to allow any anterior drawer play at 90? and there was a positive bounce in extension. The size 10 insert was placed without difficulty locked the locking pin range of motion stability and patellar tracking reconfirmed. Local anesthetic cocktail was injected in the periarticular soft tissues. She received 2 additional g of Ancef 1 g of TXA. Arthrotomy was closed with 2. Vicryl 1. Unidirectional barbed Stratafix suture the split with 1. Vicryl. Skin closed with 2 subcutaneous Vicryl 3-0 subcuticular Monocryl and glue EBL was 150 cc. There were no complications he was transferred postop recovery room in stable condition. [facility] Billing Surgery - Charge Forward: Surgery Billing (Injection of the right knee is with cortisone, left total knee arthroplasty)
[2024-06-09] MEDS: fentaNYL CITRATE INJ (*CRX) 100 MCG/2 ML VIAL 25 MCG IV PUSH (11:53)
[2024-06-09] MEDS: oxyCODONE HCL (*CRX) 5 MG TAB IR PO ×3 (12:40→20:58)
--- NOTE | 2024-06-09 15:07 | PC.NURSE ---
Surgical add on admission was completed in recovery.
--- NOTE | 2024-06-09 15:07 | PC.NURSE ---
This patient, Jessy Mae, was admitted to Medical Room 345-01. Patient/family oriented to hospital policies and general routines including ID bracelet, bed and alarms, visiting hours, pain management, procedures, bathroom and other care routines, personal items, smoking policy, room service/diet, and visiting hours. Information on how to activate the Rapid Response Team has been discussed. Patient/Family are encouraged to report perceived risks to care and to ask questions if they do not understand what they are told or what they should do.
[2024-06-09] MEDS: SENNA/DOCUSATE SODIUM TABLET 2 TAB PO (16:47)
[2024-06-09] MEDS: ACETAMINOPHEN 325 MG TABLET 650 MG PO ×2 (16:47→20:58)
[2024-06-09] MEDS: SACUBITRIL/VALSARTAN 49-51 MG TABLET 1 TABLET PO (16:47)
[2024-06-09] MEDS: VANCOMYCIN 1,000 MG/NS 250 ML 1,000 MG/250 ML BAG 250 MG IVPB (18:44)
[2024-06-09] MEDS: carvediloL 25 MG TABLET PO (20:58)
[2024-06-09] MEDS: FAMOTIDINE 20 MG TABLET PO (20:58)
[2024-06-10] VITALS: PULSE 75
[2024-06-10 00:03] VITALS: BP 133/56; PULSE 73; RESP 20; TEMP 36.2; O2SAT 99
[2024-06-10] MEDS: oxyCODONE HCL (*CRX) 5 MG TAB IR PO ×4 (00:03→13:17)
[2024-06-10] MEDS: ACETAMINOPHEN 325 MG TABLET 650 MG PO ×4 (00:04→13:16)
[2024-06-10] MEDS: ceFAZolin 2 GM/D5W 50 ML 2 GM/50 ML BAG IVPB ×2 (01:45→09:36)
[2024-06-10 04:00] VITALS: PULSE 63
[2024-06-10 04:22] VITALS: BP 93/68; PULSE 68; RESP 16; TEMP 36.9; O2SAT 98
[2024-06-10 05:52] LABS: Basophils Percent Auto 0.2 % (0.2-1.2); Eosinophils Percent Auto 0.1 % (0-4.4); Hematocrit 36.6 % (37.0-47.0); Hemoglobin 11.8 g/dL (12.0-15.0); Immature Granulocyte Absolute 0.05 K/mm3 (0.00-0.031); Immature Granulocyte Percent A 0.4 % (0-0.5); Lymphocytes Absolute Auto 0.88 K/mm3 (0.9-3.2); Lymphocytes Percent Auto 7.8 % (18.3-44.2); Mean Corpuscular HGB Conc 32.2 g/dl (32-36); Mean Corpuscular Hemoglobin 31.9 pg (26-34); Mean Corpuscular Volume 98.9 fl (80-100); Mean Platelet Volume 10.4 fl (7.4-10.4); Monocytes Absolute Auto 1.3 K/mm3 (0.1-0.6); Monocytes Percent Auto 11.5 % (2.6-8.5); Platelet Count Result 190 k/mm3 (150-375); Red Cell Distribution Width 12.1 % (11.5-14.5); White Blood Count 11.3 K/mm3 (4.5-10.0)
[2024-06-10 06:10] LABS: Anion Gap 9 mmol/L (4-12); Blood Urea Nitrogen 15 mg/dL (7-17); Calcium 8.8 mg/dL (8.4-10.2); Carbon Dioxide 23 mmol/L (22-30); Chloride 104 mmol/L (98-107); Estimated CRCL calculation 62 ml/min; Estimated Glomerular Filt Rate > 60; Glucose 125 mg/dL (65-110); Potassium 4.5 mmol/L (3.4-5.0); Sodium 136 mmol/L (137-145)
[2024-06-10] MEDS: VANCOMYCIN 1,000 MG/NS 250 ML 1,000 MG/250 ML BAG 250 MG IVPB (06:22)
[2024-06-10] MEDS: dexAMETHasone SOD PHOS INJ 10 MG/ML 1 ML VIAL 8 MG IV PUSH (06:55)
--- NOTE | 2024-06-10 08:48 | P.CONIM_ITS ---
Assessment and Plan Assessment and plan (1) Bilateral primary osteoarthritis of knee: Code(s): M17.0 - Bilateral primary osteoarthritis of knee Status: Acute Assessment and Plan: Patient underwent left total knee arthroplasty and cortisone injection of the right knee * Post-op day 1 * Eliquis 2.5 BID DVT prophylaxis * Pain control * PT/OT * SCDs (2) Afib: Code(s): I48.91 - Unspecified atrial fibrillation Status: Acute Assessment and Plan: There was reported patient episodes intermittent atrial fibrillation during surgery * Patient has history of cardiomyopathy with ablation in October of 2019 for last EF reported was 50-55% * Will get follow-up EKG * Patient currently on Eliquis 2.5 b.i.d. for postop DVT prophylaxis * My recommendation would be to follow-up with her strategic alliances manager at [facility] with possible event monitor to evaluate for underlying atrial fibrillation to determine patient is a long-term AC * Continuous cardiac monitoring * Cardiology consulted for further recommendation * ChadsVASC score is 4 will leave this up to Cardiology (3) Cardiomyopathy: Code(s): I42.9 - Cardiomyopathy, unspecified Status: Chronic Assessment and Plan: * Resumed Entresto, Coreg, spironolactone, Farixa (4) HTN (hypertension): Qualifiers: Hypertension type: essential hypertension Qualified Code(s): I10 - Essential (primary) hypertension Code(s): I10 - Essential (primary) hypertension Status: Acute Assessment and Plan: * Resumed Coreg * Reviewed and stable * BP per unit protocol (5) Hyperlipidemia: Code(s): E78.5 - Hyperlipidemia, unspecified Status: Acute Assessment and Plan: * Resumed Atorvastatin Plan Code status: Full code per patient DVT prophylaxis: Eliquis Stress ulcer prophylaxis: Pepcid PT/OT notes: PT/OT evaluation post surgery Disposition: Patient was admitted for elective left total knee arthroplasty tolerated procedure well but did have some reports intermittent atrial fibrillation during procedure cardiology consulted patient currently on Eliquis 2.5 evaluation of patient will need chronic anticoagulation therapy. Thank you for the consult will continue to follow for any other needs. HPI Date of Consult Consult date: 06/10/24 Requesting Physician: Mary Garcia APRN Primary Care Provider: Jazmine Lozano DO Consult Narrative Reason for consult: Medical Management Narrative: Jessy Mae is a 69 year old female admitted for elective Total left knee arthroplasty and cortisone infection of RT knee. Patient is post-op day 1 and tolerated procedure well. It was reported patient appeared to be having intermittant episodes of a atrial fibrillation. Patient does have a history of dilated cardiomyopathy and chronic systolic heart failure with reported low with EF of 20% however EF did improve with GDMT recent EF of 50-55%. Patient had also recently had an ablation her frequent PVC 10/2023 at [facility]. Patient other past medical history includes HLD and HTN. I was consulted for medical management while hospitalized. Will get repeat EKG to evaluate, on eliquis 2.5 BID for DVT prophylaxis post surgery. My recommendation would be for patient to follow-up with her [facility] strategic alliances manager with possible event monitor to determine whether she needs long-term anticoagulated therapy. Patient seen no acute distress reports pain is being managed well. Patient denied CP, palpitations, SOB, nausea, vomiting. Review of Systems 2 Review of Systems: All systems reviewed & are unremarkable except as noted in HPI and below [facility] Past Medical History Medical History (Updated 06/10/24 @ 09:05 by Mary Garcia APRN) Pacemaker Hepatitis C antibody test negative (12/04/16) Cardiac defibrillator in place (~02/22/20) Family history of colon cancer in mother Cardiomyopathy Obesity Hyperlipidemia HTN (hypertension) Surgical History Surgical History (Updated 06/10/24 @ 09:56 by Kasi Anderson MD) H/O cardiac radiofrequency ablation History of cardiac radiofrequency ablation (RFA) History of nephrectomy, left (~2011) H/O: hysterectomy (~03/01/12) BRYON/BSO Hx of cholecystectomy (~1980) Family History Family History Mother Hypertension Family history of elevated blood lipids Family history of neuropathy Sibling Hypertension Grandparent Family history of lung cancer Father Family history of lung cancer, Onset Age: 71 Other Family history of cardiovascular disease No family history of cardiovascular disease Social History Social History Smoking status: Never smoker Second hand tobacco smoke exposure: Yes Additional smoking assessment comments: DENIES ANY FORM OF TOBACCO USE Alcohol intake: never Alcohol use details: 2 DRINKS PER MONTH Substance use: never Substance use type: does not use Other substance usage details: alcohol rarely Do You Feel Safe in your Home?: Yes Lack of Transportation: No Lack of Food: Never True Current Housing: I Have Housing Concerned About Future Housing: No Difficulty Paying Gas/Electric Bills: No Difficulty Paying for Meds: No Currently Unemployed: No Education: High School Diploma/GED Difficulty w/ Childcare or Family Care: No Living arrangements: with family Additional living arrangements comments: Occupation/Education: retired 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 Gender identity (if verbalized by the patient): Female Spiritual care concerns: No Agree to blood products: Yes Meds Home Medications and Allergies Home Medications ?Medication ?Instructions ?Recorded ?Confirmed ?Type carvedilol 25 mg tablet (Coreg) 25 mg PO Q12H 05/02/19 06/09/24 History cholecalciferol (vitamin D3) 50 2,000 unit PO DAILY 05/02/19 06/09/24 History mcg (2,000 unit) tablet calcium 500 mg (as 1 tablet PO DAILY 06/10/19 06/09/24 History carbonate)-vitamin D3 5 mcg (200 unit) tablet (Calcium 500 + D) ferrous sulfate 27 mg iron tablet 27 mg PO DAILY 06/10/19 06/09/24 History tpjcltpb-hwa-jfujv acid 0.4 1 tablet PO DAILY 06/10/19 06/09/24 History mg-lycopene 300 mcg-lutein 250 mcg tablet (Centrum Silver) omega 1-vju-zir-fish oil 1,000 mg 1 cap PO DAILY 06/10/19 06/09/24 History (120 mg-180 mg) capsule (Fish Oil) vitamin B complex (B 1 tablet PO DAILY 06/10/19 06/09/24 History Complex-Vitamin B12 tablet) spironolactone 25 mg tablet 12.5 mg PO DAILY 11/06/23 06/09/24 History atorvastatin 10 mg tablet See Rx Instructions .Route 03/19/24 06/09/24 Rx .COMPLEX #90 tabs acetaminophen 500 mg tablet 1,000 mg PO Q6H PRN pain 05/19/24 06/09/24 History (Acetaminophen Extra Strength) dapagliflozin propanediol 10 mg 10 mg PO DAILY 05/19/24 06/09/24 History tablet (Farxiga) sacubitril 49 mg-valsartan 51 mg 1 tablet PO BID 05/19/24 06/09/24 History tablet (Entresto) acetaminophen 325 mg tablet 650 mg (2 x 325 mg) PO Q4H #100 06/10/24 Rx tabs apixaban 2.5 mg tablet (Eliquis) 2.5 mg PO Q12HR #27 tabs 06/10/24 Rx cefdinir 300 mg capsule 300 mg PO Q12HR #14 caps 06/10/24 Rx oxycodone 5 mg tablet 5 mg PO Q4H PRN Pain Rated 7-10 06/10/24 Rx #40 tabs polyethylene glycol 3350 17 gram 17 g PO QAM #30 ea 06/10/24 Rx oral powder packet (Miralax) sennosides 8.6 mg-docusate sodium 2 tab-cap (2 x 8.6-50 mg) PO BID 06/10/24 Rx 50 mg tablet (Senokot-S) #120 tabs Allergies Allergy/AdvReac Type Severity Reaction Status Date / Time No Known Allergies Allergy Mild Verified 06/09/24 13:23 Vital Signs Vital Signs - 24 hr 06/09/24 10:49 06/09/24 11:05 06/09/24 11:20 Temperature 97.9 F Pulse Rate 80 74 61 Respiratory Rate 18 22 H 16 Blood Pressure 119/58 L 114/61 123/60 Pulse Oximetry 92 99 97 Oxygen Delivery Simple Face Mask Simple Face Mask Simple Face Mask Oxygen Flow Rate 8 8 8 06/09/24 11:35 06/09/24 11:50 06/09/24 12:05 Temperature 97.6 F Pulse Rate 61 60 60 Respiratory Rate 18 18 14 Blood Pressure 119/59 L 118/62 119/68 Pulse Oximetry 95 99 99 Oxygen Delivery Nasal Cannula Nasal Cannula Nasal Cannula Oxygen Flow Rate 2 2 2 06/09/24 12:30 06/09/24 13:22 06/09/24 14:47 Temperature Pulse Rate 63 62 Respiratory Rate 13 15 Blood Pressure 125/54 L 135/62 Pulse Oximetry 100 100 Oxygen Delivery Nasal Cannula Nasal Cannula Room Air Oxygen Flow Rate 2 2 06/09/24 14:52 06/09/24 14:55 06/09/24 15:25 Temperature 97.7 F 97.8 F 97.8 F Pulse Rate 68 74 71 Respiratory Rate 18 18 18 Blood Pressure 138/71 139/82 139/82 Pulse Oximetry 100 99 97 Oxygen Delivery Oxygen Flow Rate 06/09/24 16:00 06/09/24 19:56 06/09/24 20:00 Temperature Pulse Rate 69 79 Respiratory Rate Blood Pressure Pulse Oximetry Oxygen Delivery Room Air Oxygen Flow Rate 06/09/24 20:13 06/10/24 00:00 06/10/24 00:03 Temperature 97.0 F L 97.1 F L Pulse Rate 71 75 73 Respiratory Rate 20 20 Blood Pressure 138/64 133/56 L Pulse Oximetry 99 99 Oxygen Delivery Oxygen Flow Rate 06/10/24 04:00 06/10/24 04:22 Temperature 98.4 F Pulse Rate 63 68 Respiratory Rate 16 Blood Pressure 93/68 L Pulse Oximetry 98 Oxygen Delivery Oxygen Flow Rate Exam 2 Narrative: * GENERAL: Alert and oriented x 3. No acute distress. * EYES: EOMI. No scleral icterus. PERRLA. * HEENT: Moist mucous membranes. * LUNGS: Clear to auscultation bilaterally. No accessory muscle use. * CARDIOVASCULAR: Paced No murmur. No JVD. S1-S2 * ABDOMEN: Soft, non tenderness and non-distended. No palpable masses. * EXTREMITIES: No edema. Non-tender * SKIN: No rashes or lesions. Skin warm, dry. * NEUROLOGIC: No focal neurological deficits. CN II-XII grossly intact * PSYCHIATRIC: Appropriate mood and affect. Good judgement and insight. Results Labs 06/10/24 05:35 06/10/24 05:35 Labs: Short CBC 06/10/24 Range/Units 05:35 WBC 11.3 H (4.5-10.0) K/mm3 Hgb 11.8 L (12.0-15.0) g/dL Hct 36.6 L (37.0-47.0) % Plt Count 190 (150-375) k/mm3 BMP 06/10/24 05:35 Sodium 136 L Potassium 4.5 Chloride 104 Carbon Dioxide 23 BUN 15 D Creatinine 0.80 Glucose 125 H Calcium 8.8 Quality VTE Prophylaxis VTE prophylaxis: pharmacologic ordered Dictation performed by [employer] direct speech recognition software, therefore assistant reading teacher variants and typographical errors may occur. Hospitalist MIPS Advance Care Plan I have confirmed that the patient's Advanced Care Plan is present, code status is documented, or surrogate decision maker is listed in patient medical record.: Yes Medication Reconciliation I have utilized all available resources to obtain, update and review the patients current medications (includes all prescriptions, OTC, herbals, cannabis, and nutritional supplements).: Yes The patient is not eligible for med reconciliation; the patient is in a emergent medical situation where delaying treatment would jeopardize the patients health.: No
--- NOTE | 2024-06-10 09:07 | ECG_ITS ---
Test Date: 2024-06-10 09:49:37 Measurements Intervals [place] Rate: 66 P: 78 CT: 165 QRS: -86 QRSD: 113 T: 64 QT: 431 QTc: 453 Interpretive Statements ATRIAL SENSE- ELECTRONIC VENTRICULAR PACEMAKER BASELINE ARTIFACT- I, II, III, AVR, AVL, AVF, V6 NO FURTHER INTERPRETATION IS POSSIBLE ATYPICAL ECG Compared to ECG 06/09/2024 11:21:27 NO SIGNIFICANT CHANGE Electronically Signed On 06-10-2024 09:58:03 BOTTOM TURNING LATHE TENDER by Chang Mancuso D.O.
[2024-06-10 09:34] VITALS: PULSE 75
[2024-06-10] MEDS: carvediloL 25 MG TABLET PO (09:34)
[2024-06-10] MEDS: EMPAGLIFLOZIN 10 MG TABLET BY MOUTH (09:35)
[2024-06-10] MEDS: APIXABAN 2.5 MG TABLET PO (09:35)
[2024-06-10] MEDS: SACUBITRIL/VALSARTAN 49-51 MG TABLET 1 TABLET PO (09:35)
[2024-06-10] MEDS: ATORVASTATIN 10 MG TABLET PO (09:35)
[2024-06-10] MEDS: CEFDINIR 300 MG CAPSULE PO (09:35)
[2024-06-10] MEDS: SENNA/DOCUSATE SODIUM TABLET 2 TAB PO (09:35)
[2024-06-10] MEDS: CHOLECALCIFEROL 1,000 UNITS TABLET 2000 UNITS PO (09:35)
[2024-06-10] MEDS: SPIRONOLACTONE 12.5 MG TABLET PO (09:35)
[2024-06-10] MEDS: FAMOTIDINE 20 MG TABLET PO (09:35)
--- NOTE | 2024-06-10 09:38 | P.CONCA_ITS ---
Assessment and Plan Assessment and plan (1) Afib: Code(s): I48.91 - Unspecified atrial fibrillation Status: Acute Assessment and Plan: No evidence of atrial fibrillation on EKGs or telemetry. Pacemaker interrogated and no atrial fibrillation detected. Okay for discharge from a cardiac standpoint. (2) HTN (hypertension): Qualifiers: Hypertension type: essential hypertension Qualified Code(s): I10 - Essential (primary) hypertension Code(s): I10 - Essential (primary) hypertension Status: Acute Assessment and Plan: Controlled. (3) Cardiomyopathy: Code(s): I42.9 - Cardiomyopathy, unspecified Status: Chronic Assessment and Plan: EF has recovered. No signs or symptoms of clinical heart failure. Continue current medical regimen without change. Follow up with her established transit bus driver at [facility] as scheduled. (4) Hyperlipidemia: Code(s): E78.5 - Hyperlipidemia, unspecified Status: Acute Assessment and Plan: Continue statin. 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 She is hospitalized following left total knee replacement. Cardiology is consulted because of concern for atrial fibrillation during her operation. EKG's obtained and telemetry do not show any evidence of atrial fibrillation. Patient denies any palpitations, chest pain, shortness of breath. She does not have any history of atrial fibrillation. Feels well at the time of my evaluation and her only complaint is mild fatigue and some soreness in her left knee. Review of Systems 2 Review of Systems: All systems reviewed & are unremarkable except as noted in HPI and below PMFSH Past Medical History Medical History (Updated 06/10/24 @ 09:05 by Mary Garcia APRN) Pacemaker Hepatitis C antibody test negative (12/04/16) Cardiac defibrillator in place (~02/22/20) Family history of colon cancer in mother Cardiomyopathy Obesity Hyperlipidemia HTN (hypertension) Surgical History Surgical History (Updated 06/10/24 @ 09:56 by Kasi Anderson MD) H/O cardiac radiofrequency ablation History of cardiac radiofrequency ablation (RFA) History of nephrectomy, left (~2011) H/O: hysterectomy (~03/01/12) BRYON/BSO Hx of cholecystectomy (~1980) Family History Family History Mother Hypertension Family history of elevated blood lipids Family history of neuropathy Sibling Hypertension Grandparent Family history of lung cancer Father Family history of lung cancer, Onset Age: 71 Other Family history of cardiovascular disease No family history of cardiovascular disease Social History Social History Smoking status: Never smoker Second hand tobacco smoke exposure: Yes Additional smoking assessment comments: DENIES ANY FORM OF TOBACCO USE Alcohol intake: never Alcohol use details: 2 DRINKS PER MONTH Substance use: never Substance use type: does not use Other substance usage details: alcohol rarely Do You Feel Safe in your Home?: Yes Lack of Transportation: No Lack of Food: Never True Current Housing: I Have Housing Concerned About Future Housing: No Difficulty Paying Gas/Electric Bills: No Difficulty Paying for Meds: No Currently Unemployed: No Education: High School Diploma/GED Difficulty w/ Childcare or Family Care: No Living arrangements: with family Additional living arrangements comments: Occupation/Education: 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 Gender identity (if verbalized by the patient): Female Spiritual care concerns: No Agree to blood products: Yes Meds Home Medications and Allergies Home Medications ?Medication ?Instructions ?Recorded ?Confirmed ?Type carvedilol 25 mg tablet (Coreg) 25 mg PO Q12H 05/02/19 06/09/24 History cholecalciferol (vitamin D3) 50 2,000 unit PO DAILY 05/02/19 06/09/24 History mcg (2,000 unit) tablet calcium 500 mg (as 1 tablet PO DAILY 06/10/19 06/09/24 History carbonate)-vitamin D3 5 mcg (200 unit) tablet (Calcium 500 + D) ferrous sulfate 27 mg iron tablet 27 mg PO DAILY 06/10/19 06/09/24 History ygejnpie-dtx-roumb acid 0.4 1 tablet PO DAILY 06/10/19 06/09/24 History mg-lycopene 300 mcg-lutein 250 mcg tablet (Centrum Silver) omega 1-mbb-lli-fish oil 1,000 mg 1 cap PO DAILY 06/10/19 06/09/24 History (120 mg-180 mg) capsule (Fish Oil) vitamin B complex (B 1 tablet PO DAILY 06/10/19 06/09/24 History Complex-Vitamin B12 tablet) spironolactone 25 mg tablet 12.5 mg PO DAILY 11/06/23 06/09/24 History atorvastatin 10 mg tablet See Rx Instructions .Route 03/19/24 06/09/24 Rx .COMPLEX #90 tabs acetaminophen 500 mg tablet 1,000 mg PO Q6H PRN pain 05/19/24 06/09/24 History (Acetaminophen Extra Strength) dapagliflozin propanediol 10 mg 10 mg PO DAILY 05/19/24 06/09/24 History tablet (Farxiga) sacubitril 49 mg-valsartan 51 mg 1 tablet PO BID 05/19/24 06/09/24 History tablet (Entresto) acetaminophen 325 mg tablet 650 mg (2 x 325 mg) PO Q4H #100 06/10/24 Rx tabs apixaban 2.5 mg tablet (Eliquis) 2.5 mg PO Q12HR #27 tabs 06/10/24 Rx cefdinir 300 mg capsule 300 mg PO Q12HR #14 caps 06/10/24 Rx oxycodone 5 mg tablet 5 mg PO Q4H PRN Pain Rated 7-10 06/10/24 Rx #40 tabs polyethylene glycol 3350 17 gram 17 g PO QAM #30 ea 06/10/24 Rx oral powder packet (Miralax) sennosides 8.6 mg-docusate sodium 2 tab-cap (2 x 8.6-50 mg) PO BID 06/10/24 Rx 50 mg tablet (Senokot-S) #120 tabs Allergies Allergy/AdvReac Type Severity Reaction Status Date / Time No Known Allergies Allergy Mild Verified 06/09/24 13:23 Vital Signs Vital Signs - 24 hr 06/09/24 10:49 06/09/24 11:05 06/09/24 11:20 Temperature 36.6 C Pulse Rate 80 74 61 Respiratory Rate 18 22 H 16 Blood Pressure 119/58 L 114/61 123/60 Pulse Oximetry 92 99 97 Oxygen Delivery Simple Face Mask Simple Face Mask Simple Face Mask Oxygen Flow Rate 8 8 8 06/09/24 11:35 06/09/24 11:50 06/09/24 12:05 Temperature 36.4 C Pulse Rate 61 60 60 Respiratory Rate 18 18 14 Blood Pressure 119/59 L 118/62 119/68 Pulse Oximetry 95 99 99 Oxygen Delivery Nasal Cannula Nasal Cannula Nasal Cannula Oxygen Flow Rate 2 2 2 06/09/24 12:30 06/09/24 13:22 06/09/24 14:47 Temperature Pulse Rate 63 62 Respiratory Rate 13 15 Blood Pressure 125/54 L 135/62 Pulse Oximetry 100 100 Oxygen Delivery Nasal Cannula Nasal Cannula Room Air Oxygen Flow Rate 2 2 06/09/24 14:52 06/09/24 14:55 06/09/24 15:25 Temperature 36.5 C 36.6 C 36.6 C Pulse Rate 68 74 71 Respiratory Rate 18 18 18 Blood Pressure 138/71 139/82 139/82 Pulse Oximetry 100 99 97 Oxygen Delivery Oxygen Flow Rate 06/09/24 16:00 06/09/24 19:56 06/09/24 20:00 Temperature Pulse Rate 69 79 Respiratory Rate Blood Pressure Pulse Oximetry Oxygen Delivery Room Air Oxygen Flow Rate 06/09/24 20:13 06/10/24 00:00 06/10/24 00:03 Temperature 36.1 C L 36.2 C L Pulse Rate 71 75 73 Respiratory Rate 20 20 Blood Pressure 138/64 133/56 L Pulse Oximetry 99 99 Oxygen Delivery Oxygen Flow Rate 06/10/24 04:00 06/10/24 04:22 Temperature 36.9 C Pulse Rate 63 68 Respiratory Rate 16 Blood Pressure 93/68 L Pulse Oximetry 98 Oxygen Delivery Oxygen Flow Rate Exam 2 Const: General: comfortable, no acute distress, alert and awake O rientation/consciousness: patient oriented x3 HENMT: Head: normal to inspection Eyes: General: appearance normal, both eyes and all related structures P upils: Equal, round and reactive pupils present Neck: Neck: normal visual inspection, supple and no JVD Carotids: normal carotid upstroke Resp: Effort & Inspection: normal respiratory effort Auscultation: clear to auscultation bilaterally Cardio: Rate: regular rate Rhythm: regular rhythm Heart sounds: S1 normal heart sound present, S2 normal heart sound present and no murmurs GI: Auscultation: normal bowel sounds Skin: General skin exam: normal color Neuro: General: patient oriented x3 Cranial nerves: Yes Equal, round and reactive pupils present Extrem: General: normal to inspection Psych: Appearance: grossly normal Mental Status: mental status grossly normal Results Labs and Meds 06/10/24 05:35 06/10/24 05:35 Lab results: CBC 06/10/24 Range/Units 05:35 WBC 11.3 H (4.5-10.0) K/mm3 RBC 3.70 L (4.2-5.4) M/mm3 Hgb 11.8 L (12.0-15.0) g/dL Hct 36.6 L (37.0-47.0) % Plt Count 190 (150-375) k/mm3 Lymph # (Auto) 0.88 L (0.9-3.2) K/mm3 [place] # (Auto) 1.3 H (0.1-0.6) K/mm3 Eos # (Auto) 0.0 (0-0.3) K/mm3 Baso # (Auto) 0.0 (0.0-0.1) K/mm3 Comprehensive Metabolic Panel 06/10/24 Range/Units 05:35 Sodium 136 L (137-145) mmol/L Potassium 4.5 (3.4-5.0) mmol/L Chloride 104 (98-107) mmol/L Carbon Dioxide 23 (22-30) mmol/L BUN 15 D (7-17) mg/dL Creatinine 0.80 (0.7-1.0) mg/dL Glucose 125 H (65-110) mg/dL Calcium 8.8 (8.4-10.2) mg/dL Intake and Output 06/09/24 06/10/24 06/10/24 23:59 07:59 15:59 Intake Total 780 500 Output Total 1300 Balance 780 -800 Intake: IV 300 300 Vancomycin 1,000 mg/Ns 250 ml 1 250 250 ,000 mg In 250 ml @ 250 mls/hr IVPB Q12H ANDRES Rx#:[id number] ceFAZolin 2 GM/D5W 50 ML 2 gm 50 50 In 50 ml @ 100 mls/hr IVPB Q8H ANDRES Rx#:[id number] Oral 480 200 Output: Urine 1300 Other: # Unmeasured Voids 1
--- NOTE | 2024-06-10 09:40 | WPDANESPN ---
Anes - Prog Note Post-Op Date/Time: 06/10/24 09:40 Cardiovascular status: normal Respiratory status: normal and other (IS instruction provided) Airway patency: baseline Mental status: baseline Post-Op hydration status: normal Vital Signs: Last Vital Signs Temp 36.9 C 06/10/24 04:22 Pulse 75 06/10/24 09:34 Resp 16 06/10/24 04:22 BP 93/68 L 06/10/24 04:22 Pulse Ox 98 06/10/24 04:22 O2 Del Method Room Air 06/09/24 19:56 O2 Flow Rate 2 06/09/24 13:22 Pain Score (VAS): 06/02 I/O: Intake & Output 06/09/24 06/10/24 06/10/24 23:59 07:59 15:59 Intake Total 780 500 Output Total 1300 Balance 780 -800 Laboratory Tests 06/10/24 05:35 06/10/24 05:35 06/10/24 05:35 WBC 11.3 H RBC 3.70 L Hgb 11.8 L Hct 36.6 L MCV 98.9 MCH 31.9 MCHC 32.2 RDW 12.1 Plt Count 190 MPV 10.4 Immature Gran % (Auto) 0.4 Neut % (Auto) 80.0 H Lymph % (Auto) 7.8 L [place] % (Auto) 11.5 H Eos % (Auto) 0.1 Baso % (Auto) 0.2 Lymph # (Auto) 0.88 L [place] # (Auto) 1.3 H Eos # (Auto) 0.0 Baso # (Auto) 0.0 Abs Immat Gran (auto) 0.05 H Absolute Neuts (auto) 9.0 H Absolute Nucleated RBC 0.000 Nucleated RBC % 0.0 Sodium 136 L Potassium 4.5 Chloride 104 Carbon Dioxide 23 Anion Gap 9 BUN 15 D Creatinine 0.80 Estim Creat Clear Calc 62 Estimated GFR > 60 Glucose 125 H Calcium 8.8 Post-procedural complaints: none Patient Feedback: Patient satisfied with anesthetic care.
[2024-06-10 09:45] VITALS: PULSE 70
--- NOTE | 2024-06-10 09:55 | PM.PNORT ---
Progress Note: A&P Assessment and Plan (1) History of left knee replacement: Code(s): Z96.652 - Presence of left artificial knee joint Status: Acute Assessment and Plan: Patient is doing well following her left total knee replacement and cortisone injection right knee yesterday. She has more pain this morning. The periarticular nerve block has worn off and we are not using ongoing nonsteroidal anti-inflammatory medication because of her history of CHF and 1 kidney due to prior nephrectomy. We will schedule around the clock Tylenol and oxycodone for pain control. She received a 2nd dose of dexamethasone this morning which will help. On exam today she is neurologically intact to the left leg. She is barely able do a straight leg raise but able. There is no blood on the dressing. No significant swelling. Laboratory studies show hemoglobin 11.8 white count 11.3 platelets [id number]. Creatinine clearance is 62. Creatinine 0.8. BUN 15. She was started on Eliquis 2.5 mg twice daily for DVT prophylaxis at 9:00 a.m. this morning. During surgery the anesthesiologist noted that the P waves or intermittently disappearing on the rhythm strip. This raise the suspicion of possible atrial fibrillation. Patient has no history of atrial fibrillation. She does have a pacemaker and EKG this morning suggested that there was atrial pacing from the pacemaker which may explain the absence of the P waves intermittently. I have spoken with Dr. Winkler from the cardiology department and she is going to order an interrogation of the pacemaker unit which can be done apparently on site by a nurse applying a interrogation unit to the patient's chest to transmit the information to [employer] and this will be in place of having to do a Holter monitor to see if she has intermittent atrial fibrillation. This should show if there has been any atrial fibrillation yesterday or otherwise. Patient's heart rate has been in the 60s to 70s postop and her blood pressure in the 130s over 80s. She has been very stable. If the interrogation shows no atrial fibrillation and she is felt cleared to be discharged from the cardiology standpoint we will discharge her today. I was advised that if there is evidence of atrial fibrillation intermittently then she may require long-term anticoagulation with the higher dose of Eliquis. We plan to use Eliquis 2.5 mg twice daily for 2 weeks after surgery for DVT prophylaxis. Subjective Subjective Date/Time Seen: 06/10/24 09:55 Objective Data Vital Signs Vital Signs: Vital Signs - 24 hr 06/09/24 10:49 06/09/24 11:05 06/09/24 11:20 Temperature 36.6 C Pulse Rate 80 74 61 Respiratory Rate 18 22 H 16 Blood Pressure 119/58 L 114/61 123/60 Pulse Oximetry 92 99 97 Oxygen Delivery Simple Face Mask Simple Face Mask Simple Face Mask Oxygen Flow Rate 8 8 8 06/09/24 11:35 06/09/24 11:50 06/09/24 12:05 Temperature 36.4 C Pulse Rate 61 60 60 Respiratory Rate 18 18 14 Blood Pressure 119/59 L 118/62 119/68 Pulse Oximetry 95 99 99 Oxygen Delivery Nasal Cannula Nasal Cannula Nasal Cannula Oxygen Flow Rate 2 2 2 06/09/24 12:30 06/09/24 13:22 06/09/24 14:47 Temperature Pulse Rate 63 62 Respiratory Rate 13 15 Blood Pressure 125/54 L 135/62 Pulse Oximetry 100 100 Oxygen Delivery Nasal Cannula Nasal Cannula Room Air Oxygen Flow Rate 2 2 06/09/24 14:52 06/09/24 14:55 06/09/24 15:25 Temperature 36.5 C 36.6 C 36.6 C Pulse Rate 68 74 71 Respiratory Rate 18 18 18 Blood Pressure 138/71 139/82 139/82 Pulse Oximetry 100 99 97 Oxygen Delivery Oxygen Flow Rate 06/09/24 16:00 06/09/24 19:56 06/09/24 20:00 Temperature Pulse Rate 69 79 Respiratory Rate Blood Pressure Pulse Oximetry Oxygen Delivery Room Air Oxygen Flow Rate 06/09/24 20:13 06/10/24 00:00 06/10/24 00:03 Temperature 36.1 C L 36.2 C L Pulse Rate 71 75 73 Respiratory Rate 20 20 Blood Pressure 138/64 133/56 L Pulse Oximetry 99 99 Oxygen Delivery Oxygen Flow Rate 06/10/24 04:00 06/10/24 04:22 06/10/24 09:34 Temperature 36.9 C Pulse Rate 63 68 75 Respiratory Rate 16 Blood Pressure 93/68 L Pulse Oximetry 98 Oxygen Delivery Oxygen Flow Rate Intake/Output Intake/Output: Intake & Output 06/07/24 06/08/24 06/09/24 06/10/24 23:59 23:59 23:59 23:59 Intake Total 1030 500 Output Total 1300 Balance 1030 -800 Meds/Results Medications: Active Medications Generic Name Dose Route Start Last Admin Trade Name Freq PRN Reason Stop Dose Admin Acetaminophen 650 mg 06/09/24 17:00 06/10/24 09:34 Acetaminophen 325 Mg Tablet PO 650 mg Q4H ANDRES Administration Apixaban 2.5 mg 06/10/24 09:00 06/10/24 09:35 Apixaban 2.5 Mg Tablet PO 06/21/24 21:01 2.5 mg Q12HR ANDRES Administration Atorvastatin Calcium 10 mg 06/10/24 09:00 06/10/24 09:35 Atorvastatin 10 Mg Tablet PO 10 mg DAILY ANDRES Administration Carvedilol 25 mg 06/09/24 21:00 06/10/24 09:34 Carvedilol 25 Mg Tablet PO 25 mg Q12HR ANDRES Administration Cefdinir 300 mg 06/10/24 09:00 06/10/24 09:35 Cefdinir 300 Mg Capsule PO 300 mg Q12HR ANDRES Administration Diphenhydramine HCl 25 mg 06/09/24 14:37 Diphenhydramine Hcl Inj 50 Mg/Ml Vial IV PUSH Q6H PRN Itching Empagliflozin 10 mg 06/10/24 09:00 06/10/24 09:35 Empagliflozin 10 Mg Tablet BY MOUTH 10 mg DAILY NADRES Administration Famotidine 20 mg 06/09/24 21:00 06/10/24 09:35 Famotidine 20 Mg Tablet PO 20 mg Q12HR ANDRES Administration Cefazolin Sodium 2 gm in 50 mls @ 100 mls/hr 06/09/24 18:00 06/10/24 09:36 Ancef 2 Gm/D5w 50 Ml IVPB 06/10/24 10:29 100 mls/hr Q8H ANDRES Administration Morphine Sulfate 2 mg 06/09/24 14:37 Morphine Sulfate (*Crx) 2 Mg/Ml Inj IV PUSH Q2H PRN Breakthrough Pain Rated 4-6 or NPO Naloxone HCl 0.1 mg 06/09/24 14:37 Naloxone Hcl 0.4 Mg/Ml Vial IV PUSH Q2M PRN Opiate Reversal Ondansetron HCl 4 mg 06/09/24 14:37 Ondansetron Inj 4 Mg/2 Ml Vial IV PUSH Q4H PRN Nausea And Vomiting Oxycodone HCl 5 mg 06/09/24 12:29 06/09/24 12:40 Oxycodone Hcl (*Crx) 5 Mg Tab Ir PO 5 mg Q4H PRN Administration Pain Rated 7-10 Oxycodone HCl 5 mg 06/09/24 17:00 06/10/24 09:34 Oxycodone Hcl (*Crx) 5 Mg Tab Ir PO 5 mg Q4H ANDRES Administration Polyethylene Glycol 17 gm 06/10/24 09:00 06/10/24 09:38 Polyethylene Glycol 3350 17 Gm Powd.Pack PO Not Given QAM ANDRES Sacubitril/Valsartan 1 tablet 06/09/24 17:00 06/10/24 09:35 Sacubitril/Valsartan 49-51 Mg Tablet PO 1 tablet BID ANDRES Administration Senna/Docusate Sodium 2 tab 06/09/24 17:00 06/10/24 09:35 Senna/Docusate Sodium Tablet PO 2 tab BID ANDRES Administration Spironolactone 12.5 mg 06/10/24 09:00 06/10/24 09:35 Spironolactone 12.5 Mg Tablet PO 12.5 mg DAILY ANDRES Administration Vitamin D 2,000 units 06/10/24 09:00 06/10/24 09:35 Cholecalciferol 1,000 Units Tablet PO 2,000 units DAILY ANDRES Administration Radiology Results: ITS Impressions Knee X-Ray 06/09/24 11:01 IMPRESSION: 1. Left total knee arthroplasty, negative for postoperative purposes. Labs Labs: Laboratory Results - last 24 hr 06/10/24 05:35 WBC 11.3 H RBC 3.70 L Hgb 11.8 L Hct 36.6 L MCV 98.9 MCH 31.9 MCHC 32.2 RDW 12.1 Plt Count 190 MPV 10.4 Immature Gran % (Auto) 0.4 Neut % (Auto) 80.0 H Lymph % (Auto) 7.8 L [place] % (Auto) 11.5 H Eos % (Auto) 0.1 Baso % (Auto) 0.2 Lymph # (Auto) 0.88 L [place] # (Auto) 1.3 H Eos # (Auto) 0.0 Baso # (Auto) 0.0 Abs Immat Gran (auto) 0.05 H Absolute Neuts (auto) 9.0 H Absolute Nucleated RBC 0.000 Nucleated RBC % 0.0 Sodium 136 L Potassium 4.5 Chloride 104 Carbon Dioxide 23 Anion Gap 9 BUN 15 D Creatinine 0.80 Estim Creat Clear Calc 62 Estimated GFR > 60 Glucose 125 H Calcium 8.8
== END 2024-06-10 13:55 | disposition home or self-care (01) ==
LOC: ANHSURGERY 05:55 → ANH3MED 14:49
PROVIDERS: Physician Assistant Surgical; PCP Family Medicine; Visit Provider Orthopaedic Surgery
PROC: (CPT 27447; principal; 2024-06-09 07:30)
DX: M17.0 Bilateral primary osteoarthritis of knee (principal); M25.762 Osteophyte, left knee; I10 Essential (primary) hypertension; E78.5 Hyperlipidemia, unspecified; E66.9 Obesity, unspecified; Z68.33 Body mass index [BMI] 33.0-33.9, adult; Z79.84 Long term (current) use of oral hypoglycemic drugs; Z98.890 Other specified postprocedural states; Z90.49 Acquired absence of other specified parts of digestive tract; Z95.0 Presence of cardiac pacemaker; Z86.79 Personal history of other diseases of the circulatory system; Z80.0 Family history of malignant neoplasm of digestive organs; Z80.1 Family history of malignant neoplasm of trachea, bronchus and lung; Z82.49 Family history of ischemic heart disease and other diseases of the circulatory system
CPT/HCPCS: 27447; 20610; 36415; 73560; 80048; 85025; 86850; 86900; 86901; 93005; 97110; 97116; 97161; 97165; 97530; 97535; A9270; C1713; C1776; J0171; J0690; J1010; J1100; J2003; J2250; J2270; J2405; J2704; J2795; J3010; J3370; J7120

== ENCOUNTER 2024-07-15 10:00 | Outpatient (RCR) | payer MEDICARE, SELFPAY ==
--- NOTE | 2024-06-12 11:03 | OPREHPOC ---
Outpatient Therapy Plan of Care This is a Multidisciplinary Plan of Care that may contain components documented by all disciplines (PT, OT, and ST.) PT Problem 1 PT Problem #1 Knowledge Deficit PT Goal 1 Goal / Goal Update *iindep with HEP Target Visit 10 PT Goal 2 Goal / Goal Update * correct gait pattern and use of assistive device Target Visit 10 PT Problem 2 PT Problem #2 Impaired Flexibility PT Goal 1 Goal / Goal Update *increase L knee active ROM to improve gait and sit/stand transfer skill: sitting active ROM 0'- 115' Target Visit 10 PT Problem 3 PT Problem #3 Impaired Strength PT Goal 1 Goal / Goal Update *increase strength of L hip/knee to improve gait and transfer skills * sit/stand without use of UE x 5 reps Target Visit 10 PT Goal 2 Goal / Goal Update * transfer sit to supine without use of UE on L thigh Target Visit 5 PT Problem 4 PT Problem #4 Impaired Functional Mobility PT Goal 1 Goal / Goal Update *pt up/down 12 steps with one hand railing and alternate step pattern, indep Target Visit 10 PT Goal 2 Goal / Goal Update * 2 minute walking test distance of 350' with cane Target Visit 10
--- NOTE | 2024-06-12 11:03 | PTOPEVAL1 ---
Assessment and note entered by Anastasiia Mitchell, PT Evaluation Information Assessment Status Evaluation ICD-10 Condition Codes (PT) Pain in left knee M25.562,Encounter for other orthopedic aftercare Z47.89,Aftercare following joint replacement surgery Z47.1 Other ICD-10 Condition Codes ( Z96.652 L TKR PT) Onset 06-09-24 Subjective Information since surgery, doing the exercises at home, using wheeled walker; daughter and helping her; Activity: prior to surgery, used cane PRN for distances; retired; indep with all activities; 6 steps into home, have full flight for upstairs and basement; bed room is on main level of home; laundry in basement; Goal: return to being able to help her mom, who lives alone and pt does assist her with home tasks get knee better Reported Pain Level Pain Score Self Report Additional Pain Score Comments pain range in past few days 0-8/10; increase pain to 8/10 with getting into car today; educated on correct transfer into passenger seat of car decrease pain:oxycodone and tylenol sleeping is OK- taking pain meds Assessment PT Clinical Summary Gala is s/p L TKR on 06-09-24. She is at home with her and daughter also assisting. LE functional scale rating of 76% limitation in activity level. Prior to surgery, she was indep with all mobility and self care tasks, and did not use assistive device. Medical history includes: pacemaker and OA of R knee. With the evaluation: she is using a wheeled walker for 2 minute walking test distance of 245'; stairs with single step pattern and both hands on one hand railing; requires use of her L UE to move L LE from sitting to supine position; weakness of L LE, unable to perform supine SLR; she is motivated and has been doing the exercises at home. Skilled PT services are indicated for modalities to decrease pain; therapeutic exercises to increase ROM and strength of L knee, progression of gait and balance activity with education for HEP and gait to lesser device. Plan of Care Interventions Intermittent Compression Pump,Manual Therapy,Neuro Re-education,Patient/Caregiver Education, Therapeutic Activities,Therapeutic Exercise,Other Other Interventions taping// NO stim-have pacemaker PT Services Indicated Yes Treatment Frequency and 2x/wk for 10 visits Duration These treatments will address the objective and functional deficits as defined above. The patient will be advanced safely and appropriately in order for the patient to progress towards his/her prior level of function. Additional exercises will be introduced and as well as a comprehensive home exercise program upon discharge, if needed, ?to ensure carryover of functional gains achieved in the clinic. This treatment plan has been reviewed and agreement upon by the patient.
--- NOTE | 2024-07-01 09:03 | PCPTNOTE ---
Canceled, ill. AKS
--- NOTE | 2024-07-15 10:49 | PTOPDC ---
Assessment and note entered by Anastasiia Mitchell, PT Assessment Status Discharge ICD-10 Condition Codes (PT) Pain in left knee M25.562,Encounter for other orthopedic aftercare Z47.89,Aftercare following joint replacement surgery Z47.1 Other ICD-10 Condition Codes ( Z96.652 L TKR PT) Onset 06-09-24 Subjective Information not using the cane; have been doing the exercises at home; am very pleased with how my knee is doing; feel like ready to be done with therapy. Reported Pain Level Pain Score Self Report Additional Pain Score Comments pain range of the past week 0-2/10; increase pain: walking the dog and she pulled the leash; staying still too long- first wake up in AM decrease pain: rest, sit down is not taking any pain meds Assessment PT Clinical Summary Gala has received 9 PT sessions. Compared to the initial eval, she has improved in all areas: pain rating of 0-2/10; not using an assistive device; use of one hand railing for 12 steps with alternating pattern; self assessment with LE functional scale rating of 36% limitation in activity level; 2 minute walking test distance of 375'; good strength of L hip and knee. Education for HEP completed. Active ROM of L knee in sitting 0'- 125'. The goals were achieved. Discharge PT. She is to continue her HEP, and to increase her activity level as tolerated. Plan of Care PT Services Indicated No
== END 2024-07-15 11:17 | disposition home or self-care (01) ==
LOC: ANHPT 10:00
PROVIDERS: PCP Family Medicine; Visit Provider Orthopaedic Surgery
DX: M17.12 Unilateral primary osteoarthritis, left knee (principal); Z96.652 Presence of left artificial knee joint
CPT/HCPCS: 97110; 97116; 97161; 97530

== ENCOUNTER 2024-09-17 00:59 | Day surgery (SDC) | payer MEDICARE, SELFPAY ==
[2024-09-05 14:17] VITALS: BMI 32.1
--- NOTE | 2024-09-12 11:34 | PC.NURSE ---
Spoke with patient regarding Eliquis and she states she is not on Eliquis. After looking she was on it briefly after her knee surgery in .
--- OUTSIDE RECORDS SUMMARY | 2024-09-17 01:02 | XMS_ITS | Referral Summary ---
Author Organization [facility] D Address [address] [place] [address] Care Team Providers Care Destination Specialist Name Role Phone Jazmine Lozano Primary Care Provider +1- [phone] Encounters Date Type Department Care Team Description 09/11/2024 Telephone [facility] Cardiology [address] Advanced Medicine [address]th [place] [address] [place] [address] Henrique Zuluaga MD 09/11/2024 Telephone [facility] Cardiology [address] [facility] 8th [place] [address] [place] [address] Kalee Murcia MD 06/23/2024 Orders Only [facility] Cardiology [address] [place] [address] Delmi Winkler NP 06/22/2024 Orders Only [facility] Cardiology [address] [facility] 8th [place] [address] [place] [address] Henrique Zuluaga MD from Last 3 Months Allergies No known active allergies Medications calcium carbonate-vitami n D3 (CALCIUM 600 + D,3,) 600 mg calcium- 200 unit capsule 0 0 07/10/2014 Active multivitamin tablet tablet take 1 tablet by oral route every day with food 0 0 07/10/2014 Active dnhql-6m-gxz-epa -fish oil (OMEGA 3) 350-400 mg capsule 0 0 07/10/2014 Active ferrous sulfate (IRON) 325 mg (65 mg iron) capsule, extended release 0 0 07/10/2014 Active cholecalciferol (VITAMIN D3) 2,000 unit capsule 0 0 10/14/2012 Active cyanocobalamin, vitamin B-12, 5,000 mcg tablet, sublingualIndica tions:Prevention of Vitamin B12 Deficiency [address] 1 tablet under the tongue nightly Active atorvastatin (LIPITOR) 10 mg tabletIndication s:hyperlipidemia Take 1 tablet (10 mg total) by mouth nightly Active carvediloL (COREG) 25 mg tablet TAKE 1 TABLET BY MOUTH TWICE DAILY WITH MEALS 180 tablet 3 03/07/2024 Active dapagliflozin propanediol (FARXIGA) 10 mg tablet Take 1 tablet (10 mg total) by mouth daily 21 tablet 05/22/2024 Active dapagliflozin propanediol (FARXIGA) 10 mg tablet Take 1 tablet (10 mg total) by mouth daily for 14 days 14 tablet 06/11/2024 Active spironolactone (ALDACTONE) 25 mg tablet TAKE 1 TABLET BY MOUTH DAILY 90 tablet 3 06/12/2024 Active Entresto 49-51 mg tablet TAKE 1 TABLET BY MOUTH TWICE DAILY 180 tablet 3 06/16/2024 Active Hospital, Clinic, or Other Facility Administered Medication Ordered Dose Route Frequency Start Date End Date Status perflutren protein-a (OPTISON) 3 mL in sodium chloride 0.9% 8 mL syringe 1 - 8 mL IV Once in imaging 12/19/2023 Active Active Problems Problem Noted Date Diagnosed Date PVC (premature ventricular contraction) 08/09/19 Assessment & Plan (10/23/2023 10:18 AM CDT): [...] statin Assessment & Plan (03/01/2022 2:46 PM SECURITY PROFESSIONALS): Well controlled with an LDL of 16 mg/dL. Continue low intensity Lipitor. Assessment & Plan (02/25/2021 11:44 AM CDT): She is on chronic lipid-lowering therapy. LDL 41 on 09/09/2020. Continue atorvastatin 10 mg daily. Assessment & Plan (09/10/2020 8:21 AM CDT): On low-dose atorvastatin, LDL is 41. Nonfasting triglycerides are elevated. Continue atorvastatin 10 mg daily. Presence of cardiac resynchr onization therapy defibrillator (MEDICAL RECORDS SUPERVISOR-D) 03/04/2020 Overview (03/04/2020): Medtronic Randolph HF QUAD MEDICAL RECORDS SUPERVISOR-D implanted on 03/03/20 for NICM/CHF/LBBB. Toney/Victor Manuel Membreno Assessment & Plan (02/25/2021 11:45 AM CDT): Monitored through the arrhythmia Center. Assessment & Plan (09/10/2020 8:20 AM CDT): Followed through Dr. Ziegler. Chronic systolic heart failure 02/23/2020 Assessment & Plan (02/25/2021 11:43 AM CDT): [...] meds Assessment & Plan (03/01/2022 2:45 PM SECURITY PROFESSIONALS): With restored LV function. Continue Altace and [...] Altace. 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 LV ejection [...] Jessa FELIX, Jose MAYER, Augustus ROGER, [place]. ACC/AHA/HRS 2008 guidelines for device-based therapy of cardiac rhythm abnormalities: a report of the [place] College of Cardiology/Citizen [place] Heart Association Task Force on Practice Guidelines [...] Enoch MARTINEZ, Elizabeth MARCOS, Page RL, Jessa FEILX, Jose MAYER, Augustus ROGER, [place] 2012 ACCF/AHA/HRS focused update incorporated into the ACCF/AHA/HRS 2008 guidelines for device-based therapy of cardiac rhythm abnormalities: a report of the [place] College of Cardiology Foundation/Citizen [place] Heart Association Task Force on Practice Guidelines and the Heart Rhythm Society. J Am Rudy Cardiol 2013;61:e6-75. Class I: MEDICAL RECORDS SUPERVISOR is indicated for patients who have LVEF [...] on file Legal Sex Female 4:02 PM SECURITY PROFESSIONALS Gender Identity Female 02/13/2020 7:45 AM CDT Sexual Orientation Straight 02/13/2020 7: 45 AM CDT Last Filed Vital Signs Vital Sign Reading Time Taken Comments Blood Pressure 129/71 05/22/2024 10:15 AM SEC[employer]ITY PROFESSIONALS Pulse 67 05/22/2024 10:15 AM [employer]ITY PROFESSIONALS Temperature 36.6 C (97.9 F) 10/23/2023 6:40 AM CDT Respiratory Rate 17 10/23/2023 6:40 AM CDT Oxygen Saturation 98% 04/25/2024 9:42 AM SECURITY PROFESSIONALS Inhaled Oxygen Concentration - - Weight 85.7 kg (189 lb) 04/25/2024 9:42 AM SEC[employer]ITY PROFESSIONALS Height 162.6 cm (5' 4) 04/25/2024 9:42 AM SECURITY PROFESSIONALS Body Mass Index 32.44 04/25/2024 9:42 AM SEC[employer]ITY PROFESSIONALS Plan of Treatment Not on file Medical Devices Implanted Type Area Hop Worker Device Identifier Shelf Expiration Date Model / Serial / Lot Medtronic Inc [id number] Cardiac Randolph Hf 2 Chamber Df4 Inline Cnctr Is4 - [id number] - [id number] Implanted:Qty: 1 on 03/03/2020 by True Ziegler MD at [facility] ICD Medtronic Inc [id number] 07/04/2021 DTP [id number] / [id number] [id number] / Medtronic Cardiac Rhythm Mgmt [id number] Sprint Quattro Secure 62cm Tripolar Screw In Extendable - [id number] - [id number] Implanted:Qty: 1 on 03/03/2020 by True Ziegler MD at [facility] Lead Medtronic Inc [id number] 11/11/2021 [id number] / [id number] / Medtronic Cardiac Rhythm Mgmt 5076-52 Capsurefix Novus 6.2fr 2mm 52cm Bipolar Screw In Implantable Latex Free - [id number] - [id number] Implanted:Qty: 1 on 03/03/2020 by True Ziegler MD at [facility] Lead Medtronic Inc [id number] 12/23/2021 507 6-52 / [id number] / Medtronic Inc [id number] Lead Attain Stability Quad Mri Surescan Lv 88mm - [id number] - [id number] Implanted:Qty: 1 on 03/03/2020 by True Ziegler MD at [facility] Lead Medtronic Inc [id number] 08/28/2021 479 888 / [id number] / Cardiva Medical Inc Device Vascular Closure Femoral Artery Bioabsorbable Dual Method Vascade 6-7fr Collagen [id number] - [id number] - [id number] Implanted:Qty: 1 on 10/22/2023 by Henrique Zuluaga MD at [facility] Vascular Closure Device [employer] Inc 07/24/2025 700-580I -05U / [id number] / [id number] Cardiva Medical Inc Vascade Mvp 6-12fr Venous Closure [id number] - [id number] - [id number] Implanted:Qty: 1 on 10/22/2023 by Henrique Zuluaga MD at [facility] Vascular Closure Device [employer] 06/26/2025 800-612C -10U / [id number] / [id number] [employer]iva Medical Inc Vascade Mvp 6-12fr Venous Closure [id number] - [id number] - [id number] Implanted:Qty: 1 on 10/22/2023 by Henrique Zuluaga MD at [facility] Vascular Closure Device [employer] Inc 06/26/2025 800-612C -10U / [id number] / [id number] Procedures Procedure Name Priority Date/Time Associated Diagnosis Comments DEVICE CHECK - REMOTE Routine 06/22/2024 9:09 PM SECURITY PROFESSIONALS from Last 3 Months Results * DEVICE CHECK - REMOTE (06/22/2024 9:09 PM SECURITY PROFESSIONALS) Anatomical Region Laterality Modality Other 06/22/2024 9:09 PM [employer]ITY PROFESSIONALS Narrative 07/01/2024 2:18 PM CDT Interpretation Summary: Battery and Leads (BL) Normal parameters noted on battery and lead(s) --- 6.8 yrs remaining longevity (implanted 2019). Lead impedance, sensing, and threshold trends stable and appropriate. No short V-V intervals. Presenting Rhythm (MT) Atrial Sensing-Ventricular Pacing (-FUNERAL PRE ARRANGEMENT SPECIALIST) --- /FUNERAL PRE ARRANGEMENT SPECIALIST 66 to 68 bpm. Arrhythmic events (AE) No new arrhythmic events in monitoring period --- Since 06/10/24: No AHR or VHR episodes. Transmission Information (TI) Device Summary Report Follow Up (FU) Patient's primary treating physician will be apprised of findings Procedure Note Henrique Zuluaga MD - 07/01/2024 Interpretation Summary: Battery and Leads (BL) Normal parameters noted on battery and lead(s) --- 6.8 yrs remaininglongevity (implanted 2019). Lead impedance, sensing, and thresholdtrends stable and appropriate. No short V-V intervals. Presenting Rhythm (MT) Atrial Sensing-Ventricular Pacing (-FUNERAL PRE ARRANGEMENT SPECIALIST) --- /FUNERAL PRE ARRANGEMENT SPECIALIST 66 to 68 bpm. Arrhythmic events (AE) No new arrhythmic events in monitoring period --- Since 06/10/24: No AHRor VHR episodes. Transmission Information (TI) Device Summary Report Follow Up (FU) Patient's primary treating physician will be apprised of findings Henrique Zuluaga MD CV CARDIAC SERVI RAQUEL PROCEDURES Final Result from Last 3 Months Insurance MEDICARE [facility] Member Subscriber Plan / Payer (Ef fective 2022-Present) Name:Jessy Mae Relation to Subscriber:Self Name:Jessy Mae Payer ID:[id number] Group ID:Not on file Type:[facility] Address: [facility] [id number] [place] [address] MEDICARE [facility] MEDICARE [facility] MEDICARE AARP Advance Directives For more information, please contact: [phone] * Full Code (Latest Code Status on File) Date Activated Date Inactivated Comments 10/22/2023 4:46 PM 10/23/2023 3:25 PM Care Teams Destination Specialist Relationship Specialty Start Date End Date Jazmine Lozano DO PCP - General Family Medicine 01/30/20
--- OUTSIDE RECORDS SUMMARY | 2024-09-17 01:02 | XMS_ITS | Clinical Summary ---
Author Organization [facility] D Address [address] [place] [address] Care Team Providers Care Contracts Attorney Name Role Phone Mirna Lozanona Debby Primary Care Provider +1- [phone] Allergies No known active allergies Medications calcium carbonate-vitami n D3 (CALCIUM 600 + D,3,) 600 mg calcium- 200 unit capsule 0 0 07/10/2014 Active multivitamin tablet tablet take 1 tablet by oral route every day with food 0 0 07/10/2014 Active oxdmm-1o-ynw-epa -fish oil (OMEGA 3) 350-400 mg capsule [...] statin Assessment & Plan (03/01/2022 2:46 PM MCAT TUTOR): Well controlled with an LDL of 16 mg/dL. Continue low intensity Lipitor. Assessment & Plan (02/25/2021 11:44 AM CDT): She is on chronic lipid-lowering therapy. LDL 41 on 09/09/2020. Continue atorvastatin 10 mg daily. Assessment & Plan (09/10/2020 8:21 AM CDT): On low-dose atorvastatin, LDL is 41. Nonfasting triglycerides are elevated. Continue atorvastatin 10 mg daily. Presence of cardiac resynchr onization therapy defibrillator (WIRELESS CONSTRUCTION MANAGER-D) 03/04/2020 Overview (03/04/2020): Medtronic Barry HF QUAD WIRELESS CONSTRUCTION MANAGER-D implanted on 03/03/20 for NICM/CHF/LBBB. Toney/Victor Manuel [...] meds Assessment & Plan (03/01/2022 2:45 PM MCAT TUTOR): With restored LV function. Continue Altace and [...] Altace. Assessment & Plan (02/23/2020 4:47 PM MCAT TUTOR): Severe nonischemic dilated cardiomyopathy with [place] heart Association class 2 symptoms. LV ejection [...] My office will make appropriate arrangements. From: Andry Raghu MARTEL JP, Ellenbogen KA, Marta PAIGE III, Brenda Mckinney RA, Tara Vickers AM, Jeremy GONZALEZ, Alexis ARANA, Enoch MARTINEZ, Elizabeth MARCOS, Page RL, Jessa FELIX, Jose MAYER, Augustus ROGER, Jesica AMES. ACC/AHA/HRS 2008 guidelines for device-based therapy of cardiac rhythm abnormalities: a report of the [place] College of Cardiology/[place] Heart Association Task Force on Practice Guidelines [...] cardiac rhythm abnormalities: a report of the [place] College of Cardiology Foundation/[place] Heart Association Task Force on Practice Guidelines and the Heart Rhythm Society. J Am Rudy Cardiol 2013;61:e6-75. Class I: WIRELESS CONSTRUCTION MANAGER is indicated for patients who have LVEF [...] Type Department Care Team Description 09/11/2024 Telephone [facility] Cardiology [facility] [facility] Advanced Medicine [address]th [place] [address] [place] [address] Henrique Zuluaga MD 09/11/2024 Telephone [facility] Cardiology [facility] Advanced Medicine 8th [place] [address] [place] [address] Kalee Murcia MD 06/23/2024 Orders Only [facility] Cardiology [address] [place] [address] Delmi Winkler NP 06/22/2024 Orders Only [facility] Cardiology [facility] Advanced Medicine 8th [place] [address] [place] [address] Henrique Zuluaga MD from Last 3 Months Immunizations Immunization Administration Dates Next Due Influenza, Quadrivalent, Spl it, Preservative Free, Intramuscular 2018 Tdap 12/16/2018 Surgical History Surgery Date Site/Laterality Comments CHOLECYSTECTOMY Cholecystectomy NEPHRECTOMY Left Nephrectomy HYSTERECTOMY Hysterectomy TOTAL ABDOMINAL HYSTERECTOMY Hysterectomy, total INSERT / REPLACE / REMOVE PACEMAKER Medical History Medical History Date Comments Hx Other Medical Diverticulosis Hx Other Medical diverticulosis; Comments: [facility] 07/10/2014 - Hx Other Medical nephrectomy; Co mments: [facility] 07/10/2014 - Cardiomyopathy (HCC) Left bundle branch [...] on file Legal Sex Female 4:02 PM MCAT TUTOR Gender Identity Female 02/13/2020 7:45 AM CDT Sexual Orientation Straight 02/13/2020 7: 45 AM CDT Obstetrics History Last Filed Vital Signs Vital Sign Reading Time Taken Comments Blood Pressure 129/71 05/22/2024 10:15 AM MCAT TUTOR Pulse 67 05/22/2024 10:15 AM MCAT TUTOR Temperature 36.6 C (97.9 F) 10/23/2023 6:40 AM CDT Respiratory Rate 17 10/23/2023 6:40 AM CDT Oxygen Saturation 98% 04/25/2024 9:42 AM MCAT TUTOR Inhaled Oxygen Concentration - - Weight 85.7 kg (189 lb) 04/25/2024 9:42 AM MCAT TUTOR Height 162.6 cm (5' 4) 04/25/2024 9:42 AM MCAT TUTOR Body Mass Index 32.44 04/25/2024 9:42 AM MCAT TUTOR Plan of Treatment Health Maintenance Due Date Last Done Comments Breast Cancer Screening-Mammogram 1955 Colon Cancer Screening-Colonoscopy 1955 Depression Screening 1955 Hepatitis C Screening 1955 Osteoporosis Screening-Bone Density Scan 1955 Hepatitis B Screening 01/14/1974 Pneumococcal vaccine 65+ (1 of 2 - PCV) 01/14/1975 Zoster Vaccine (1 of 2) 01/14/2006 Well Visit 65+ 01/14/2021 Fall Risk Assessment 10/22/2024 10/23/2023 Influenza Vaccine (Season Ended) 2024 01/16/20 18 DTaP/Tdap/Td Vaccine (2 - Td or Tdap) 12/16/2028 Medical Devices Implanted Type Area Monotype Caster Device Identifier Shelf Expiration Date Model / Serial / Lot Medtronic Inc [id number] Cardiac Barry Hf 2 Chamber Df4 Inline Cnc Is4 - [id number] - [id number] Implanted:Qty: 1 on 03/03/2020 by True Ziegler MD at [facility] ICD Medtronic Inc [id number] 07/04/2021 DTP B2QQ / [id number] 2S / Medtronic Cardiac Rhythm Mgmt [id number] Sprint Quattro Secure 62cm Tripolar Screw In Extendable - [id number] - [id number] Implanted:Qty: 1 on 03/03/2020 by True Ziegler MD at [facility] Lead Medtronic Inc [id number] 11/11/2021 693 [id number] / [id number] / Medtronic Cardiac Rhythm Mgmt 5076-52 Capsurefix Novus 6.2fr 2mm 52cm Bipolar Screw In Implantable Latex Free - [id number] - [id number] Implanted:Qty: 1 on 03/03/2020 by True Ziegler MD at [facility] Lead Medtronic Inc [id number] 12/23/2021 507 6-52 / [id number] / Medtronic Inc [id number] Lead Attain Stability Quad Mri Surescan Lv 88mm - [id number] - [id number] Implanted:Qty: 1 on 03/03/2020 by True Ziegler MD at [facility] Lead Medtronic Inc [id number] 08/28/2021 479 888 / [id number] 1V / [employer]iva [employer] Inc Device Vascular Closure Femoral Artery Bioabsorbable Dual Method Vascade 6-7fr Collagen [id number] - [id number] - [id number] Implanted:Qty: 1 on 10/22/2023 by Henrique Zuluaga MD at [facility] Vascular Closure Device [employer] Inc 07/24/2025 700-580I -05U / [id number] / [id number] [employer] Inc Vascade Mvp 6-12fr Venous Closure [id number] - [id number] - [id number] Implanted:Qty: 1 on 10/22/2023 by Henrique Zuluaga MD at [facility] Vascular Closure Device [employer] Inc 06/26/2025 800-612C -10U / [id number] 311B / [id number] [employer] Inc Vascade Mvp 6-12fr Venous Closure [id number] - [id number] - [id number] Implanted:Qty: 1 on 10/22/2023 by Henrique Zuluaga MD at [facility] Vascular Closure Device [employer] Inc 06/26/2025 800-612C -10U / [id number] / [id number] Procedures Procedure Name Priority Date/Time Associated Diagnosis Comments DEVICE CHECK - REMOTE Routine 06/22/2024 9:09 PM MCAT TUTOR from Last 3 Months Results * DEVICE CHECK - REMOTE (06/22/2024 9:09 PM MCAT TUTOR) Anatomical Region Laterality Modality Other 06/22/2024 9:09 PM MCAT TUTOR Narrative 07/01/2024 2:18 PM CDT Interpretation Summary: Battery and Leads (BL) Normal parameters noted on battery and lead(s) --- 6.8 yrs remaining longevity (implanted 2019). Lead impedance, sensing, and threshold trends stable and appropriate. No short V-V intervals. Presenting Rhythm (HI) Atrial Sensing-Ventricular Pacing (-PAYROLL ANALYST) --- /PAYROLL ANALYST 66 to 68 bpm. Arrhythmic events (AE) [...] appropriate. No short V-V intervals. Presenting Rhythm (HI) Atrial Sensing-Ventricular Pacing (-PAYROLL ANALYST) --- /PAYROLL ANALYST 66 to 68 bpm. Arrhythmic events (AE) No new arrhythmic events in monitoring period --- Since 06/10/24: No AHRor VHR episodes. Transmission Information (TI) Device Summary Report Follow Up (FU) Patient's primary treating physician will be apprised of findings Henrique Zuluaga MD CV CARDIAC SERVI RAQUEL PROCEDURES Final Result from Last 3 Months Insurance MEDICARE [facility] MEDICARE [facility] MEDICARE [facility] MEDICARE [facility] Member Subscriber Plan / Payer (Ef fective 2022-) Name:Jessy Mae Relation to Subscriber:Self Name:Jessy Mae Payer ID:[id number] Group ID:Not on file Type:COMMERCIAL Address: [place] [id number] Advance Directives For more information, please contact: [phone] * Full Code (Latest Code Status on File) Date Activated Date Inactivated Comments 10/22/2023 4:46 PM 10/23/2023 3:25 PM Care Teams Contracts Attorney Relationship Specialty Start Date End Date Jazmine Lozano DO PCP - General Family Medicine 01/30/20
--- OUTSIDE RECORDS SUMMARY | 2024-09-17 01:02 | XMS_ITS | Encounter Summary ---
Author Organization [facility] Address [address] [place] [address] Phone Care Team Providers Care Foot Miter Operator Name Role Phone Jazmine Lozano DO Primary Care Provider +1- [phone] Encounter Details Date Type Department Care Team (Late st Contact Info) Description 09/11/2024 Telephone [facility] Cardiology [address] [facility] Advanced Medicine 8th [place] [address] [place] [address] Kalee Murcia MD [address] [place] [address] Social History Tobacco Use Types [...] on file Legal Sex Female 4:02 PM VICE PRESIDENT NETWORK DEVELOPMENT Gender Identity Female 02/13/2020 7:45 AM CDT Sexual Orientation Straight 02/13/2020 7: 45 AM CDT documented as of this encounter Miscellaneous Notes * Telephone Encounter - Peggy Ramirez - 09/11/2024 1:30 PM CDT cardiac clearance and holding medication CALLER NAME:Patience FACILITY NAME: [facility] PHONE NUMBER: [phone] FAX NUMBER: [phone] TYPE OF SURGERY: Colonoscopy NAME OF SURGEON: Dr. Jiang SCHEDULED FOR: 09/17 Eliquis: FOR 2 DAYS COMMENTS: documented in this encounter Plan of Treatment Not on file documented as of this encounter Visit Diagnoses Not on filedocumented in this encounter Care Teams Foot Miter Operator Relationship Specialty Start Date End Date Jazmine Lozano DO PCP - General Family Medicine 01/30/20 documented as of this encounter
--- OUTSIDE RECORDS SUMMARY | 2024-09-17 01:02 | XMS_ITS | Encounter Summary ---
Author Organization [facility] Address [address] [place] [address] Phone Care Team Providers Care Process Control Specialist Name Role Phone Jazmine Lozano Primary Care Provider +1- [phone] Encounter Details Date Type Department Care Team (Late st Contact Info) Description 09/11/2024 Telephone [facility] Cardiology [address] [facility] Advanced Medicine 8th [place] [address] [place] [address] Henrique Zuluaga MD [address] [facility] [address] [place], [place] [id number] Social History Tobacco Use Types Packs/Day Years [...] on file Legal Sex Female 4:02 PM ETHANOL MAINTENANCE MECHANIC Gender Identity Female 02/13/2020 7:45 AM CDT Sexual Orientation Straight 02/13/2020 7: 45 AM CDT documented as of this encounter Miscellaneous Notes * Telephone Encounter - Mary Bright RN - 09/12/2024 1:36 PM CDT This was faxed today with confirmation. * Telephone Encounter - Peggy Ramirez - 09/11/2024 1:32 PM CDT Patience with [facility] calling to speak with a nurse in regards to seeing ifthe device form that they sent over for this pt was received. documented in this encounter Plan of Treatment Not on file documented as of this encounter Visit Diagnoses Not on filedocumented in this encounter Care Teams Process Control Specialist Relationship Specialty Start Date End Date Jazmine Lozano DO PCP - General Family Medicine 01/30/20 documented as of this encounter
[2024-09-17 09:16] VITALS: BP 106/71; PULSE 95; RESP 20; TEMP 36.1; O2SAT 98
[2024-09-17] MEDS: LACTATED RINGERS 1,000 ML 150 ML IV CONT (09:27)
--- NOTE | 2024-09-17 09:28 | P.PNAN_ITS ---
Anes - Initial Pre Proc Eval Procedure: Operation Date: 09/17/24 10:30 Proposed Procedures p Colonoscopy - Ad Champagne MD Date/Time: 09/17/24 09:28 Surgeon: Ad Champagne MD Pre Op Diagnosis: Hx of colon polyps, unspecified Patient Data Age: 69 Gender: F Height: 1.63 m Weight: 84.6 kg Last Vital Signs Temp 97 F L 09/17/24 09:16 Pulse 95 09/17/24 09:16 Resp 20 09/17/24 09:16 BP 106/71 09/17/24 09:16 Pulse Ox 98 09/17/24 09:16 O2 Del Method Room Air 09/17/24 09:16 Allergies Allergy/AdvReac Type Severity Reaction Status Date / Time No Known Allergies Allergy Mild Verified 09/17/24 09:13 Home Medications ?Medication ?Instructions ?Recorded ?Confirmed ?Type carvedilol 25 mg tablet (Coreg) 25 mg PO Q12H 05/02/19 09/17/24 History cholecalciferol (vitamin D3) 50 2,000 unit PO DAILY 05/02/19 09/17/24 History mcg (2,000 unit) tablet calcium 500 mg (as 1 tablet PO DAILY 06/10/19 09/17/24 History carbonate)-vitamin D3 5 mcg (200 unit) tablet (Calcium 500 + D) ferrous sulfate 27 mg iron tablet 27 mg PO DAILY 06/10/19 09/17/24 History oqlytqrg-rap-sezcq acid 0.4 1 tablet PO DAILY 06/10/19 09/17/24 History mg-lycopene 300 mcg-lutein 250 mcg tablet (Centrum Silver) omega 6-sur-ohp-fish oil 1,000 mg 1 cap PO DAILY 06/10/19 09/17/24 History (120 mg-180 mg) capsule (Fish Oil) vitamin B complex (B 1 tablet PO DAILY 06/10/19 09/17/24 History Complex-Vitamin B12 tablet) spironolactone 25 mg tablet 12.5 mg PO DAILY 11/06/23 09/17/24 History dapagliflozin propanediol 10 mg 10 mg PO DAILY 05/19/24 09/17/24 History tablet (Farxiga) sacubitril 49 mg-valsartan 51 mg 1 tablet PO BID 05/19/24 09/17/24 History tablet (Entresto) aspirin 81 mg tablet,delayed 81 mg PO DAILY 06/27/24 09/17/24 History release atorvastatin 10 mg tablet See Rx Instructions .Route 08/28/24 09/17/24 Rx .COMPLEX #90 tabs Patient hx anesthesia problems: none Family hx anesthesia problems: none Results Review: All pre-operative results and documents have been reviewed as part of the pre- operative evaluation. [facility] Past Medical History Medical History Pacemaker Hepatitis C antibody test negative (12/04/16) Cardiac defibrillator in place (~02/22/20) Family history of colon cancer in mother Cardiomyopathy Obesity Hyperlipidemia HTN (hypertension) Surgical History Surgical History H/O cardiac radiofrequency ablation History of cardiac radiofrequency ablation (RFA) History of nephrectomy, left (~2011) H/O: hysterectomy (~03/01/12) BRYON/BSO Hx of cholecystectomy (~1980) Family History Family History Mother Hypertension Family history of elevated blood lipids Family history of neuropathy Sibling Hypertension Grandparent Family history of lung cancer Father Family history of lung cancer, Onset Age: 71 Other Family history of cardiovascular disease No family history of cardiovascular disease Social History Social History Smoking status: Never smoker Second hand tobacco smoke exposure: Yes Additional smoking assessment comments: DENIES ANY FORM OF TOBACCO USE Alcohol intake: never Alcohol use details: 2 DRINKS PER MONTH Substance use: never Substance use type: does not use Other substance usage details: alcohol rarely Do You Feel Safe in your Home?: Yes Lack of Transportation: No Lack of Food: Never True Current Housing: I Have Housing Concerned About Future Housing: No Difficulty Paying Gas/Electric Bills: No Difficulty Paying for Meds: No Currently Unemployed: No Education: High School Diploma/GED Difficulty w/ Childcare or Family Care: No Living arrangements: with family Additional living arrangements comments: 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 Informed Consent: The patient's anesthetic plan and its attendant risks and benefits were discussed with the patient/family/POA. Questions were solicited and answers provided to the satisfaction of the patient/family/POA.
--- NOTE | 2024-09-17 10:00 | PM.HPGS ---
History of Present Illness History of Present Illness Consent: Risks, benefits, and alternatives have been discussed and questions answered. Patient agrees to proceed with procedure. Chief complaint: Hx of colon polyps, unspecified Narrative: Jessy Mae is a 69 year old female with colon polyp in 2019, mother had colon cancer Review of Systems Review of Systems: All systems reviewed & are unremarkable except as noted in HPI and below PMFSH Past Medical History Medical History (Updated 09/17/24 @ 10:01 by Ad Champagne MD) Colon polyp Pacemaker Hepatitis C antibody test negative (12/04/16) Cardiac defibrillator in place (~02/22/20) Family history of colon cancer in mother Cardiomyopathy Obesity Hyperlipidemia HTN (hypertension) Surgical History Surgical History H/O cardiac radiofrequency ablation History of cardiac radiofrequency ablation (RFA) History of nephrectomy, left (~2011) H/O: hysterectomy (~03/01/12) BRYON/BSO Hx of cholecystectomy (~1980) Family History Family History Mother Hypertension Family history of elevated blood lipids Family history of neuropathy Sibling Hypertension Grandparent Family history of lung cancer Father Family history of lung cancer, Onset Age: 71 Other Family history of cardiovascular disease No family history of cardiovascular disease Social History Social History Smoking status: Never smoker Second hand tobacco smoke exposure: Yes Additional smoking assessment comments: DENIES ANY FORM OF TOBACCO USE Alcohol intake: never Alcohol use details: 2 DRINKS PER MONTH Substance use: never Substance use type: does not use Other substance usage details: alcohol rarely Do You Feel Safe in your Home?: Yes Lack of Transportation: No Lack of Food: Never True Current Housing: I Have Housing Concerned About Future Housing: No Difficulty Paying Gas/Electric Bills: No Difficulty Paying for Meds: No Currently Unemployed: No Education: High School Diploma/GED Difficulty w/ Childcare or Family Care: No Living arrangements: with family Additional living arrangements comments: Occupation/Education: 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 Gender identity (if verbalized by the patient): Female Spiritual care concerns: No Agree to blood products: Yes Meds Home Medications and Allergies Home Medications ?Medication ?Instructions ?Recorded ?Confirmed ?Type carvedilol 25 mg tablet (Coreg) 25 mg PO Q12H 05/02/19 09/17/24 History cholecalciferol (vitamin D3) 50 2,000 unit PO DAILY 05/02/19 09/17/24 History mcg (2,000 unit) tablet calcium 500 mg (as 1 tablet PO DAILY 06/10/19 09/17/24 History carbonate)-vitamin D3 5 mcg (200 unit) tablet (Calcium 500 + D) ferrous sulfate 27 mg iron tablet 27 mg PO DAILY 06/10/19 09/17/24 History bqoywugy-qke-jolri acid 0.4 1 tablet PO DAILY 06/10/19 09/17/24 History mg-lycopene 300 mcg-lutein 250 mcg tablet (Centrum Silver) omega 1-aqk-lch-fish oil 1,000 mg 1 cap PO DAILY 06/10/19 09/17/24 History (120 mg-180 mg) capsule (Fish Oil) vitamin B complex (B 1 tablet PO DAILY 06/10/19 09/17/24 History Complex-Vitamin B12 tablet) spironolactone 25 mg tablet 12.5 mg PO DAILY 11/06/23 09/17/24 History dapagliflozin propanediol 10 mg 10 mg PO DAILY 05/19/24 09/17/24 History tablet (Farxiga) sacubitril 49 mg-valsartan 51 mg 1 tablet PO BID 05/19/24 09/17/24 History tablet (Entresto) aspirin 81 mg tablet,delayed 81 mg PO DAILY 06/27/24 09/17/24 History release atorvastatin 10 mg tablet See Rx Instructions .Route 08/28/24 09/17/24 Rx .COMPLEX #90 tabs Allergies Allergy/AdvReac Type Severity Reaction Status Date / Time No Known Allergies Allergy Mild Verified 09/17/24 09:13 Vital Signs Vital Signs - 24 hr 09/17/24 09:16 Temperature 97 F L Pulse Rate 95 Respiratory Rate 20 Blood Pressure 106/71 Pulse Oximetry 98 Oxygen Delivery Room Air Exam Const: General: comfortable and no acute distress HENMT: Face/Nose/Sinus: Normal nares present Eyes: General: appearance normal, both eyes and all related structures Neck: Neck: no JVD Resp: Auscultation: clear to auscultation bilaterally Cardio: Rate: regular rate Rhythm: regular rhythm GI: Inspection: non-distended GI Palp: Yes Soft to palpation Skin: General skin exam: normal color Neuro: Speech: normal speech Extrem: General: normal to inspection Psych: Mental Status: mental status grossly normal Assessment and Plan Assessment and plan (1) Family history of colon cancer in mother: Code(s): Z80.0 - Family history of malignant neoplasm of digestive organs Status: Acute (2) Colon polyp: Code(s): K63.5 - Polyp of colon Status: Acute Assessment and Plan: colonoscopy
[2024-09-17 10:18] VITALS: BP 105/50; PULSE 65; RESP 20; O2SAT 96
[2024-09-17 10:28] VITALS: BP 96/62; PULSE 60; RESP 17; O2SAT 99
[2024-09-17 10:38] VITALS: BP 134/55; PULSE 62; RESP 19; O2SAT 99
== END 2024-09-17 10:43 | disposition home or self-care (01) ==
PROVIDERS: PCP Family Medicine; Referring Provider Internal Medicine Gastroenterology; Visit Provider Internal Medicine Gastroenterology
PROC: 0DJD8ZZ Inspection of Lower Intestinal Tract, Via Natural or Artificial Opening Endoscopic (ICD-10-PCS; CPT 45378; principal; 2024-09-17 10:30)
DX: Z12.11 Encounter for screening for malignant neoplasm of colon (principal); K64.8 Other hemorrhoids; K57.30 Diverticulosis of large intestine without perforation or abscess without bleeding; E78.5 Hyperlipidemia, unspecified; I10 Essential (primary) hypertension; E66.9 Obesity, unspecified; Z68.32 Body mass index [BMI] 32.0-32.9, adult; Z79.84 Long term (current) use of oral hypoglycemic drugs; Z79.82 Long term (current) use of aspirin; Z98.890 Other specified postprocedural states; Z90.49 Acquired absence of other specified parts of digestive tract; Z95.0 Presence of cardiac pacemaker; Z86.0100 Personal history of colon polyps, unspecified; Z86.79 Personal history of other diseases of the circulatory system; Z80.0 Family history of malignant neoplasm of digestive organs; Z80.1 Family history of malignant neoplasm of trachea, bronchus and lung; Z82.49 Family history of ischemic heart disease and other diseases of the circulatory system
CPT/HCPCS: G0105; J2003; J2704; J7120

== ENCOUNTER 2024-11-05 08:41 | Outpatient (CLI) | payer MEDICARE, SELFPAY ==
--- OUTSIDE RECORDS SUMMARY | 2024-11-05 08:50 | XMS_ITS | Encounter Summary ---
Author Organization [facility] Address [address] [place] [address] Phone Care Team Providers Care Cage/Vault Supervisor Name Role Phone Jazmine Lozano DO Primary Care Provider [phone]- [phone] Encounter Details Date Type Department Care Team (Latest Contact Info) Description 11/04/2024 10:00 AM CDT Office Visit [facility] Cardiology [address] [address] [place] [address] Kalee Murcia MD [address] [facility] [address] [place] [address] PVC (premature ventricular contraction) (Primary Dx); Dilated cardiomyopathy (HCC) Social History Tobacco Use Types Packs/Day Years [...] on file Legal 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 Gender Identity Female 02/13/2020 7:45 AM CDT Sexual Orientation Straight 02/13/2020 7 :45 AM CDT documented as of this encounter Last Filed Vital Signs Vital Sign Reading Time Taken Comments Blood Pressure 136/98 11/04/2024 10:26 AM CDT Pulse 90 11/04/2024 10:26 AM CDT Temperature - - Respiratory Rate - - Oxygen Saturation 95% 11/04/2024 10:26 AM CDT Inhaled Oxygen Concentration - - Weight 86.6 kg (191 lb) 11/04/2024 10:26 AM CDT Height 162.6 cm (5' 4) 11/04/2024 10:26 AM CDT Body Mass Index 32.79 11/04/2024 10:26 AM CDT documented in this encounter Patient Instructions * Patient Instructions* Kerri Atkins RN - 11/04/2024 10:00 AM CDT Please call our heart failure office @ [phone] with any questions,concerns or updates. (Cuate) Labs: will check to see what labs PCP is ordering Follow up in clinic in 6 months documented in this encounter Ordered Prescriptions Prescription Sig Dispense Quantity Refills Last Filled Start Date End Date empagliflozin (JARDIANCE) 10 mg tabletIndications: Heart Failure Take 1 tablet (10 mg total) by mouth daily 30 tablet 11 11/04/2024 11/04/2025 documented in this encounter Plan of Treatment Scheduled Orders Name Type Priority Associated Diagnoses Orde r Schedule Pro B-type natriuretic peptide Lab Routine PVC (premature ventricular contraction) Dilated cardiomyopathy (HCC) Expected: 11/07/2024, Expires: 11/04/2025 documented as of this encounter Procedures Procedure Name Priority Date/Time Associated Diagnosis Comments ECG 12-LEAD Routine 11/04/2024 10:28 AM CDT PVC (premature ventricular contraction) documented in this encounter Results * ECG 12 lead (11/04/2024 10:28 AM CDT) Kalee Murcia MD ECG ORDERABLES Final R esult documented in this encounter Visit Diagnoses Diagnosis PVC (premature ventricular contraction)- Primary Other premature beats Dilated cardiomyopathy (HCC) Other primary cardiomyopathies documented in this encounter Discontinued Medications Medication Sig Discontinue Reason Start Date End Da te dapagliflozin propanediol (FARXIGA) 10 mg tablet Take 1 tablet (10 mg total) by mouth daily for 14 days Patient Reported 09/17/2024 11/04/2024 documented as of this encounter Historical Medications * This list may reflect changes made after this encounter. amoxicillin 500 mg capsule TAKE ALL 4 CAPSULES 30 MINUTES PRIOR TO DENTAL VISIT 10/13/2024 added in this encounter Care Teams Cage/Vault Supervisor Relationship Specialty Start Date End Date Jazmine Lozano DO PCP - General Family Medicine 01/30/20 documented as of this encounter
--- OUTSIDE RECORDS SUMMARY | 2024-11-05 08:50 | XMS_ITS | Referral Summary ---
[facility] Organization [facility] [address] Address [address] [place] [address] Care Team Providers Care Tank Setter Helper Name Role Phone Jazmine Lozano DO Primary Care Provider [phone]- [phone] Encounters Date Type Department Care Team Description 11/04/2024 Telephone [facility] Transplant Heart [id number] [place] [address] Kerri Atkins RN 11/04/2024 10:00 AM CDT Office Visit [facility] Cardiology [address] [facility] Medical Office [address] [place] [address] Kalee Murcia MD PVC (premature ventricular contraction) (Primary Dx); Dilated cardiomyopathy (HCC) 09/20/2024 Orders Only [facility] Cardiology [address] [facility] [address] [place] [address] [place] [id number] Henrique Zuluaga MD 09/11/2024 Telephone [facility] Cardiology [address] [facility] [address] [place] [address] [place] [address] Henrique Zuluaga MD 09/11/2024 Telephone [facility] Cardiology [facility] [facility] [address] [place] [address] [place] [address] Kalee Murcia MD from Last 3 Months Allergies No known active allergies Medications calcium carbonate-vitam in D3 (CALCIUM 600 + D,3,) 600 mg calcium- 200 unit capsule 0 0 07/11/19 15 Active multivitamin tablet tablet take 1 tablet by oral route every day with food 0 0 07/11/19 15 Active iccou-0l-qre-ep a-fish oil (OMEGA 3) 350-400 mg capsule 0 0 07/11/19 15 Active ferrous sulfate (IRON) 325 mg (65 mg iron) capsule, extended release 0 0 07/11/19 15 Active cholecalciferol (VITAMIN D3) 2,000 unit capsule 0 0 10/15/19 13 Active cyanocobalamin, vitamin B-12, 5,000 mcg tablet, sublingualIndic ations:Preventi on of Vitamin B12 Deficiency Place 1 tablet under the tongue nightly Active atorvastatin (LIPITOR) 10 mg tabletIndicatio ns:hyperlipidem ia Take 1 tablet (10 mg total) by mouth nightly Active carvediloL (COREG) 25 mg tablet TAKE 1 TABLET BY MOUTH TWICE DAILY WITH MEALS 180 tablet 3 03/07/20 24 Active spironolactone (ALDACTONE) 25 mg tablet TAKE 1 TABLET BY MOUTH DAILY 90 tablet 3 06/12/19 25 Active Entresto 49-51 mg tablet TAKE 1 TABLET BY MOUTH TWICE DAILY 180 tablet 3 06/16/19 25 Active dapagliflozin propanediol (FARXIGA) 10 mg tablet Take 1 tablet (10 mg total) by mouth daily 21 tablet 10/17/19 25 Active amoxicillin 500 mg capsule TAKE ALL 4 CAPSULES 30 MINUTES PRIOR TO DENTAL VISIT 10/14/19 25 Active empagliflozin (JARDIANCE) 10 mg tabletIndicatio ns:Heart Failure Take 1 tablet (10 mg total) by mouth daily 30 tablet 11 11/05/19 25 026 Active dapagliflozin propanediol (FARXIGA) 10 mg tablet Take 1 tablet (10 mg total) by mouth daily 21 tablet 05/22/19 25 025 Discontinued dapagliflozin propanediol (FARXIGA) 10 mg tablet Take 1 tablet (10 mg total) by mouth daily for 14 days 14 tablet 09/18/19 25 025 Discontinued(Pranay rand Reported) Hospital, Clinic, or Other Facility Administered [...] statin Assessment & Plan (03/01/2022 2:46 PM FARM MANAGEMENT SUPERVISOR): Well controlled with an LDL of 16 mg/dL. Continue low intensity Lipitor. Assessment & Plan (02/25/2021 11:44 AM CDT): She is on chronic lipid-lowering therapy. LDL 41 on 09/09/2020. Continue atorvastatin 10 mg daily. Assessment & Plan (09/10/2020 8:21 AM CDT): On low-dose atorvastatin, LDL is 41. Nonfasting triglycerides are elevated. Continue atorvastatin 10 mg daily. Presence of cardiac resynchr onization therapy defibrillator (PROP WORKER-D) 03/04/2020 Overview (03/04/2020): Medtronic [place] HF QUAD PROP WORKER-D implanted on 03/03/20 for NICM/CHF/LBBB. Tonye/Victor Manuel Membreno Assessment & Plan (02/25/2021 11:45 [...] meds Assessment & Plan (03/01/2022 2:45 PM FARM MANAGEMENT SUPERVISOR): With restored LV function. Continue Altace and [...] Altace. Assessment & Plan (02/23/2020 4:47 PM FARM MANAGEMENT SUPERVISOR): Severe nonischemic dilated cardiomyopathy with [place] heart Association class 2 symptoms. LV ejection [...] office will make appropriate arrangements. From: Andry AE, Raghu CIPRIANO, Mya KA, Marta PAIGE III, Faye RA, Brenda LS, Rancho AM, Tara G, Jeremy SC, Alexis DL, Enoch MA, Elizabeth LK, Adrienne RL, Jessa MH, Jose MJ, Augustus LW, Jesica [place]. ACC/AHA/HRS 2008 guidelines for device-based therapy of cardiac rhythm abnormalities: a report of the [place] College of Cardiology/[place] Heart Association Task Force on Practice Guidelines [...] or III. (Level of Evidence: B) From: Andry AE, Raghu CIPRIANO, Mya KA, Marta PAIGE III, Faye RA, Brenda LS, Rancho AM, Tara G, Jeremy SC, Alexis DL, Enoch MA, Elizabeth LK, Adrienne RL, Jessa MH, Jose MJ, Augustus LW, Jesica AMES 2012 ACCF/AHA/HRS focused update incorporated into the ACCF/AHA/HRS 2008 guidelines for device-based therapy of cardiac rhythm abnormalities: a report of the [place] College of Cardiology Foundation/[place] Heart Association Task Force on Practice Guidelines and the Heart Rhythm Society. J Am Rudy Cardiol 2013;61:e6-75. 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 Gender Identity Female 02/13/2020 7:45 AM CDT Sexual Orientation Straight 02/13/2020 7: 45 AM CDT Last Filed Vital Signs Vital Sign Reading Time Taken Comments Blood Pressure 136/98 11/04/2024 10:26 AM CDT Pulse 90 11/04/2024 10:26 AM CDT Temperature 36.6 C (97.9 F) 10/23/2023 6:40 AM CDT Respiratory Rate 17 10/23/2023 6:40 AM CDT Oxygen Saturation 95% 11/04/2024 10:26 AM CDT Inhaled Oxygen Concentration - - Weight 86.6 kg (191 lb) 11/04/2024 10:26 AM CDT Height 162.6 cm (5' 4) 11/04/2024 10:26 AM CDT Body Mass Index 32.79 11/04/2024 10:26 AM CDT Plan of Treatment Not on file Medical Devices Implanted Type Area Squirrel Man Device Identifier Shelf Expiration Date Model / Serial / Lot Medtronic Inc [id number] Cardiac [place] Hf 2 Chamber Df4 Inline Cnctr Is4 - [id number] - [id number] Implanted:Qty: 1 on 03/03/2020 by True Ziegler MD at [facility] ICD Medtronic Inc [id number] 07/04/2021 DTP [id number] / [id number] 2S / Medtronic Cardiac Rhythm Mgmt [id number] Sprint Quattro Secure 62cm Tripolar Screw In Extendable - [id number] - [id number] Implanted:Qty: 1 on 03/03/2020 by True Ziegler MD at [facility] Lead Medtronic Inc [id number] 11/11/2021 [id number] / [id number] / Medtronic Cardiac Rhythm Mgmt [id number] Capsurefix Novus 6.2fr 2mm 52cm Bipolar Screw In Implantable Latex Free - [id number] - [id number] Implanted:Qty: 1 on 03/03/2020 by True Ziegler MD at [facility] Lead Medtronic Inc [id number] 12/23/2021 507 6-52 / [id number] / Medtronic Inc [id number] Lead Attain Stability Quad Mri Surescan Lv 88mm - [id number] - [id number] Implanted:Qty: 1 on 03/03/2020 by True Ziegler MD at [facility] Lead Medtronic Inc [id number] 08/28/2021 [id number] / [id number] / [employer] Device Vascular Closure Femoral Artery Bioabsorbable Dual Method Vascade 6-7fr Collagen [id number] - [id number] - [id number] Implanted:Qty: 1 on 10/22/2023 by Henrique Zuluaga MD at [facility] Vascular Closure Device [employer] Inc 07/24/2025 [id number] -[id number] / [id number] / [id number] [employer] Inc Vascade Mvp 6-12fr Venous Closure [id number] - [id number] - [id number] Implanted:Qty: 1 on 10/22/2023 by Henrique Zuluaga MD at [facility] Vascular Closure Device [employer] 06/26/2025 [id number] -[id number] / [id number] / [id number] [employer] Inc Vascade Mvp 6-12fr Venous Closure [id number] - [id number] - [id number] Implanted:Qty: 1 on 10/22/2023 by Henrique Zuluaga MD at [facility] Vascular Closure Device [employer] 06/26/2025 [id number] -[id number] / [id number] / [id number] Procedures Procedure Name Priority Date/Time Associated Diagnosis Comments ECG 12-LEAD Routine 11/04/2024 10:28 AM CDT PVC (premature ventricular contraction) DEVICE CHECK - REMOTE Routine 09/20/2024 11:29 PM CDT from Last 3 Months Results * ECG 12 lead (11/04/2024 10:28 AM CDT) us Kalee Murcia MD ECG ORDERABLES Final R esult * DEVICE CHECK - REMOTE (09/20/2024 11:29 PM CDT) Anatomical Region Laterality Modality Other 09/20/2024 11:2 9 PM CDT Narrative 09/22/2024 4:34 PM CDT Interpretation Summary: Battery and Leads (BL) Normal parameters noted on battery and lead(s) --- 6.5 yrs remaining longevity (implanted 2019). Lead impedance, sensing, and threshold trends stable and appropriate. No short V-V intervals. Presenting Rhythm (HI) Atrial Pacing-Ventricular Pacing (AP-BUSINESS COMPUTERS TEACHER) --- AP/BUSINESS COMPUTERS TEACHER 90 bpm. Arrhythmic events (AE) No new arrhythmic events in monitoring period --- Since 06/22/24: No AHR or VHR episodes. Transmission Information (TI) Device Summary Report Follow Up (FU) Patient's primary treating physician will be apprised of findings Procedure Note Henrique Zuluaga MD - 09/22/2024 Interpretation Summary: Battery and Leads (BL) Normal parameters noted on battery and lead(s) --- 6.5 yrs remaininglongevity (implanted 2019). Lead impedance, sensing, and thresholdtrends stable and appropriate. No short V-V intervals. Presenting Rhythm (HI) Atrial Pacing-Ventricular Pacing (AP-BUSINESS COMPUTERS TEACHER) --- AP/BUSINESS COMPUTERS TEACHER 90 bpm. Arrhythmic events (AE) No new arrhythmic events in monitoring period --- Since 06/22/24: No AHRor VHR episodes. Transmission Information (TI) Device Summary Report Follow Up (FU) Patient's primary treating physician will be apprised of findings Henrique Zuluaga MD CV CARDIAC SERVI RAQUEL PROCEDURES Final Result from Last 3 Months Insurance MEDICARE [facility]AR MEDICARE [facility] MEDICARE [facility] MEDICARE [facility] Advance Directives For more information, please contact: [phone] * Full Code (Latest Code Status on File) Date Activated Date Inactivated Comments 10/22/2023 4:46 PM 10/23/2023 3:25 PM Care Teams Tank Setter Helper Relationship Specialty Start Date End Date Jazmine Lozano DO PCP - General Family Medicine 01/30/20
--- OUTSIDE RECORDS SUMMARY | 2024-11-05 08:50 | XMS_ITS | Encounter Summary ---
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 She has an appt next week and will likely be getting her lab work tomorrow. They confirmed they had CMP, and lipid panel ordered. Asked that they fax results to our office once complete. * Telephone Encounter - Kerri Atkins RN - 11/04/2024 11:54 AM CDT LMOR for PCP to see what lab work was being ordered at her visit tomorrow. Dr spring wasn't a BMP, nt-pr ( printed and sent with pt) lipids and magnesium. Asked if theses were ordered to fax results when complete. Asked for a return call with questions documented in this encounter Plan of Treatment Not on file documented as of this encounter Visit Diagnoses Not on filedocumented in this encounter Care Teams Lead Burner Supervisor Relationship Specialty Start Date End Date Jazmine Lozano DO PCP - General Family Medicine 01/30/20 documented as of this encounter
--- OUTSIDE RECORDS SUMMARY | 2024-11-05 08:50 | XMS_ITS | Clinical Summary ---
Author Organization [facility] Address [address] [place] [address] Care Team Providers Care Anesthesia Attending Name Role Phone Jazmine Lozano Primary Care Provider +1- [phone] Allergies No known active allergies Medications calcium carbonate-vitam in D3 (CALCIUM 600 + D,3,) 600 mg calcium- 200 unit capsule 0 0 07/11/19 15 Active multivitamin tablet tablet take 1 tablet by oral route every day with food 0 0 07/11/19 15 Active plwxk-0d-ifz-ep a-fish oil (OMEGA 3) 350-400 mg capsule [...] statin Assessment & Plan (03/01/2022 2:46 PM TALLOW MAKER): Well controlled with an LDL of [...] Presence of cardiac resynchr onization therapy defibrillator (NAVAL AIRCREWMAN HELICOPTER-D) 03/04/2020 Overview (03/04/2020): Medtronic Kent HF QUAD NAVAL AIRCREWMAN HELICOPTER-D implanted on 03/03/20 for NICM/CHF/LBBB. Toney/Victor Manuel - Carelink Assessment & Plan (02/25/2021 11:45 AM CDT): [...] meds Assessment & Plan (03/01/2022 2:45 PM TALLOW MAKER): With restored LV function. Continue Altace [...] Altace. Assessment & Plan (02/23/2020 4:47 PM TALLOW MAKER): Severe nonischemic dilated cardiomyopathy with [place] heart Association class 2 symptoms. LV ejection [...] KA, Estes NAM III, Brenda Mckinney RA, Rancho PECK, Tara Florian, Jeremy GONZALEZ, Alexis ARANA, Enoch MARTINEZ, Elizabeth MARCOS, Adrienne GRANT, Jessa FELIX, Jose MAYER, Augustus ROGER, [place]. ACC/AHA/HRS 2008 guidelines for device-based therapy of cardiac rhythm abnormalities: a report of the [place] [employer]iology/[place] Heart Association Task Force on Practice Guidelines [...] cardiac rhythm abnormalities: a report of the [place] College of Cardiology Foundation/[place] Heart Association Task Force on Practice Guidelines and the Heart Rhythm Society. J Am Rudy Cardiol 2013;61:e6-75. Class I: NAVAL AIRCREWMAN HELICOPTER is indicated for patients who have LVEF [...] Date Type Department Care Team Description 11/04/2024 10:00 AM CDT Office Visit [facility] Cardiology [address] [facility] [address] [place] [address] Kalee Murcia MD PVC (premature ventricular contraction) (Primary Dx); Dilated cardiomyopathy (HCC) 11/04/[address] [facility] Transplant Heart [address] [address] Mailstop [phone] [place] [address] Kerri Atkins RN 09/20/[address] [facility] Cardiology [facility] 8th [place] [address] [place] [address] Henrique Zuluaga MD 09/11/[address] [facility] Cardiology [address] [place] [address] 8th [place] [address] [place] [phone] Henrique Zuluaga MD 09/11/[address] 8th [place] [address] [place] [phone] Kalee Murcia MD from Last 3 Months Immunizations Immunization Administration Dates Next Due Influenza, Quadrivalent, Spl it, Preservative Free, Intramuscular 2018 Tdap 12/16/2018 Surgical History Surgery Date Site/Laterality Comments CHOLECYSTECTOMY Cholecystectomy NEPHRECTOMY Left Nephrectomy HYSTERECTOMY February 2012 Hysterectomy TOTAL ABDOMINAL HYSTERECTOMY Hysterectomy, total INSERT / REPLACE / REMOVE PACEMAKER Medical History Medical History Date Comments Hx Other Medical Diverticulosis Hx Other Medical diverticulosis; Comments: [facility] 07/10/2014 - Hx Other Medical nephrectomy; Co mments: [facility] 07/10/2014 - Cardiomyopathy (HCC) Left bundle branch block Hyperlipidemia Arthritis Heart disease January 2009 Chronic kidney disease November 2011 Hypertension Family History Medical History Relation Name Comments Cancer Father Lucho Jyotsna Arthritis Mother Mother Cancer Mother Mother Stent Mother's Brother 2 Coronary Stent Placement; Heart disease Mother's Brother 3 Darin Zahida Heart disease Mother's Brother 4 Darin Zahida Anesthesia problems Neg Hx Relation Name Status Comments Father Lucho Jyotsna Alive Mother Mother Alive Mother's Brother 1 Alive Mother's Brother 2 Mother's Brother 3 Darin Zahida Mother's Brother 4 Darin Zahida Alive Social History Tobacco Use Types Packs/Day Years [...] on file Legal Sex Female 4:02 PM TALLOW MAKER Gender Identity Female 02/13/2020 7:45 AM [...] 11/04/2024 10:26 AM CDT Plan of Treatment Health Maintenance Due Date Last Done Comments Breast Cancer Screening-Mammogram 1956 Colon Cancer Screening-Colonoscopy 1955 Depression Screening 1955 Hepatitis C Screening 1955 Osteoporosis Screening-Bone Density Scan 1956 Hepatitis B Screening 01/14/1974 Pneumococcal vaccine 65+ (1 of 2 - PCV) 01/14/1975 Zoster Vaccine (1 of 2) 01/14/2006 Well Visit 65+ 01/14/2021 Fall Risk Assessment 10/22/2024 10/23/2023 Influenza Vaccine (#1) 2024 2018 DTaP/Tdap/Td Vaccine (2 - Td or Tdap) 12/16/2028 Medical Devices Implanted Type Area Sheetrock Applicator Device Identifier Shelf Expiration Date Model / Serial / Lot Buzzient [id number] Cardiac Kent Hf 2 Chamber Df4 Inline Cnctr Is4 - [id number] - [id number] Implanted:Qty: 1 on 03/03/2020 by True Ziegler MD at [facility] ICD Medtronic Inc [id number] 07/04/2021 DTP [id number] / [id number] 2S / Medtronic Cardiac Rhythm Mgmt [id number] Sprint Quattro Secure 62cm Tripolar Screw In Extendable - [id number] - [id number] Implanted:Qty: 1 on 03/03/2020 by True Ziegler MD at [facility] Lead Medtronic Inc [id number] 11/11/2021 693 [id number] / [id number] 5V / Medtronic Cardiac Rhythm Mgmt 5076-52 Capsurefix Novus 6.2fr 2mm 52cm Bipolar Screw In Implantable Latex Free - [id number] - [id number] Implanted:Qty: 1 on 03/03/2020 by True Ziegler MD at [facility] Lead Medtronic Inc [id number] 12/23/2021 507 6-52 / [id number] / Medtronic Inc [id number] Lead Attain Stability Quad Mri Surescan Lv 88mm - [id number] - [id number] Implanted:Qty: 1 on 03/03/2020 by True Ziegler MD at [facility] Lead Medtronic Inc [id number] 08/28/2021 479 888 / [id number] 1V / [employer]iva [employer] Device Vascular Closure Femoral Artery Bioabsorbable Dual Method Vascade 6-7fr Collagen 896-849f-70z - [id number] - [id number] Implanted:Qty: 1 on 10/22/2023 by Henrique Zuluaga MD at [facility] Vascular Closure Device [employer] 07/24/2025 [id number] -05U / [id number] / [id number] [employer] Inc Vascade Mvp 6-12fr Venous Closure 791-713x-78v - [id number] - [id number] Implanted:Qty: 1 on 10/22/2023 by Henrique Zuluaga MD at [facility] Vascular Closure Device [employer] 06/26/2025 800-612C -10U / [id number] 311B / [id number] 311B [employer] Inc Vascade Mvp 6-12fr Venous Closure 595-054u-50k - [id number] - [id number] Implanted:Qty: 1 on 10/22/2023 by Henrique Zuluaga MD at [facility] Vascular Closure Device [employer] 06/26/2025 [id number] -10U / [id number] 311B / [id number] 311B Procedures Procedure Name Priority Date/Time Associated [...] appropriate. No short V-V intervals. Presenting Rhythm (ND) Atrial Pacing-Ventricular Pacing (AP-THIRD HELPER) --- AP/THIRD HELPER 90 bpm. Arrhythmic events (AE) No new [...] appropriate. No short V-V intervals. Presenting Rhythm (ND) Atrial Pacing-Ventricular Pacing (AP-THIRD HELPER) --- AP/THIRD HELPER 90 bpm. Arrhythmic events (AE) No new arrhythmic events in monitoring period --- Since 06/22/24: No AHRor VHR episodes. Transmission Information (TI) Device Summary Report Follow Up (FU) Patient's primary treating physician will be apprised of findings Henrique Zuluaga MD CV CARDIAC SERVI RAQUEL PROCEDURES Final Result from Last 3 Months Insurance MEDICARE [facility] Member Subscriber Plan / Payer (Ef fective 2022-Present) Name:Jessy Mae Relation to Subscriber:Self Name:Jessy Mae Payer ID:[id number] Group ID:Not on file Type:[employer] Address: [address] [place] [id number] MEDICARE [facility] Member Subscriber Plan / Payer (Ef fective 2020-Present) Name:Jessy Mae Relation to Subscriber:Self Name:Jessy Mae Payer ID:[id number] Group ID:Not on file Type:[employer] Address: [facility] [address] [place] [id number] MEDICARE [facility] MEDICARE [facility] Advance Directives For more information, please contact: [phone] * Full Code (Latest Code Status on File) Date Activated Date Inactivated Comments 10/22/2023 4:46 PM 10/23/2023 3:25 PM Care Teams Anesthesia Attending Relationship Specialty Start Date End Date Jazmine Lozano DO PCP - General Family Medicine 01/30/20
--- OUTSIDE RECORDS SUMMARY | 2024-11-05 08:50 | XMS_ITS | Data Portability ---
Author Organization [place] [email or web address], Main Office Address [address] [place] [address] Care Team Providers Care Blind Slat Stapling Machine Operator Name Role Phone SANTINO BLUM Primary Care Provider SANTINO BLUM Referring Provider [phone] Assessment Encounter Date Assessment Date Assessment LastModified [...] Range motion is from 0-130 degrees bilaterally. Euko-un-eenrhmqu tenderness over both medial joint lines. ChloraPrep used on skin 20 mg Kenalog and 3 cc of 0.5% ropivacaine was injected into both knees. Risk of infection discussed. Impression: 67-year-old female who has moderately severe osteoarthritis of both knees. He continues get good relief from the injections. I will see her back in 3 months repeat injection. [email or web address] Not available 07/26/2022 16:20:56 11/03/2022 11/03/2022 HPI: [...] I will see her in 3 months. [email or web address] Not available 08/06/2023 16:03:28 Plan of Treatment Reminders Order Date Submit Date Provider Last Modified By Organization Details Last Modified Time Details Appointments None recorded. Lab None recorded. Referral None recorded. Procedures injection/a spiration joint/bursa (PROC) - in office procedure, administere d by provider 2023 024 [email or web address] In-Office Order, Internal Use Only DO Not Attach Compendium DO Not Attach Compendium, Do Not Delete/merge, [id number] 4 15:44:46 injection/a spiration joint/bursa (PROC) - in office procedure, administere d by provider 2023 024 [email or web address] In-Office Order, Internal Use Only DO Not Attach Compendium DO Not Attach Compendium, Do Not Delete/merge, [id number] 4 15:15:34 injection/a spiration joint/bursa (PROC) - in office procedure, administere d by provider 2022 023 [email or web address] In-Office Order, Internal Use Only DO Not Attach Compendium DO Not Attach Compendium, Do Not Delete/merge, [id number] 3 14:27:46 injection/a spiration joint/bursa (PROC) - in office procedure, administere d by provider 2022 023 [email or web address] In-Office Order, Internal Use Only DO Not Attach Compendium DO Not Attach Compendium, Do Not Delete/merge, [id number] 3 11:28:43 injection/a spiration joint/bursa (PROC) - in office procedure, administere d by provider 2022 023 [email or web address] In-Office Order, Internal Use Only DO Not Attach Compendium DO Not Attach Compendium, Do Not Delete/merge, [id number] 3 15:05:06 Surgeries None recorded. Imaging XR, knee 2022 023 [email or web address] [facility] [place], [address], [place], [address], 3 16:22:06 Medication Orders Kenalog 10 mg/mL suspension for injection 2023 024 [facility]32614, [address] [facility], [place], [place], [id number], 4 16:04:57 Marcaine (PF) 0.5 % (5 mg/mL) injection solution 2023 024 [facility] #37498, [address], [place], [place], [id number], 4 16:04:57 Kenalog 10 mg/mL suspension for injection 2023 024 [facility] #19077, [address], [place], [place], [id number], 4 15:36:20 ropivacaine (PF) 5 mg/mL (0.5 %) injection solution 2023 024 [facility] #37917, [address], [place], [place], [id number], 4 15:36:20 Kenalog 10 mg/mL suspension for injection 2022 023 [facility] #44280, [address], [place], [place], [id number], 3 15:53:58 ropivacaine (PF) 5 mg/mL (0.5 %) injection solution 2022 023 [facility] #[facility]25, [address], [place], [place], [id number], 15:53:58 Kenalog 10 mg/mL suspension for injection [address] [facility] #65311, [address], [place], [place], [id number], 15:20:01 ropivacaine (PF) 5 mg/mL (0.5 %) injection solution [address] [address] [address] [facility] #21974, [address], [place], [place], [id number], 14:25:52 Kenalog 10 mg/mL suspension for injection [address] [facility] #67274, [address], [place], [place], [id number], 16:39:35 ropivacaine (PF) 5 mg/mL (0.5 %) injection solution 2022 [address] [place] [address] [address] [facility] #97482, [address] [facility], [place], [place], [id number], 14:25:52 Patient TargetsNo targets recorded. Patient InstructionsNo instructions recorded. Reason for Referral None Reported. Results Created Date Observation Date Name Description Value Unit Range Abnormal Flag Note LastModifiedBy Organization Detail LastModifiedTime 11/04/19 23 XR, knee No observ ation record ed. [facility] [place] [address], [place], [address], 11/03/2022 15:23:46 Result Notes None recorded. Problems Name Problem SNOMED Code Status Onset Date Resolution Date Notes Provider Name and Address Organization Details Recorded Time Bilateral osteoarthr itis of knees 5897990343719 07 Active 2022 Sydney Rodriguez, CHARLIE null, [place] - [facility] 3 15:03:35 Osteoarthr itis of knee 558625435 Active Not Available [facility] 3 04:53:00 Osteoarthr itis 432383349 Active Not Available [facility] 3 04:53:00 Problem Notes None recorded. Procedures Surgical History Date Name Laterality Status Provider Name and Address Organization Details Recorded Time Gallbladder Surgery completed Not Available [facility] 06/21/2022 04:43:40 Hysterectomy completed [facility] 04:43:40 kidney excision completed Not Available [facility] 06/21/2022 04:43:40 Imaging Results None recorded. Procedure Notes None recorded. Medical Equipment None [...] 4 mL by injection route. 2023 active [facility]: 0003- 0494- 20 Not Available Not Available [...] mg capsule TK ONE C PO QD 10/20 /2023 completed Not Available Not Available Not Available [...] administe red by the provider 01/06 completed [facility]: 0409- 4276- 17 Not Available Not Available [...] 30 mg by injection route. 2023 active [facility] 58368 -064- 01 Not Available Not Available Not Available Entresto 49 mg-51 mg tablet active Not Available Not Available Not Available [employer] COVID-19 Ag Self Test kit TEST DIRECTED TODAY 02/09 completed Not Available Not Available Not Available Vitals Date Recorded Body height Provider Name an d Address Organization Details Last Updated DateTime 05/16/2023 160.02 cm Trisha Hwang [facility] [employer] [facility] 05/16/2023 15:13:53 Date Recorded Body height Provider Name an d Address Organization Details Last Updated DateTime 07/26/2022 [address] [facility] 07/26/2022 15:11:28 Date Recorded Body height Provider Name an d Address Organization Details Last Updated DateTime 08/06/2023 160.02 cm Lesley Mimss [facility] 08/06/2023 15:36:10 Date Recorded Body height Provider Name an d Address Organization Details Last Updated DateTime 11/03/2022 162.56 cm Sdyney Rodriguez [facility] [employer] [facility] 11/03/2022 14:40:45 Date Recorded Body height Body mass index (BMI) Body weight Provider Name and Address Organization Details Last Updated DateTime 02/09/2023 160.02 cm 34.5 kg/m2 34382.[address] [facility] 02/09/2023 14:32:51 Social History None recorded. Functional Status Question Answer Note LastModified by Organizat ion Details LastModified Time What is your level of alcohol consumption? Occasional [id number] Information not available 06/21/2022 Mental Status None recorded. Family History Relationship Description Onset Age of this Age Resolved Age Notes LastModified by Organization Details LastModified Time Unspecified Relation Heart disease [id number] Not available 06/21/2022 04:43:48 Unspecified Relation Hypertensive disorder [id number] Not available 06/21/2022 04:43:48 Unspecified Relation Family history of malignant neoplasm [email or web address] Not available 05/16 14:56:04 Medical History Condition Response BLINDNESS N KIDNEY STONES N MRSA N CARPAL TUNNEL SYNDROME N LUNG DISEASE/DISORDER N HISTORY OF DRUG ABUSE N COPD N RADIATION / CHEMOTHERAPY N SPORTS INJURY N ANKLE PAIN N BLOOD DISEASES N SCHIZOPHRENIA N SHINGLES N SHOULDER PAIN N DEPRESSION (INCLUDING POST ) N BOWEL PROBLEMS N STROKE/TIA N KNEE PAIN N ULCERS N BENIGN PROSTATIC HYPERPLASIA N OBESITY N [...] FOOT PROBLEM N HEART VALVE DISORDERS N SOFT TISSUE INJURY N ALLERGIES/HAYFEVER N INFECTIOUS DISEASE N HEART ARRHYTHMIA N INSOMNIA N RHEUMATOID ARTHRITIS N HIGH CHOLESTEROL / HYPERLIPIDEMIA N EDEMA N CHRONIC PAIN SYNDROME N CAROTID BLOCKAGE N BACK / NECK PROBLEMS N HAVE YOU BEEN HOSPITALIZED OR SEEN IN [facility] IN THE PAST YEAR ? N BURSITIS [...] SNOMED-CT Code Diagnosis ICD10 Code Diagnosis Note [id number] Kasi Anderson MD [facility] [place] [address] [place] [address] 09/17/2020 00:00:00 09/17/2020 16:29:15 [id number] Kasi Anderson MD [facility] [place] [address] [place] [address] 12/24/2020 00:00:00 12/24/2020 10:52:32 [id number] Kasi Anderson MD [facility] [place] [address] [place] [address] 03/23/2021 00:00:00 03/23/2021 11:53:37 [id number] MD ALFA [facility] [place] [address] [place] [address] 06/29/2021 00:00:00 06/29/2021 16:05:12 [id number] Kasi Anderson MD [facility] [place] [address] [place] [address] 10/05/2021 00:00:00 10/05/2021 12:17:30 [id number] MD [facility]FA [facility] [place] [address] [place] [address] 01/06/2022 00:00:00 01/06/2022 15:55:38 [id number] Kasi Anderson MD [facility] [place] [address] [place] [address] 04/07/2022 00:00:00 04/07/2022 14:49:23 [id number] Kasi Anderson MD [facility] [place] [address] [place] [address] 07/26/2022 14:57:06 07/26/2022 17:05:08 Bilateral osteoarthritis of knees 3245456421 35293 M17.0 [id number] Kais Anderson MD [facility] [place] [address] [place] [address] 11/03/2022 14:33:06 11/03/2022 16:22:05 Bilateral osteoarthritis of knees 2687616316 89556 M17.0 [id number] MD ALFA [facility] [place] [address] [place] [address] 02/09/2023 14:04:56 02/09/2023 15:55:55 Bilateral osteoarthritis of knees 9982620006 69824 M17.0 [id number] Kasi Anderson MD [facility] [place] [address] [place] [address] 05/16/2023 14:43:46 05/17/2023 13:48:12 Bilateral osteoarthritis of knees 5192767367 57767 M17.0 Osteoarthr itis of knee 026308892 M17.9 Osteoarthritis 009927414 M17.0 [id number] Martín Pacheco MD [facility] [place] [address] [place] [address] 08/06/2023 15:19:36 08/06/2023 16:28:42 Bilateral osteoarthritis of knees 3547404875 16075 M17.0 Health Concerns Section Related Observation LastModified by Organization Detai ls LastModified Time None Recorded Concern Status LastModified by Organization Details LastModified Time None Recorded Advance Directives Directive None Recorded Payers Insurance Date Sequence Insurance Name Policy Number Policy Marion Covered Member ID [place] Member ID Guarantor Name 07/27/2023 1 [place] Jessy Mae [id number] Jessy Mae 08/09/2023 2 [employer] (MEDICARE SUPPLEMENT) Jessy Mae [id number] Jessy Mae OBGyn Episode No OBEpisode recorded.
[2024-11-05 18:30] LABS: Hematocrit 44.9 % (37.0-47.0); Hemoglobin 14.2 g/dL (12.0-15.0); Mean Corpuscular HGB Conc 31.6 g/dl (32-36); Mean Corpuscular Hemoglobin 31.1 pg (26-34); Mean Corpuscular Volume 98.5 fl (80-100); Platelet Count Result 190 k/mm3 (150-375); Red Blood Count 4.56 M/mm3 (4.2-5.4); White Blood Count 5.1 K/mm3 (4.5-10.0)
[2024-11-05 18:52] LABS: NT Pro B Type Natriuretic Pept 135 pg/mL (19.9-100)
[2024-11-05 18:56] LABS: Alanine Aminotransferase 19 U/L (6-35); Albumin Level 4.3 g/dL (3.5-5.1); Alkaline Phosphatase 80 U/L (38-126); Anion Gap 7 mmol/L (4-12); Aspartate Amino Transferase 71 U/L (14-36); Bilirubin,Total 1.1 mg/dL (0.2-1.3); Blood Urea Nitrogen 21 mg/dL (7-17); Calcium 9.9 mg/dL (8.4-10.2); Carbon Dioxide 27 mmol/L (22-30); Chloride 104 mmol/L (98-107); Cholesterol 129 mg/dL (0-200); Estimated Glomerular Filt Rate 50; Glucose 87 mg/dL (65-110); HDL Direct 43 mg/dL; Potassium 4.6 mmol/L (3.4-5.0); Sodium 138 mmol/L (137-145); Total Protein 7.2 g/dL (6.3-8.2); Triglycerides 98 mg/dL (<150)
[2024-11-05 19:42] LABS: Thyroid Stimulating Hormone 1.640 uIU/mL (0.465-4.680)
[2024-11-05 20:30] LABS: Hemoglobin A1C 5.8 % (<5.7)
[2024-11-19 11:48] LABS: Total 1,25-Dihydroxy,Vitamin D 24.7
== END 2024-11-05 08:42 | disposition home or self-care (01) ==
PROVIDERS: PCP Family Medicine; Visit Provider Family Medicine
DX: E78.5 Hyperlipidemia, unspecified (principal); R73.03 Prediabetes; E55.9 Vitamin D deficiency, unspecified; I11.0 Hypertensive heart disease with heart failure; I50.22 Chronic systolic (congestive) heart failure; I49.3 Ventricular premature depolarization; I42.0 Dilated cardiomyopathy; E66.9 Obesity, unspecified; Z79.899 Other long term (current) drug therapy; Z95.810 Presence of automatic (implantable) cardiac defibrillator
CPT/HCPCS: 36415; 80053; 80061; 82652; 83036; 83880; 84443; 85027

== ENCOUNTER 2025-01-08 14:21 | Outpatient (CLI) | payer MEDICARE, SELFPAY ==
--- NOTE | ~2025-01-08 | MM_ITS ---
EXAMINATION: MM screening scott BI w katie HISTORY: Screening TECHNIQUE: Craniocaudal and mediolateral oblique 3-D tomosynthesis images were obtained and synthetic 2-D images were generated. CAD analysis was submitted and interpreted. COMPARISON: 09/03/2023 BREAST PARENCHYMAL COMPOSITION: There are scattered areas of fibroglandular density. FINDINGS: There is no evidence of suspicious mass, calcification, or architectural distortion to suggest malignancy. There has been no suspicious interval change. IMPRESSION: 1. No mammographic evidence of malignancy. Recommend routine screening mammography in one year. BI-RADS Category 2: Benign finding(s) Reviewed, dictated and finalized at location Q. IMPRESSION: 1. No mammographic evidence of malignancy. Recommend routine screening mammogra phy in one year. BI-RADS Category 2: Benign finding(s)
--- OUTSIDE RECORDS SUMMARY | 2025-01-08 14:30 | XMS_ITS | Clinical Summary ---
Author Organization [facility] D Address [address] [place] [address] Care Team Providers Care Hunter Name Role Phone Jazmine Lozano DO Primary Care Provider [phone] Kalee Murcia MD Unavailable [phone] Kerri Atkins RN Unavailable Unava ilable Carlos Alberto Grant RN Unavailable Unav ailable Faye Cespedes Unavailable Unavailable Faye Cespedes Unavailable Unavailable Allergies No known active allergies Medications calcium carbonate-vitam in D3 (CALCIUM 600 + D,3,) 600 mg calcium- 200 unit capsule 0 0 07/10/2014 Active multivitamin tablet tablet take 1 tablet by oral route every day with food 0 0 07/10/2014 Active [id number] a-fish oil (OMEGA 3) 350-400 mg capsule [...] WITH MEALS 180 tablet 3 03/07/2024 Active spironolactone (ALDACTONE) 25 mg tablet TAKE 1 TABLET BY MOUTH DAILY 90 tablet 3 06/12/2024 Active Entresto 49-51 mg tablet TAKE 1 TABLET BY MOUTH TWICE DAILY 180 tablet 3 06/16/2024 Active amoxicillin 500 mg capsule TAKE ALL 4 CAPSULES 30 MINUTES PRIOR TO DENTAL VISIT 10/13/2024 Active Farxiga 10 mg tablet Take 1 tablet (10 mg total) by mouth daily 90 tablet 3 11/13/2024 11/14/19 26 Active Hospital, Clinic, or Other Facility Administered [...] statin Assessment & Plan (03/01/2022 2:46 PM UROLOGIST MD): Well controlled with an LDL of 16 mg/dL. Continue low intensity Lipitor. Assessment & Plan (02/25/2021 11:44 AM CDT): She is on chronic lipid-lowering therapy. LDL 41 on 09/09/2020. Continue atorvastatin 10 mg daily. Assessment & Plan (09/10/2020 8:21 AM CDT): On low-dose atorvastatin, LDL is 41. Nonfasting triglycerides are elevated. Continue atorvastatin 10 mg daily. Presence of cardiac resynchr onization therapy defibrillator (LAP WINDING MACHINE OPERATOR-D) 03/04/2020 Overview (03/04/2020): Medtronic Chalfont HF QUAD LAP WINDING MACHINE OPERATOR-D implanted on 03/03/20 for NICM/CHF/LBBB. Toney/Victor Manuel [...] meds Assessment & Plan (03/01/2022 2:45 PM UROLOGIST MD): With restored LV function. Continue Altace and [...] Altace. Assessment & Plan (02/23/2020 4:47 PM UROLOGIST MD): Severe nonischemic dilated cardiomyopathy with [place] heart Association class 2 symptoms. LV ejection [...] cardiac rhythm abnormalities: a report of the [place] [employer]/[place] [employer] Association Task Force on Practice Guidelines [...] cardiac rhythm abnormalities: a report of the [place] [employer] Foundation/[place] [employer] Association Task Force on Practice Guidelines and the Heart Rhythm Society. J Am Rudy Cardiol 2013;61:e6-75. Class I: LAP WINDING MACHINE OPERATOR is indicated for patients who have LVEF [...] Encounters Date Type Department Care Team Description 01/06/2025 10:45 AM CDT Office Visit [facility] [address] [place] [address] 8th [place] [address] [place] [address] Henrique Zuluaga MD Presence of cardiac resynchronization therapy defibrillator (LAP WINDING MACHINE OPERATOR-D) (Primary Dx); PVC (premature ventricular contraction) 01/06/2025 10:15 AM CDT Ancillary Procedure [facility] [address] [place] [address] 8th [place] [address] [place] [address] NICM (nonischemic cardiomyopathy) (HCC) (Primary Dx); Fitting and adjustment of automatic implantable cardioverter-defibrillat or 12/19/2024 Orders Only [facility] [address] [place] [address] Medicine 8th [place] [address] [place] [address] Henrique Zuluaga MD 12/01/2024 Telephone [facility] Transplant Heart [address] [place] [address] [address] Mailstop [phone] [place] [address] Carlos Alberto Grant RN 11/30/2024 Results Follow-Up [facility] [address] [place] [address] Kalee Murcia MD ECG 12 lead 11/06/2024 Telephone [facility] Transplant Heart [address] [place], [place] [address]op [phone] [place] [address] Kerri Atkins RN 11/05/2024 Telephone [facility] Trans[facility] Heart [address] [place] [address] [place] [address] Reilly Coy 11/04/2024 10:00 AM CDT Office Visit [facility] [address] [facility] Medical Office Building [address] [place] [address] Kalee Murcia MD Nonischemic cardiomyopathy (HCC) (Primary Dx); PVC (premature ventricular contraction); 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); Primary hypertension; Class 1 obesity due to excess calories with serious comorbidity and body mass index (BMI) of 32.0 to 32.9 in adult; Weight loss counseling, encounter for 11/04/2024 Telephone [facility] Heart [address] [place] [address] Mailop [phone] [place] [address] Kerri Atkins, DENZEL from Last 3 Months Immunizations Immunization Administration Dates Next Due Influenza, Quadrivalent, Spl it, Preservative Free, Intramuscular 2018 Tdap 12/16/2018 Surgical History Surgery Date Site/Laterality Comments CHOLECYSTECTOMY Cholecystectomy NEPHRECTOMY Left Nephrectomy HYSTERECTOMY February 2012 Hysterectomy TOTAL ABDOMINAL HYSTERECTOMY Hysterectomy, total INSERT / REPLACE / REMOVE PACEMAKER Medical History Medical History Date Comments Hx Other Medical Diverticulosis Hx Other Medical diverticulosis; Comments: [facility] 07/10/2014 - Hx Other Medical nephrectomy; Co mments: [facility] 07/10/2014 - Cardiomyopathy Left bundle branch block Hyperlipidemia Arthritis Heart [...] on file Legal Sex Female 4:02 PM UROLOGIST MD Gender Identity Female 02/13/2020 7:45 AM CDT Sexual Orientation Straight 02/13/2020 7: 45 AM CDT Obstetrics History Last Filed Vital Signs Vital Sign Reading Time Taken Comments Blood Pressure 105/71 01/06/2025 10:08 AM CDT Pulse 95 01/06/2025 10:08 AM CDT Temperature 36.6 C (97.9 F) 10/23/2023 6:40 AM CDT Respiratory Rate 17 10/23/2023 6:40 AM CDT Oxygen Saturation 97% 01/06/2025 10: 08 AM CDT Inhaled Oxygen Concentration - - Weight 85.6 kg (188 lb 12.8 oz) 025 10:08 AM CDT Height 162.6 cm (5' 4) 01/06/2025 10:0 8 AM CDT Body Mass Index 32.41 01/06/2025 10:08 AM CDT Plan of Treatment Health Maintenance Due Date Last Done Comments Breast Cancer Screening-Mammogram 1955 Colon Cancer Screening-Colonoscopy 1955 Depression Screening 1955 Hepatitis C Screening 1955 Osteoporosis Screening-Bone Density Scan 1956 Hepatitis B Screening 01/14/1974 Zoster Vaccine (2 of 3) 11/27/2011 10/02/2011 Well Visit 65+ 01/14/2021 Fall Risk Assessment 10/22/2024 10/23/2023 Influenza Vaccine (#1) 2024 , 01/17/2022, 04/06/2021, Additional history exists DTaP/Tdap/Td Vaccine (3 - Td or Tdap) 12/16/2028 12/16/2018, 02/10/2011 Pneumococcal vaccine 65+ Completed 01/22/2023, 03/24 Medical Devices Implanted Type Area Nitric Acid Plant Operator Device Identifier Shelf Expiration Date Model / Serial / Lot Medtronic Inc [id number] Cardiac Chalfont Hf 2 Chamber Df4 Inline Cnc Is4 - [id number] - [id number] Implanted:Qty: 1 on 03/03/2020 by True Ziegler MD at [facility] ICD Medtronic Inc [id number] 07/04/2021 DTP [id number] / [id number] / Medtronic Cardiac Rhythm Mgmt [id number] Sprint Quattro Secure 62cm Tripolar Screw In Extendable - [id number] - [id number] Implanted:Qty: 1 on 03/03/2020 by True Ziegler MD at [facility] Lead Medtronic Inc [id number] 11/11/2021 [id number] / [id number] / Medtronic Cardiac Rhythm Mgmt 5076-52 Capsurefix Novus 6.2fr 2mm 52cm Bipolar Screw In Implantable Latex Free - [id number] - [id number] Implanted:Qty: 1 on 03/03/2020 by True Ziegler MD at [facility] Lead Medtronic Inc [id number] 12/23/2021 507 6-52 / [id number] / Medtronic Inc [id number] Lead Attain Stability Quad Mri Surescan Lv 88mm - [id number] - [id number] Implanted:Qty: 1 on 03/03/2020 by True Ziegler MD at [facility] Lead Medtronic Inc [id number] 08/28/2021 [id number] / [id number] / [employer]iva Medical Inc Device Vascular Closure Femoral Artery Bioabsorbable Dual Method Vascade 6-7fr Collagen [id number] - [id number] - [id number] Implanted:Qty: 1 on 10/22/2023 by Henrique Zuluaga MD at [facility] Vascular Closure Device [employer] Inc 07/24/2025 [id number] / [id number] / [id number] [employer] Inc Vascade Mvp 6-12fr Venous Closure [id number] - [id number] - [id number] Implanted:Qty: 1 on 10/22/2023 by Henrique Zuluaga MD at [facility] Vascular Closure Device [employer] 06/26/2025 [id number] / [id number] / [id number] [employer] Vascade Mvp 6-12fr Venous Closure [id number] - [id number] - [id number] Implanted:Qty: 1 on 10/22/2023 by Henrique Zuluaga MD at [facility] Vascular Closure Device [employer] 06/26/2025 [id number] / [id number] / [id number] Procedures Procedure Name Priority Date/Time Associated Diagnosis Comments DEVICE CHECK - REMOTE Routine 12/19/2024 9:50 PM CDT PRO B-TYPE NATRIURETIC PEPTIDE Routine 11/05/2024 8:59 AM CDT Chronic systolic heart failure (HCC) Presence of cardiac resynchronization therapy defibrillator (LAP WINDING MACHINE OPERATOR-D) TSH Routine 11/05/2024 CBC WITH AUTO DIFFERENTIAL Routine 11/05/2024 COMPREHENSIVE METABOLIC PANEL Routine 11/05/2024 LP W CHOL/HDL RATIO Routine 11/05/2024 VITAMIN D 25 HYDROXY Routine 11/05/2024 ECG 12-LEAD Routine 11/04/2024 10:28 AM CDT PVC (premature ventricular contraction) from Last 3 Months Results * DEVICE CHECK - REMOTE (12/19/2024 9:50 PM CDT) Anatomical Region Laterality Modality Other 12/19/2024 9:50 PM CDT Narrative 12/23/2024 7:04 AM CDT Interpretation Summary: Battery and Leads (BL) Normal parameters noted on battery and lead(s) --- 6.4 yrs remaining longevity (implanted 2019). Lead impedance, sensing, and threshold trends stable and appropriate. No short V-V intervals. Presenting Rhythm (VA) Atrial Pacing-Ventricular Pacing (AP-EROSION CONTROL COORDINATOR) --- AP/EROSION CONTROL COORDINATOR 75 bpm. Arrhythmic events (AE) No new arrhythmic events in monitoring period --- Since 09/20/24: No AHR or VHR episodes. Transmission Information (TI) Device Summary Report Follow Up (FU) Patient's primary treating physician will be apprised of findings Procedure Note Henrique Zuluaga MD - 12/23/2024 Interpretation Summary: Battery and Leads (BL) Normal parameters noted on battery and lead(s) --- 6.4 yrs remaininglongevity (implanted 2019). Lead impedance, sensing, and thresholdtrends stable and appropriate. No short V-V intervals. Presenting Rhythm (VA) Atrial Pacing-Ventricular Pacing (AP-EROSION CONTROL COORDINATOR) --- AP/EROSION CONTROL COORDINATOR 75 bpm. Arrhythmic events (AE) No new arrhythmic events in monitoring period --- Since 09/20/24: No AHRor VHR episodes. Transmission Information (TI) Device Summary Report Follow Up (FU) Patient's primary treating physician will be apprised of findings Henrique Zuluaga MD CV CARDIAC SERVI RAQUEL PROCEDURES Final Result * (ABNORMAL) Pro B-type natriuretic peptide (11/05/2024 8:59 AM CDT) [facility] SCRIBED NT PROBNP 135(A) 19.9 - 100 TXP NO LAB FOUND Blood 11/05/2024 8:59 AM CDT Kalee Murcia MD LAB BLOOD ORDERABLES Fi nal Result TXP NO LAB FOUND * LP w Chol/HDL Ratio (11/05/2024) [facility] SCRIBED Cholesterol, Total 129 0 - 200 mg/dL TXP NO LAB FOUND SCRIBED Triglycerides 98 <150 mg/dL TXP NO LAB FOUND SCRIBED HDL 43 >35 mg/dL TXP NO L AB FOUND SCRIBED LDL 52 <130 mg/dL TXP NO LAB FOUND Blood 11/05/2024 Jazmine Lozano DO LAB BLOOD ORDERABLES Final Result TXP NO LAB FOUND * CBC with auto differential (11/05/2024) [facility] SCRIBED WBC 5.1 4.5 - 10.0 K/cumm TXP NO LAB FOUND SCRIBED Hemoglobin 14.2 12.0 - 15.0 g/dL TXP NO LAB FOUND SCRIBED Hematocrit 44.9 37.0 - 47.0 % TXP NO LAB FOUND SCRIBED Platelets 190 150 - 375 K/cumm TXP NO LAB FOUND SCRIBED RBC 4.56 4.20 - 5.40 M/cumm TXP NO LAB FOUND Blood 11/05/2024 [facility] BLOOD ORDERABLES Final Result Performing Organization Address [facility] Co de Phone Number TXP NO LAB FOUND * (ABNORMAL) Vitamin D 25 hydroxy (11/05/2024) SCRIBED 25-OH Vitamin D 24.7(A) 24.8 - 81.5 ng/mL TXP NO LAB FOUND Blood 11/05/2024 [facility] LAB BLOOD ORDERABLES Final Result Performing Organization Address [facility] de Phone Number TXP NO LAB FOUND * TSH (11/05/2024) Scribed TSH 1.64 0.47 - 4.68 mcU/mL TXP NO LAB FOUND Blood 11/05/2024 [facility] LAB BLOOD ORDERABLES Edite d Result - Final Performing Organization Address [facility] de Phone Number TXP NO LAB FOUND * (ABNORMAL) Comprehensive metabolic panel (11/05/2024) SCRIBED Sodium 138 137 - 145 mmol/L TXP NO LAB FOUND SCRIBED Potassium 4.6 3.4 - 5.0 mmol/L TXP NO LAB FOUND SCRIBED Chloride 104 98 - 107 mmol/L TXP NO LAB FOUND SCRIBED Carbon Dioxide 27 22 - 30 mmol/L TXP NO LAB FOUND SCRIBED Anion Gap 7 4 - 12 mmol/L TXP NO LAB FOUND SCRIBED Urea Nitrogen (BUN) 21(A) 7 - 17 mg/dl TXP NO LAB FOUND SCRIBED Creatinine 1.09(A) 0.7 - 1.0 mg/dl TXP NO LAB FOUND SCRIBED Glucose 87 65 - 110 mg/dl TXP NO LAB FOUND SCRIBED Calcium 9.9 8.4 - 10.2 mg/dl TXP NO LAB FOUND SCRIBED Bilirubin 1.1 0.2 - 1.3 mg/dl TXP NO LAB FOUND SCRIBED Plasma Protein 7.2 6.3 - 8.2 g/dl TXP NO LAB FOUND SCRIBED Albumin 4.3 3.5 - 5.1 g/dl TXP NO LAB FOUND SCRIBED Alkaline Phosphatase 80 38 - 126 Units/L TXP NO LAB FOUND SCRIBED Alanine Transaminase (ALT) 19 6 - 35 Units/L TXP NO LAB FOUND SCRIBED Aspartate Transaminase (AST) 71(A) 14 - 36 Units/L TXP NO LAB FOUND SCRIBED eGFR 50 >60 TXP NO LAB FOUND Blood 11/05/2024 us Jazmine Lozano DO LAB BLOOD ORDERABLES Final Result TXP NO LAB FOUND * ECG 12 lead (11/04/2024 10:28 AM CDT) Kalee Murcia MD ECG ORDERABLES Edited Result - Final from Last 3 Months Insurance MEDICARE [facility] Member Subscriber Plan / Payer (Ef fective 2022-Present) Name:Jessy Mae Relation to Subscriber:Self Name:Lynne Maegeraldine Mojica Payer ID:[id number] Group ID:Not on file Type:COMMERCIAL Address: [facility] [address] [place] [id number] MEDICARE AARP MEDICARE [facility] MEDICARE [facility] Advance Directives For more information, please contact: [phone] * Full Code (Latest Code Status on File) Date Activated Date Inactivated Comments 10/22/2023 4:46 PM 10/23/2023 3:25 PM Care Teams Hunter Relationship Specialty Start Date End Date Jazmine Lozano DO PCP - General Family Medicine 01/30/20 Kalee Murcia MD [address] [address] Reel Film Inspector Cardiology 12/03/24 Kerri Atkins, network control operatorManager Professional Development 12/03/24 Carlos Alberto Grant, network control operatorManager Professional Development 12/03/24 Faye Cespedes Primary Loan Operations Manager Transplant 12/03/24 Faye Cespedes Primary Loan Operations Manager 01/08/25
--- OUTSIDE RECORDS SUMMARY | 2025-01-08 14:30 | XMS_ITS | Encounter Summary ---
Author Organization [facility] Healthcare Address [address] [place] [address] Care Team Providers Care Hospital Chief Financial Officer Name Role Phone Jazmine Lozano Primary Care Provider [phone] Kalee Murcia MD Unavailable [phone] Kerri Atkins RN Unavailable Unava ilable Carlos Alberto Grant RN Unavailable Unav ailable Faye Cespedes Unavailable Unavailable Faye Cespedes Unavailable Unavailable Encounter Details Date Type Department Care Team (Late st Contact Info) Description 11/30/2024 Results Follow-Up [facility] [address] [place] [address] Kalee Murcia MD [address] [facility] [address] [place] [address] ECG 12 lead Social History Tobacco Use Types Packs/Day Years [...] on file Legal Sex Female 4:02 PM BILLET RECORDER Gender Identity Female 02/13/2020 7:45 AM CDT Sexual Orientation Straight 02/13/2020 7: 45 AM CDT documented as of this encounter Plan of Treatment Not on file documented as of this encounter Visit Diagnoses Not on filedocumented in this encounter Care Teams Hospital Chief Financial Officer Relationship Specialty Start Date End Date Jazmine Lozano DO PCP - General Family Medicine 01/30/20 Kalee Murcia MD [address] [address] Seafood Technology Specialist Cardiology 12/03/24 Kerri Atkins, research geologistHedis Coordinator 12/03/24 Carlos Alberto Grant, research geologistHedis Coordinator 12/03/24 Faye Cespedes Primary Mri Supervisor Transplant 12/03/24 Faye Cespedes Primary Mri Supervisor 01/08/25 documented as of this encounter
== END 2025-01-08 14:22 | disposition home or self-care (01) ==
LOC: ANHFOHIMG 14:25
PROVIDERS: Visit Provider Family Medicine
DX: Z12.31 Encounter for screening mammogram for malignant neoplasm of breast (principal)
CPT/HCPCS: 77063; 77067